=== PATIENT | female | born 1970 | race Caucasian/White ===

== ENCOUNTER 2016-11-15 18:43 | Emergency (ER) | payer BC ==
[~2016-11-15] VITALS: Ht 162.6 cm; Wt 110.7 kg
[2016-11-15 18:54] VITALS: BP 96/73
[2016-11-15] MEDS ORDERED: GABA300C3 PO ×2 (19:08)
[2016-11-15] MEDS ORDERED: RANI300T PO (19:08)
[2016-11-15] MEDS ORDERED: SERT50TA PO (19:08)
[2016-11-15] MEDS ORDERED: AMIT10TA PO (19:08)
[2016-11-15] MEDS ORDERED: ATOR40TA PO (19:08)
[2016-11-15] MEDS ORDERED: PHEN12.5 PR (19:08)
[2016-11-15] MEDS ORDERED: ONDA8TAB8 PO (19:08)
[2016-11-15] MEDS ORDERED: VITA100066 PO (19:08)
[2016-11-15] MEDS ORDERED: CETI10TA PO (19:09)
[2016-11-15] MEDS ORDERED: ONDANSETRON 4MG/2ML VIAL (J2405) IV ONE (21:00)
[2016-11-15] MEDS ORDERED: KETOROLAC 30 MG/ML VIAL (J1885) IV ONE (21:00)
[2016-11-15] MEDS ORDERED: NS 1,000 ML IV ONE (21:00)
== END 2016-11-15 23:21 | disposition home or self-care (01) ==
LOC: M ED 19:49
DX: E86.0 Dehydration (principal); R11.2 Nausea with vomiting, unspecified; R19.7 Diarrhea, unspecified; I10 Essential (primary) hypertension; K21.9 Gastro-esophageal reflux disease without esophagitis; E78.5 Hyperlipidemia, unspecified; E66.9 Obesity, unspecified; G89.29 Other chronic pain; F99 Mental disorder, not otherwise specified; F17.210 Nicotine dependence, cigarettes, uncomplicated; Z88.5 Allergy status to narcotic agent; Z88.8 Allergy status to other drugs, medicaments and biological substances; Z79.899 Other long term (current) drug therapy
CPT/HCPCS: 81001; 81025; 96361; 96374; 96375; 99282; J1885; J2405

== ENCOUNTER → 2016-11-15 | Outpatient (REF) | payer BC ==
[~2016-11-15] MED LIST: AMIT10TA PO; ATOR40TA PO; CETI10TA PO; GABA300C3 PO; ONDA8TAB8 PO; PHEN12.5 PR; RANI300T PO; SERT50TA PO; VITA100066 PO
[2016-11-15 12:52] LABS: BASO % 0.3 % (0.0-1.0); EOS # 0.1 K/mm3 (0.0-0.50); EOS % 1.5 % (0.0-3.0); LARGE UNSTAINED CELL # 0.1 K/mm3 (0.0-0.4); LYMPH # 2.7 K/mm3 (1.5-4.5); LYMPH % 36.8 % (24.0-44.0); MEAN CORPUSCULAR HEMOGLOBIN 31.4 pg (27.0-33.0); MEAN CORPUSCULAR HGB CONC 32.5 g/dl (32.0-36.5); MEAN CORPUSCULAR VOLUME 96.5 fl (80.0-96.0); MONO # 0.3 K/mm3 (0.0-0.8); MONO % 4.6 % (0.0-5.0); NEUTROPHILS # 3.8 K/mm3 (1.8-7.7); NEUTROPHILS % 54.7 % (36.0-66.0); PLATELET COUNT, AUTOMATED 167 k/mm3 (150-450); RED CELL DISTRIBUTION WIDTH 13.1 % (11.5-14.5)
[2016-11-15 13:11] LABS: ANION GAP 10 MEQ/L (8-16); BLOOD UREA NITROGEN 21 MG/DL (7-18); CALCIUM LEVEL 8.7 MG/DL (8.5-10.1); CARBON DIOXIDE LEVEL 27 MEQ/L (21-32); CHLORIDE LEVEL 107 MEQ/L (98-107); GLOMERULAR FILTRATION RATE > 60.0 (>58); GLUCOSE, FASTING 77 MG/DL (70-105); POTASSIUM SERUM 3.9 MEQ/L (3.5-5.1); SODIUM LEVEL 144 MEQ/L (136-145)
== END ==
LOC: M LABDRAW1 11:41
PROVIDERS: ATTEND Physician Assistant Medical
DX: R11.2 Nausea with vomiting, unspecified (principal)

== ENCOUNTER → 2017-02-16 | Outpatient (CLI) | payer BC ==
[~2017-02-16] MED LIST changes: +GABA-282 PO; -GABA300C3 PO
--- NOTE | 2017-02-16 13:40 | REP ---
MR LUMBAR SPINE WITHOUT CONTRAST: HISTORY: Back pain. Decreased signal intensity on T2-weighted is present in the L5-S1 intervertebral disc. The disc is decreased in height. These findings are consistent with disc degeneration. There is no disc bulge or herniation at the L1-2 through L3-4 levels. There is hypertrophy of the posterior articulating facets at the L3-4 level. The nerves exit the neural foramina without compression. A diffuse disc bulge is present at the L4-5 level. There is minimal compression of the thecal sac. There is hypertrophy of the posterior articulating facets. The L4 nerves exit the neural foramina without compression. A diffuse disc bulge is present at the L5-S1 level. This abuts the thecal sac. There is hypertrophy of the posterior articulating facets. There are 5 mm of grade 1 spondylolisthesis of L5 on S1. This is associated with L5 pars defects. There is compression of the L5 nerves in the neural foramina. The conus medullaris is normal in appearance terminating at the level of the T12-L1 intervertebral disc. Normal signal intensity is present in the lumbar vertebral bodies. IMPRESSION: 1. Diffuse disc bugle at the L4-5 level with minimal thecal sac compression. 2. Diffuse disc bulge at the L5-S1 level. This abuts the thecal sac. There is grade 1 spondylolisthesis of L5 on S1 with associated L5 pars defects. There is compression of the L5 nerves in he neural foramina. Signed by Joe Bar MD 02/16/2017 01:45 P
== END ==
LOC: M PLARAD 10:22
PROVIDERS: ATTEND Anesthesiology Pain Medicine
DX: M54.16 Radiculopathy, lumbar region (principal)

== ENCOUNTER 2017-05-17 17:58 | Emergency (ER) | payer BC ==
[~2017-05-17] VITALS: Ht 162.6 cm; Wt 132.0 kg
[~2017-05-17 17:58] MED LIST changes: -ATOR40TA PO; +ATOR40TA75 PO
[2017-05-17] MEDS ORDERED: SERT-155 (18:05)
[2017-05-17] MEDS ORDERED: OMEP40CA2 (18:05)
[2017-05-17] MEDS ORDERED: ONDANSETRON 4 MG ORAL DISINTEGRATING TAB (S0181) PO ONE (19:15)
[2017-05-17] MEDS ORDERED: KETOROLAC 60 MG/2 ML VIAL (J1885) IM ONE (19:15)
--- NOTE | 2017-05-17 19:56 | REP ---
Clinical: Abdominal pain with constipation and bloating. Technique: Two supine views of the abdomen and pelvis. Findings: Bowel gas pattern is nonspecific although mild fecal stasis cannot be excluded. No evidence for bowel obstruction or perforation. No organomegaly. No abnormal calcifications although phleboliths are identified in the pelvis. Skeletal structures demonstrate age-related changes. Impression: Nonspecific bowel gas pattern. Cannot exclude mild fecal stasis. Signed by Patrick Franklin MD 05/17/2017 07:47 P
[2017-05-17] MEDS ORDERED: NAPR500T PO (20:41)
[2017-05-17] MEDS ORDERED: MIRA3350 PO (20:41)
[2017-05-17] MEDS ORDERED: CYCL10TA PO (20:41)
[2017-05-17 20:50] VITALS: BP 131/72
== END 2017-05-17 22:10 | disposition home or self-care (01) ==
LOC: M ED 17:58
DX: S39.012A Strain of muscle, fascia and tendon of lower back, initial encounter (principal); K59.00 Constipation, unspecified; Z72.0 Tobacco use; X58.XXXA Exposure to other specified factors, initial encounter; Y92.89 Other specified places as the place of occurrence of the external cause; Y93.89 Activity, other specified; Y99.9 Unspecified external cause status
CPT/HCPCS: 74000; 96372; 99282; J1885; J3360

== ENCOUNTER → 2017-06-27 | Outpatient (REF) | payer BC ==
[~2017-06-27] MED LIST changes: +CYCL10TA PO; +MIRA3350 PO; +NAPR500T PO; +OMEP40CA2; +SERT-155
[2017-06-27 11:25] LABS: BASO % 0.5 % (0.0-1.0); EOS # 0.1 10^3/uL (0.0-0.50); EOS % 1.1 % (0.0-3.0); IMMATURE GRANULOCYTE % 0.2 % (0-0); LYMPH % 44.4 % (24.0-44.0); MEAN CORPUSCULAR HEMOGLOBIN 31.2 pg (27.0-33.0); MEAN CORPUSCULAR VOLUME 94.7 fl (80.0-96.0); MONO # 0.4 10^3/uL (0.0-0.8); MONO % 5.3 % (0.0-5.0); NEUTROPHILS # 3.2 10^3/uL (1.8-7.7); NEUTROPHILS % 48.5 % (36.0-66.0); PLATELET COUNT, AUTOMATED 174 10^3/uL (150-450); RED CELL DISTRIBUTION WIDTH 13.6 % (11.5-14.5); WHITE BLOOD COUNT 6.7 10^3/uL (4.0-10.0)
[2017-06-27 12:36] LABS: ERYTHROCYTE SEDIMENTATION RATE 15 mm/hr (0-20)
[2017-06-27 12:37] LABS: ALBUMIN 3.6 GM/DL (3.2-5.2); ALKALINE PHOSPHATASE 67 U/L (45-117); ALT/SGPT 25 U/L (12-78); ANION GAP 5 MEQ/L (8-16); AST/SGOT 12 U/L (15-37); BILIRUBIN,TOTAL 0.4 MG/DL (0.2-1.0); BLOOD UREA NITROGEN 11 MG/DL (7-18); CALCIUM LEVEL 8.8 MG/DL (8.5-10.1); CARBON DIOXIDE LEVEL 29 MEQ/L (21-32); CHLORIDE LEVEL 107 MEQ/L (98-107); CHOLESTEROL LEVEL 158 MG/DL (<200); GLOMERULAR FILTRATION RATE > 60.0 (>58); GLUCOSE, FASTING 79 MG/DL (70-105); POTASSIUM SERUM 4.2 MEQ/L (3.5-5.1); SODIUM LEVEL 141 MEQ/L (136-145); TOTAL PROTEIN 6.6 GM/DL (6.4-8.2); TRIGLYCERIDES LEVEL 153 MG/DL (<150)
== END ==
LOC: M LABDRAW1 09:31
PROVIDERS: ATTEND Physician Assistant Medical
DX: M25.50 Pain in unspecified joint (principal); E78.5 Hyperlipidemia, unspecified; R11.0 Nausea; E55.9 Vitamin D deficiency, unspecified

== ENCOUNTER 2018-04-04 11:57 | Emergency (ER) | payer BC ==
[2018-04-04 12:29] LABS: BASO % 0.4 % (0.0-1.0); EOS # 0.1 10^3/uL (0.0-0.50); EOS % 1.1 % (0.0-3.0); HEMATOCRIT 35.9 % (36.0-47.0); IMMATURE GRANULOCYTE % 0.1 % (0-3.0); LYMPH # 3.3 10^3/uL (1.5-4.5); LYMPH % 42.9 % (24.0-44.0); MEAN CORPUSCULAR HEMOGLOBIN 31.7 pg (27.0-33.0); MEAN CORPUSCULAR HGB CONC 33.4 g/dl (32.0-36.5); MEAN CORPUSCULAR VOLUME 94.7 fl (80.0-96.0); MONO # 0.5 10^3/uL (0.0-0.8); MONO % 6.2 % (0.0-5.0); NEUTROPHILS # 3.7 10^3/uL (1.8-7.7); NEUTROPHILS % 49.3 % (36.0-66.0); PLATELET COUNT, AUTOMATED 163 10^3/uL (150-450); RED BLOOD COUNT 3.79 10^6/uL (4.00-5.40); RED CELL DISTRIBUTION WIDTH 13.6 % (11.5-14.5); WHITE BLOOD COUNT 7.6 10^3/uL (4.0-10.0)
[2018-04-04 12:40] LABS: INR 1.02; PROTHROMBIN TIME 13.5 SECONDS (12.1-14.4)
[2018-04-04 13:13] LABS: ALBUMIN 3.7 GM/DL (3.2-5.2); ALBUMIN/GLOBULIN RATIO 1.12 (1.00-1.93); ALKALINE PHOSPHATASE 58 U/L (45-117); ALT/SGPT 24 U/L (12-78); ANION GAP 7 MEQ/L (8-16); AST/SGOT 10 U/L (7-37); BILIRUBIN,DIRECT 0.1 MG/DL (0.0-0.2); BILIRUBIN,TOTAL 0.6 MG/DL (0.2-1.0); BLOOD UREA NITROGEN 13 MG/DL (7-18); CALCIUM LEVEL 8.9 MG/DL (8.5-10.1); CARBON DIOXIDE LEVEL 27 MEQ/L (21-32); CHLORIDE LEVEL 110 MEQ/L (98-107); CPK CREATINE PHOSPHOKINASE 70 U/L (26-192); CREATININE FOR GFR 0.64 MG/DL (0.55-1.30); GLOMERULAR FILTRATION RATE > 60.0 (>58); GLUCOSE, FASTING 80 MG/DL (70-100); LIPASE 61 U/L (73-393); POTASSIUM SERUM 3.8 MEQ/L (3.5-5.1); SODIUM LEVEL 144 MEQ/L (136-145); TROPONIN I < 0.02 NG/ML (< 0.10)
[2018-04-04 13:19] LABS: CK-MB VALUE MASS 1.2 NG/ML (<3.6); MB/CK RELATIVE INDEX 1.71 (< OR =4); NT-PRO BNP 60 PG/ML (<125)
[2018-04-04] MEDS: NS 1,000 ML IV (13:48)
[2018-04-04] MEDS: KETOROLAC 30 MG/ML VIAL (J1885) IV (13:49)
[2018-04-04 14:04] LABS: AMORPHOUS SEDIMENT RFX SMALL (NEGATIVE); KETONE, URINE AUTO RFX TRACE mg/dL (NEGATIVE); LEUKOCYTE ESTERASE UR AUTO RFX NEGATIVE (NEGATIVE); MUCUS, URINE RFX SMALL (NEGATIVE); NITRITE, URINE AUTO RFX NEGATIVE (NEGATIVE); RBC, URINE AUTO RFX 3 /HPF (0-3); SPECIFIC GRAVITY UR AUTO RFX 1.011 (1.002-1.035); SQUAM EPITHELIAL CELL UR AURFX 4 /HPF (0-6); WBC, URINE AUTO RFX 2 /HPF (0-3)
== END 2018-04-04 16:34 | disposition home or self-care (01) ==
LOC: M ED 11:57
DX: B34.9 Viral infection, unspecified (principal); R07.89 Other chest pain; R00.1 Bradycardia, unspecified; R11.2 Nausea with vomiting, unspecified; K21.9 Gastro-esophageal reflux disease without esophagitis; E78.5 Hyperlipidemia, unspecified; M54.9 Dorsalgia, unspecified; K92.9 Disease of digestive system, unspecified; Z79.899 Other long term (current) drug therapy; Z88.8 Allergy status to other drugs, medicaments and biological substances; Z88.5 Allergy status to narcotic agent
CPT/HCPCS: J1885

== ENCOUNTER 2018-06-06 14:24 | Emergency (ER) | payer BC ==
[2018-06-06] MEDS: ONDANSETRON 4MG/2ML VIAL (J2405) IV (16:31)
[2018-06-06] MEDS: NS 1,000 ML IV (16:31)
[2018-06-06] MEDS: GASTROGRAFIN SOLUTION 30ML PO ×2 (16:39→17:12)
[2018-06-06 16:43] LABS: BASO # 0.1 10^3/uL (0.0-0.2); BASO % 0.6 % (0.0-1.0); EOS # 0.1 10^3/uL (0.0-0.50); EOS % 1.5 % (0.0-3.0); HEMATOCRIT 35.8 % (36.0-47.0); HEMOGLOBIN 11.9 g/dl (12.0-15.5); IMMATURE GRANULOCYTE % 0.4 % (0-3.0); LYMPH % 48.2 % (24.0-44.0); MEAN CORPUSCULAR HEMOGLOBIN 31.6 pg (27.0-33.0); MEAN CORPUSCULAR HGB CONC 33.2 g/dl (32.0-36.5); MONO # 0.5 10^3/uL (0.0-0.8); MONO % 5.7 % (0.0-5.0); NEUTROPHILS # 3.7 10^3/uL (1.8-7.7); NEUTROPHILS % 43.6 % (36.0-66.0); PLATELET COUNT, AUTOMATED 155 10^3/uL (150-450); RED BLOOD COUNT 3.77 10^6/uL (4.00-5.40); RED CELL DISTRIBUTION WIDTH 13.4 % (11.5-14.5); WHITE BLOOD COUNT 8.4 10^3/uL (4.0-10.0)
[2018-06-06 16:51] LABS: KETONE, URINE AUTO RFX NEGATIVE (NEGATIVE); LEUKOCYTE ESTERASE UR AUTO RFX NEGATIVE (NEGATIVE); MUCUS, URINE RFX SMALL (NEGATIVE); NITRITE, URINE AUTO RFX NEGATIVE (NEGATIVE); RBC, URINE AUTO RFX 2 /HPF (0-3); SQUAM EPITHELIAL CELL UR AURFX 2 /HPF (0-6); WBC, URINE AUTO RFX 1 /HPF (0-3)
[2018-06-06 17:14] LABS: ALBUMIN 3.4 GM/DL (3.2-5.2); ALBUMIN/GLOBULIN RATIO 0.94 (1.00-1.93); ALKALINE PHOSPHATASE 56 U/L (45-117); ALT/SGPT 19 U/L (12-78); ANION GAP 5 MEQ/L (8-16); AST/SGOT 13 U/L (7-37); BILIRUBIN,DIRECT < 0.1 MG/DL (0.0-0.2); BILIRUBIN,TOTAL 0.3 MG/DL (0.2-1.0); BLOOD UREA NITROGEN 12 MG/DL (7-18); CALCIUM LEVEL 8.1 MG/DL (8.5-10.1); CARBON DIOXIDE LEVEL 27 MEQ/L (21-32); CHLORIDE LEVEL 109 MEQ/L (98-107); GLOMERULAR FILTRATION RATE > 60.0 (>58); GLUCOSE, FASTING 73 MG/DL (70-100); LIPASE 92 U/L (73-393); POTASSIUM SERUM 4.2 MEQ/L (3.5-5.1); SODIUM LEVEL 141 MEQ/L (136-145)
[2018-06-06] MEDS ORDERED: ISOVUE-370 76% 100ML VIAL (Q9967) As Ordered (17:46)
[2018-06-06] MEDS: KETOROLAC 30 MG/ML VIAL (J1885) IV (18:33)
== END 2018-06-06 19:07 | disposition home or self-care (01) ==
LOC: M ED 14:24
DX: R10.9 Unspecified abdominal pain (principal); E78.5 Hyperlipidemia, unspecified; M54.30 Sciatica, unspecified side; Z79.899 Other long term (current) drug therapy; Z88.5 Allergy status to narcotic agent; Z88.8 Allergy status to other drugs, medicaments and biological substances; F17.210 Nicotine dependence, cigarettes, uncomplicated
CPT/HCPCS: Q9963

== ENCOUNTER 2019-03-09 23:56 | Emergency (ER) | payer BC ==
[~2019-03-09] VITALS: Ht 165.1 cm; Wt 109.5 kg
[~2019-03-09 23:56] MED LIST changes: -GABA-282 PO; +GABA-843 PO; +NAPR-837 PO; -NAPR500T PO; +ONDA4TAB6 PO; -PHEN12.5 PR; +PHEN1SUP10 PR; +SERT-141 PO; -SERT50TA PO
[2019-03-10] MEDS ORDERED: guaiFENesin/CODEINE SYRUP 5 ML UDC PO ONE (01:00)
[2019-03-10] MEDS ORDERED: GI COCKTAIL 50ML BTL(HYOSCYAMINE/MAALOX/LIDOCAINE VISCOUS)(1:3:1) PO ONE (01:00)
[2019-03-10] MEDS ORDERED: ONDANSETRON 4 MG ORAL DISINTEGRATING TAB (Q0162 PER 1MG) PO ONE (01:15)
[2019-03-10] MEDS ORDERED: GUAI1SOL7 PO (01:50)
[2019-03-10 01:54] VITALS: BP 136/70
--- NOTE | 2019-03-10 07:20 | REP ---
Clinical: Cough and chest pain . Comparison: 04/04/2018 . Technique: PA and lateral. Findings: The mediastinum and cardiac silhouette are normal. The lung tafoya are clear and without acute consolidation, effusion, or pneumothorax. The skeletal structures are intact and normal. Impression: 1. No acute cardiopulmonary process. Electronically Signed by Patrick Franklin MD 03/10/2019 07:12 A
== END 2019-03-10 01:58 | disposition home or self-care (01) ==
LOC: M ED 23:56
DX: J06.9 Acute upper respiratory infection, unspecified (principal); B34.9 Viral infection, unspecified; K21.9 Gastro-esophageal reflux disease without esophagitis; E78.5 Hyperlipidemia, unspecified; Z79.899 Other long term (current) drug therapy; Z88.5 Allergy status to narcotic agent; Z88.8 Allergy status to other drugs, medicaments and biological substances; F17.210 Nicotine dependence, cigarettes, uncomplicated
CPT/HCPCS: 71046; 99283; Q0162

== ENCOUNTER → 2019-03-24 | Outpatient (REF) | payer BC ==
[~2019-03-24] MED LIST changes: +GUAI1SOL7 PO
[2019-03-24 11:57] LABS: BASO % 0.5 % (0.0-1.0); EOS # 0.1 10^3/uL (0.0-0.50); HEMATOCRIT 37.7 % (36.0-47.0); HEMOGLOBIN 12.4 g/dl (12.0-15.5); LYMPH # 2.6 10^3/uL (1.5-4.5); LYMPH % 42.3 % (24.0-44.0); MEAN CORPUSCULAR HEMOGLOBIN 31.6 pg (27.0-33.0); MEAN CORPUSCULAR HGB CONC 32.9 g/dl (32.0-36.5); MEAN CORPUSCULAR VOLUME 95.9 fl (80.0-96.0); MONO # 0.3 10^3/uL (0.0-0.8); MONO % 5.4 % (0.0-5.0); NEUTROPHILS # 3.1 10^3/uL (1.8-7.7); NEUTROPHILS % 50.6 % (36.0-66.0); PLATELET COUNT, AUTOMATED 160 10^3/uL (150-450); RED BLOOD COUNT 3.93 10^6/uL (4.00-5.40); WHITE BLOOD COUNT 6.1 10^3/uL (4.0-10.0)
[2019-03-24 12:35] LABS: ALBUMIN 3.4 GM/DL (3.2-5.2); ALT/SGPT 17 U/L (12-78); BILIRUBIN,TOTAL 0.4 MG/DL (0.2-1.0); BLOOD UREA NITROGEN 13 MG/DL (7-18); CALCIUM LEVEL 8.7 MG/DL (8.5-10.1); CARBON DIOXIDE LEVEL 27 MEQ/L (21-32); CHLORIDE LEVEL 109 MEQ/L (98-107); CHOLESTEROL LEVEL 151 MG/DL (<200); CHOLESTEROL RISK RATIO 3.511 (<5); CREATININE FOR GFR 0.71 MG/DL (0.55-1.30); GLOMERULAR FILTRATION RATE > 60.0 (>58); GLUCOSE, FASTING 84 MG/DL (70-100); HDL CHOLESTEROL 43 MG/DL (>40); LDL CHOLESTEROL 89 MG/DL (<100); NON-HDL-C 108 MG/DL; POTASSIUM SERUM 4.4 MEQ/L (3.5-5.1); SODIUM LEVEL 142 MEQ/L (136-145); TOTAL PROTEIN 6.6 GM/DL (6.4-8.2); TRIGLYCERIDES LEVEL 96 MG/DL (<150); TROPONIN I < 0.02 NG/ML (< 0.10)
== END ==
LOC: M LABDRAW1 11:01
PROVIDERS: ATTEND Family Medicine
DX: R07.9 Chest pain, unspecified (principal)

== ENCOUNTER 2019-09-05 10:06 | Emergency (ER) | payer BC ==
[~2019-09-05] VITALS: Ht 162.6 cm; Wt 111.0 kg
[~2019-09-05 10:06] MED LIST changes: -OMEP40CA2; +OMEP40CA97; -SERT-155; +SERT50TA29
--- NOTE | 2019-09-05 10:40 | REP ---
Clinical: Acute chest pain . Comparison: 03/10/2019 . Findings: The mediastinum and cardiac silhouette are stable and within normal limits for portable technique. The lung tafoya are clear without acute consolidation, effusion, or pneumothorax. Skeletal structures are intact. Impression: No acute cardiopulmonary process appreciated. Electronically Signed by Patrick Franklin MD 09/05/2019 10:31 A
[2019-09-05 10:45] LABS: BASO % 0.4 % (0.0-1.0); EOS # 0.2 10^3/uL (0.0-0.5); EOS % 1.7 % (0.0-3.0); HEMATOCRIT 41.4 % (36.0-47.0); HEMOGLOBIN 13.3 g/dl (12.0-15.5); LYMPH # 3.8 10^3/uL (1.5-5.0); LYMPH % 42.1 % (24.0-44.0); MEAN CORPUSCULAR HEMOGLOBIN 31.5 pg (27.0-33.0); MEAN CORPUSCULAR HGB CONC 32.1 g/dl (32.0-36.5); MEAN CORPUSCULAR VOLUME 98.1 fl (80.0-96.0); MONO # 0.6 10^3/uL (0.0-0.8); MONO % 6.5 % (0.0-5.0); NEUTROPHILS # 4.4 10^3/uL (1.5-8.5); NEUTROPHILS % 48.9 % (36.0-66.0); PLATELET COUNT, AUTOMATED 174 10^3/uL (150-450); RED BLOOD COUNT 4.22 10^6/uL (4.00-5.40); WHITE BLOOD COUNT 9.1 10^3/uL (4.0-10.0)
[2019-09-05] MEDS ORDERED: GI COCKTAIL 50ML BTL(HYOSCYAMINE/MAALOX/LIDOCAINE VISCOUS)(1:3:1) PO ONE (10:45)
[2019-09-05] MEDS ORDERED: ONDANSETRON 4MG/2ML VIAL (J2405) IV ONE (10:45)
[2019-09-05 10:55] LABS: INR 1.03; PROTHROMBIN TIME 13.2 SECONDS (11.8-14.0)
[2019-09-05 10:56] LABS: PARTIAL THROMBOPLASTIN TIME 30.8 SECONDS (25.0-38.4)
[2019-09-05 11:17] LABS: ALBUMIN 3.8 GM/DL (3.2-5.2); ALT/SGPT 17 U/L (12-78); BILIRUBIN,DIRECT 0.1 MG/DL (0.0-0.2); BILIRUBIN,TOTAL 0.4 MG/DL (0.2-1.0); BLOOD UREA NITROGEN 15 MG/DL (7-18); CALCIUM LEVEL 8.9 MG/DL (8.5-10.1); CARBON DIOXIDE LEVEL 28 MEQ/L (21-32); CHLORIDE LEVEL 109 MEQ/L (98-107); CK-MB VALUE MASS < 1.0 NG/ML (<3.6); CPK CREATINE PHOSPHOKINASE 55 U/L (26-192); CREATININE FOR GFR 0.74 MG/DL (0.55-1.30); FREE T4 0.98 NG/DL (0.76-1.46); GLOMERULAR FILTRATION RATE > 60.0 (>51); GLUCOSE, FASTING 79 MG/DL (70-100); LIPASE 95 U/L (73-393); MB/CK RELATIVE INDEX 1.82 (< OR =4); SODIUM LEVEL 143 MEQ/L (136-145); TOTAL PROTEIN 7.1 GM/DL (6.4-8.2); TROPONIN I < 0.02 NG/ML (< 0.10)
[2019-09-05] MEDS ORDERED: DEXI30CA2 PO (11:25)
[2019-09-05] MEDS ORDERED: SUCRALFATE 1 GM TAB PO ONE (12:00)
[2019-09-05 12:27] LABS: D-DIMER QUANT 659.68 ng/ml (<500)
[2019-09-05] MEDS ORDERED: ISOVUE-370 76% 100ML VIAL (Q9967) As Ordered ONE (12:47)
--- NOTE | 2019-09-05 13:18 | REP ---
Clinical: Acute chest pain. Technique: Axial contrast enhanced images from the thoracic inlet to the upper abdomen using 100 ml Isovue 370 intravenous contrast material with coronal and sagittal re-formations. Findings: Satisfactory enhancement of the pulmonary vasculature is achieved and no filling defects are identified to suggest pulmonary embolus. Thoracic aorta is normal caliber without aneurysm or dissection. Heart and pericardium are normal. Bilateral lung tafoya are well aerated and clear without acute pulmonary parenchymal consolidation or atelectasis. No nodule or mass lesion. No pleural effusion/reaction. No pneumothorax. No adenopathy. Impression: No evidence for pulmonary embolus. No acute pleuroparenchymal or mediastinal process. Electronically Signed by Patrick Franklin MD 09/05/2019 01:09 P
--- NOTE | 2019-09-05 13:21 | REP ---
Clinical: Acute abdominal pain. Technique: Axial contrast enhanced images from the lung bases to the pubic symphysis using 100 ml Isovue 370 intravenous contrast material with coronal and sagittal re-formations. Comparison: 06/06/2018. Findings: Lung bases are clear. Visualized heart and pericardium normal. Liver, spleen, pancreas, gallbladder, bilateral adrenal glands and kidneys are normal. The enteric system is without obstruction or acute inflammatory process. Scattered sigmoid diverticula noted without acute diverticulitis. Pelvis demonstrates normal bladder and evidence for prior hysterectomy. No ascites. No free air. No adenopathy. Abdominal aorta without aneurysm or dissection. Musculoskeletal structures without focal aggressive lesion. Impression: No acute abdominopelvic pathology appreciated. Electronically Signed by Patrick Franklin MD 09/05/2019 01:12 P
[2019-09-05 17:30] LABS: CPK CREATINE PHOSPHOKINASE 46 U/L (26-192); MB/CK RELATIVE INDEX 2.17 (< OR =4); TROPONIN I < 0.02 NG/ML (< 0.10)
[2019-09-05] MEDS ORDERED: OMEP40CA97 PO (18:11)
[2019-09-05] MEDS ORDERED: SUCR1TA PO (18:11)
[2019-09-05 18:16] VITALS: BP 109/71
--- NOTE | 2019-09-07 14:59 | ECGEPIP ---
[facility] - ED Test Date: 2019-09-05 Pat Name: GEORGE MCKENZIE Department: Room: - Gender: Female Crew Boss: : 1970 Requested By: CHRIS Leblanc Order Number: [id number] Reading MD: Tee Reed Measurements Intervals [place] Rate: 60 P: 43 NC: 195 QRS: 8 QRSD: 91 T: 29 QT: 387 QTc: 389 Interpretive Statements SINUS RHYTHM LOW QRS VOLTAGE IN PRECORDIAL LEADS SIMILAR TO 04/04/18 Electronically Signed on 09-07-2019 14:59:06 EST by Tee Reed
--- NOTE | 2019-09-07 15:10 | ECGEPIP ---
[facility] - ED Test Date: 2019-09-05 Pat Name: GEORGE MCKENZIE Department: Room: - Gender: Female Barrelhead Inspector: ER : 1970 Requested By: CHRIS Leblanc Order Number: [id number] Reading MD: Tee Reed Measurements Intervals [place] Rate: 50 P: 56 [place]: 194 QRS: 27 QRSD: 84 T: 40 QT: 431 QTc: 395 Interpretive Statements SINUS BRADYCARDIA WITH SINUS ARRHYTHMIA SIMILAR TO PRIOR ON SAME DATE Electronically Signed on 09-07-2019 15:10:48 EST by Tee Reed
== END 2019-09-05 18:49 | disposition home or self-care (01) ==
LOC: M ED 10:06
DX: K21.9 Gastro-esophageal reflux disease without esophagitis (principal); E78.5 Hyperlipidemia, unspecified; Z79.899 Other long term (current) drug therapy; Z88.5 Allergy status to narcotic agent; Z88.8 Allergy status to other drugs, medicaments and biological substances; F17.210 Nicotine dependence, cigarettes, uncomplicated
CPT/HCPCS: 71045; 71275; 74177; 80048; 80076; 82550; 82553; 83690; 84439; 84443; 84484; 85025; 85379; 85610; 85730; 93005; 93041; 94760; 96374; 99285; J2405; Q9967

== ENCOUNTER → 2019-09-11 | Outpatient (CLI) | payer BC ==
[~2019-09-11] MED LIST changes: +DEXI30CA2 PO; +OMEP40CA97 PO; +SUCR1TA PO
[2019-09-11 07:13] LABS: BASO % 0.5 % (0.0-1.0); EOS # 0.1 10^3/uL (0.0-0.5); EOS % 1.5 % (0.0-3.0); HEMATOCRIT 36.1 % (36.0-47.0); HEMOGLOBIN 11.9 g/dl (12.0-15.5); LYMPH # 3.8 10^3/uL (1.5-5.0); LYMPH % 51.3 % (24.0-44.0); MEAN CORPUSCULAR HEMOGLOBIN 31.6 pg (27.0-33.0); MEAN CORPUSCULAR VOLUME 95.8 fl (80.0-96.0); MONO # 0.4 10^3/uL (0.0-0.8); MONO % 5.4 % (0.0-5.0); PLATELET COUNT, AUTOMATED 158 10^3/uL (150-450); RED BLOOD COUNT 3.77 10^6/uL (4.00-5.40); WHITE BLOOD COUNT 7.4 10^3/uL (4.0-10.0)
[2019-09-11 07:39] LABS: ALBUMIN 3.4 GM/DL (3.2-5.2); ALT/SGPT 15 U/L (12-78); BILIRUBIN,TOTAL 0.4 MG/DL (0.2-1.0); BLOOD UREA NITROGEN 15 MG/DL (7-18); CALCIUM LEVEL 8.8 MG/DL (8.5-10.1); CARBON DIOXIDE LEVEL 25 MEQ/L (21-32); CHLORIDE LEVEL 112 MEQ/L (98-107); CHOLESTEROL LEVEL 148 MG/DL (<200); CHOLESTEROL RISK RATIO 3.288 (<5); CREATININE FOR GFR 0.69 MG/DL (0.55-1.30); GLOMERULAR FILTRATION RATE > 60.0 (>51); GLUCOSE, FASTING 82 MG/DL (70-100); HDL CHOLESTEROL 45 MG/DL (>40); LDL CHOLESTEROL 89 MG/DL (<100); MAGNESIUM LEVEL 1.9 MG/DL (1.8-2.4); NON-HDL-C 103 MG/DL; RHEUMATOID FACTOR QUANT < 10.0 IU/ML (<15.0); SODIUM LEVEL 142 MEQ/L (136-145); TOTAL PROTEIN 6.2 GM/DL (6.4-8.2); TRIGLYCERIDES LEVEL 72 MG/DL (<150)
== END ==
LOC: M LAB 06:41
PROVIDERS: ATTEND Physician Assistant
DX: M12.9 Arthropathy, unspecified (principal); E66.01 Morbid (severe) obesity due to excess calories; E55.9 Vitamin D deficiency, unspecified

== ENCOUNTER → 2020-01-21 | Outpatient (CLI) | payer BC ==
[~2020-01-21] MED LIST changes: +CYCL-707 PO; -CYCL10TA PO
--- NOTE | 2020-01-22 02:33 | REP ---
Clinical: Trauma. Technique: AP, lateral, bilateral oblique views right hand . Findings: The osseous structures and joint spaces are intact and normal. There is no evidence for acute fracture or dislocation. Surrounding soft tissues are unremarkable. No subcutaneous emphysema or radiodense foreign body. Impression: No acute fracture or dislocation. Electronically Signed by Patrick Franklin MD 01/22/2020 02:24 A
== END ==
LOC: M WUC 15:04
PROVIDERS: ATTEND Physician Assistant
DX: S60.221A Contusion of right hand, initial encounter (principal); X58.XXXA Exposure to other specified factors, initial encounter; Y92.89 Other specified places as the place of occurrence of the external cause; Y93.9 Activity, unspecified; Y99.9 Unspecified external cause status

== ENCOUNTER → 2020-02-25 | Outpatient (CLI) | payer BC ==
[~2020-02-25] MED LIST changes: +DEXI60CA2 PO; +FAMO40TA3 PO; +GABA-282 PO; -GABA-843 PO; +GABA-845 PO; +REGL5TAB2 PO; +SUCR1TAB56 PO
[2020-02-25 16:21] LABS: BASO % 0.5 % (0.0-1.0); EOS # 0.1 10^3/uL (0.0-0.5); EOS % 1.2 % (0.0-3.0); HEMATOCRIT 37.7 % (36.0-47.0); HEMOGLOBIN 12.2 g/dl (12.0-15.5); LYMPH # 3.5 10^3/uL (1.5-5.0); LYMPH % 42.1 % (24.0-44.0); MEAN CORPUSCULAR HEMOGLOBIN 30.9 pg (27.0-33.0); MEAN CORPUSCULAR HGB CONC 32.4 g/dl (32.0-36.5); MEAN CORPUSCULAR VOLUME 95.4 fl (80.0-96.0); MONO # 0.6 10^3/uL (0.0-0.8); MONO % 6.7 % (0.0-5.0); NEUTROPHILS % 49.3 % (36.0-66.0); PLATELET COUNT, AUTOMATED 156 10^3/uL (150-450); RED BLOOD COUNT 3.95 10^6/uL (4.00-5.40); WHITE BLOOD COUNT 8.2 10^3/uL (4.0-10.0)
[2020-02-25 16:46] LABS: ALBUMIN 3.6 GM/DL (3.2-5.2); ALT/SGPT 18 U/L (12-78); BILIRUBIN,TOTAL 0.4 MG/DL (0.2-1.0); BLOOD UREA NITROGEN 14 MG/DL (7-18); CARBON DIOXIDE LEVEL 28 MEQ/L (21-32); CHLORIDE LEVEL 109 MEQ/L (98-107); CREATININE FOR GFR 0.73 MG/DL (0.55-1.30); GLOMERULAR FILTRATION RATE > 60.0 (>51); GLUCOSE, FASTING 103 MG/DL (70-100); POTASSIUM SERUM 3.8 MEQ/L (3.5-5.1); SODIUM LEVEL 140 MEQ/L (136-145); TOTAL PROTEIN 6.5 GM/DL (6.4-8.2)
== END ==
LOC: M WUC 15:05
PROVIDERS: ATTEND Nurse Practitioner Family
DX: K62.5 Hemorrhage of anus and rectum (principal)

== ENCOUNTER → 2020-02-26 | Outpatient (REF) | payer BC ==
[~2020-02-26] MED LIST changes: -DEXI60CA2 PO; -FAMO40TA3 PO; -GABA-282 PO; +GABA-843 PO; -GABA-845 PO; -REGL5TAB2 PO; -SUCR1TAB56 PO
== END ==
LOC: M LAB REF 16:04
PROVIDERS: ATTEND Nurse Practitioner Family
DX: K62.5 Hemorrhage of anus and rectum (principal)

== ENCOUNTER 2020-04-25 20:25 | Emergency (ER) | payer BC ==
[2020-04-25] MEDS ORDERED: KETOROLAC 30 MG/ML 1ML VIAL As Ordered ONE (20:27)
[2020-04-25] MEDS ORDERED: ONDANSETRON 4MG/2ML VIAL ONE (20:27)
[2020-04-25] MEDS ORDERED: KETOROLAC 30 MG/ML 1ML VIAL ONE (20:27)
[2020-04-25] MEDS ORDERED: ONDANSETRON 4MG/2ML VIAL As Ordered ONE (20:27)
[2020-04-28] MEDS ORDERED: KETOROLAC 30 MG/ML 1ML VIAL As Ordered ONE (06:41)
[2020-05-11] MEDS ORDERED: SERT50TA29 (10:24)
[2020-05-11] MEDS ORDERED: SUCR1TAB56 PO (10:24)
[2020-05-11] MEDS ORDERED: DEXI60CA2 PO (10:24)
[2020-06-07 11:18] LABS: INR 1.03; PROTHROMBIN TIME 13.7 SECONDS (12.5-14.3)
[2020-06-09 19:46] LABS: HEMATOCRIT 40.2 % (36.0-47.0); HEMOGLOBIN 13.4 g/dl (12.0-15.5); MEAN CORPUSCULAR HEMOGLOBIN 31.5 pg (27.0-33.0); MEAN CORPUSCULAR HGB CONC 33.3 g/dl (32.0-36.5); MEAN CORPUSCULAR VOLUME 94.6 fl (80.0-96.0); PLATELET COUNT, AUTOMATED 175 10^3/uL (150-450); RED BLOOD COUNT 4.25 10^6/uL (4.00-5.40); WHITE BLOOD COUNT 8.3 10^3/uL (4.0-10.0)
[2020-07-11 11:20] LABS: ALBUMIN 3.8 GM/DL (3.2-5.2); ALT/SGPT 16 U/L (12-78); BILIRUBIN,TOTAL 0.3 MG/DL (0.2-1.0); BLOOD UREA NITROGEN 18 MG/DL (7-18); CALCIUM LEVEL 8.9 MG/DL (8.5-10.1); CARBON DIOXIDE LEVEL 26 MEQ/L (21-32); CHLORIDE LEVEL 110 MEQ/L (98-107); CK-MB VALUE MASS < 1.0 NG/ML (<3.6); CPK CREATINE PHOSPHOKINASE 46 U/L (26-192); CREATININE FOR GFR 0.76 MG/DL (0.55-1.30); GLOMERULAR FILTRATION RATE > 60.0 (>51); GLUCOSE, FASTING 86 MG/DL (70-100); LIPASE 85 U/L (73-393); MB/CK RELATIVE INDEX 2.17 (< OR =4); SODIUM LEVEL 142 MEQ/L (136-145); TOTAL PROTEIN 7.1 GM/DL (6.4-8.2); TROPONIN I < 0.02 NG/ML (< 0.10)
== END 2020-04-25 22:15 | disposition home or self-care (01) ==
LOC: M ED 20:25
DX: R10.9 Unspecified abdominal pain (principal); K21.9 Gastro-esophageal reflux disease without esophagitis; M43.17 Spondylolisthesis, lumbosacral region; M51.27 Other intervertebral disc displacement, lumbosacral region; M48.07 Spinal stenosis, lumbosacral region; Z79.899 Other long term (current) drug therapy; Z88.5 Allergy status to narcotic agent; Z88.8 Allergy status to other drugs, medicaments and biological substances
CPT/HCPCS: 74176; 80053; 82550; 82553; 83690; 84484; 85027; 85610; 96374; 96375; 99284; J1885; J2405

== ENCOUNTER 2020-04-28 05:56 | Emergency (ER) | payer BC ==
[~2020-04-28] VITALS: Ht 165.1 cm; Wt 106.3 kg
[2020-04-28] MEDS ORDERED: GABA-845 PO (06:06)
[2020-04-28] MEDS ORDERED: KETOROLAC 30 MG/ML 1ML VIAL IV ONE ×2 (06:45)
[2020-04-28] MEDS ORDERED: methocarbamoL 750 MG TAB PO ONE (06:45)
[2020-04-28] MEDS ORDERED: NS 1,000 ML IV ONE (06:45)
[2020-04-28 07:18] LABS: BASO % 0.6 % (0.0-1.0); EOS # 0.1 10^3/uL (0.0-0.5); EOS % 1.1 % (0.0-3.0); HEMATOCRIT 36.7 % (36.0-47.0); HEMOGLOBIN 12.1 g/dl (12.0-15.5); LYMPH % 42.5 % (24.0-44.0); MEAN CORPUSCULAR HEMOGLOBIN 31.3 pg (27.0-33.0); MEAN CORPUSCULAR VOLUME 95.1 fl (80.0-96.0); MONO # 0.5 10^3/uL (0.0-0.8); MONO % 6.9 % (0.0-5.0); NEUTROPHILS # 3.5 10^3/uL (1.5-8.5); NEUTROPHILS % 48.5 % (36.0-66.0); PLATELET COUNT, AUTOMATED 154 10^3/uL (150-450); RED BLOOD COUNT 3.86 10^6/uL (4.00-5.40); WHITE BLOOD COUNT 7.1 10^3/uL (4.0-10.0)
--- NOTE | 2020-04-28 07:53 | REPVR ---
PROCEDURE INFORMATION: Exam: US Abdomen, Limited; Right Upper Quadrant Exam date and time: 04/28/2020 7:36 AM Age: 49 years old Clinical indication: Abdominal pain; Flank; Right upper quadrant (ruq); Additional info: Ruq/shoulder pain since 3 am this morning TECHNIQUE: Imaging protocol: US abdomen. Real time ultrasound with image documentation. Limited exam focused on the right upper quadrant. COMPARISON: GALLBLADDER US 07/29/2016 5:13 PM FINDINGS: Liver: Fatty infiltration of the liver without focal mass. Gallbladder: Newly visualized nonshadowing 6 mm nodular echogenic focus contiguous with the gallbladder wall, suggesting polyp. No gallbladder wall thickening, edema, or pericholecystic fluid. Common bile duct: Borderline dilatation of the incompletely visualized common bile duct measuring 7 mm in maximum diameter. Pancreas: Inhomogeneous echotexture in the pancreas, which is partially obscured by bowel gas. Right kidney: Normal right renal morphology. No hydronephrosis. Other findings: Additional findings as described above. IMPRESSION: 1. Nonshadowing 6 mm nodular echogenic focus contiguous with the gallbladder wall, suggesting polyp. 2. Borderline dilatation of the incompletely visualized common bile duct measuring 7 mm in maximum diameter. 3. Additional findings as described above. Electronically signed by: Stefano Franklin On 04/28/2020 07:53:59 AM
[2020-04-28 08:02] LABS: ALBUMIN 3.6 GM/DL (3.2-5.2); ALT/SGPT 16 U/L (12-78); BILIRUBIN,DIRECT < 0.1 MG/DL (0.0-0.2); BILIRUBIN,TOTAL 0.5 MG/DL (0.2-1.0); BLOOD UREA NITROGEN 16 MG/DL (7-18); CARBON DIOXIDE LEVEL 28 MEQ/L (21-32); CHLORIDE LEVEL 110 MEQ/L (98-107); CREATININE FOR GFR 0.89 MG/DL (0.55-1.30); GLOMERULAR FILTRATION RATE > 60.0 (>51); GLUCOSE, FASTING 81 MG/DL (70-100); LIPASE 70 U/L (73-393); POTASSIUM SERUM 4.2 MEQ/L (3.5-5.1); SODIUM LEVEL 141 MEQ/L (136-145); TOTAL PROTEIN 6.7 GM/DL (6.4-8.2)
[2020-04-28 08:14] LABS: APPEARANCE, URINE CLOUDY (CLEAR); BACTERIA, URINE AUTO 1+ (NEGATIVE); BILIRUBIN, URINE AUTO 1+ (NEGATIVE); BLOOD, URINE BLOOD NEGATIVE (NEGATIVE); COLOR, URINE AMBER (YELLOW); GLUCOSE, URINE (UA) AUTO NEGATIVE (NEGATIVE); KETONE, URINE AUTO NEGATIVE (NEGATIVE); LEUKOCYTE ESTERASE, URINE AUTO NEGATIVE (NEGATIVE); MUCUS, URINE MODERATE (NEGATIVE); NITRITE, URINE AUTO NEGATIVE (NEGATIVE); PROTEIN, URINE AUTO 1+ mg/dL (NEGATIVE); RBC, URINE AUTO 1 /HPF (0-3); SPECIFIC GRAVITY URINE AUTO 1.028 (1.002-1.035); SQUAMOUS EPITHELIAL CELL UR AU 10 /HPF (0-6); WBC, URINE AUTO 6 /HPF (0-3)
[2020-04-28 08:38] VITALS: BP 108/53
[2020-05-11] MEDS ORDERED: DEXI60CA2 PO (10:24)
[2020-05-11] MEDS ORDERED: SERT50TA29 (10:24)
[2020-05-11] MEDS ORDERED: SUCR1TAB56 PO (10:24)
== END 2020-04-28 08:40 | disposition home or self-care (01) ==
LOC: M ED 05:56
DX: M54.5 Low back pain (principal); M62.838 Other muscle spasm; K82.4 Cholesterolosis of gallbladder; F33.9 Major depressive disorder, recurrent, unspecified; K21.9 Gastro-esophageal reflux disease without esophagitis; Z79.899 Other long term (current) drug therapy; Z88.5 Allergy status to narcotic agent; Z88.8 Allergy status to other drugs, medicaments and biological substances; F17.210 Nicotine dependence, cigarettes, uncomplicated
CPT/HCPCS: 76705; 80048; 80076; 81001; 83690; 85025; 96361; 96374; 99284; J1885

== ENCOUNTER → 2020-05-13 | Outpatient (CLI) | payer BC ==
[~2020-05-13] MED LIST changes: +DEXI60CA2 PO; +GABA-845 PO; +SUCR1TAB56 PO
== END ==
LOC: M LABSMTC 12:41
PROVIDERS: ATTEND Anesthesiology
DX: Z01.812 Encounter for preprocedural laboratory examination (principal); Z20.828 Contact with and (suspected) exposure to other viral communicable diseases
CPT/HCPCS: C9803; U0003

== ENCOUNTER 2020-05-18 12:12 | Day surgery (SDC) | payer BC ==
[~2020-05-18] VITALS: Ht 162.6 cm; Wt 107.0 kg
[~2020-05-18 12:12] MED LIST changes: +NS 1,000 ML IV ONE
[2020-05-18] MEDS ORDERED: propofoL 500 MG/50 ML VIAL As Ordered ONE (13:07)
[2020-05-18] MEDS ORDERED: fentaNYL 100 MCG/2 ML INJECTION (J3010) As Ordered ONE (13:07)
[2020-05-18] MEDS ORDERED: LIDOCAINE 2% 100MG/5ML SDV (FOR ANES.) As Ordered ONE (13:51)
[2020-05-18 14:35] VITALS: BP 101/54
--- NOTE | 2020-05-19 11:39 | ROOR ---
Patient Name: Nichole Watson Procedure Date: 05/18/2020 10:44 AM Date of : 1970 Age: 49 Room: [facility] Gender: Female Note Status: Finalized Procedure: Colonoscopy Indications: Screening in patient at increased risk: Colorectal cancer in mother before age 60, High risk colon cancer surveillance: Personal history of colonic polyps Providers: Osmin THOMPSON MD Referring MD: Maxine Fermin MD Requesting Provider: Medicines: Monitored Anesthesia Care Complications: No immediate complications. Procedure: Pre-Anesthesia Assessment: - The heart rate, respiratory rate, oxygen saturations, blood pressure, adequacy of pulmonary ventilation, and response to care were monitored throughout the procedure. The Colonoscope was introduced through the anus and advanced to the terminal ileum, with identification of the appendiceal orifice and IC valve. The colonoscopy was performed without difficulty. The patient tolerated the procedure well. The quality of the bowel preparation was good. Findings: The perianal and digital rectal examinations were normal. Three sessile polyps were found in the ascending colon. The polyps were 5 to 6 mm in size. These polyps were removed with a cold snare. Resection and retrieval were complete. Internal hemorrhoids were found during retroflexion. The hemorrhoids were small/medium-sized. The exam was otherwise without abnormality on direct and retroflexion views. Impression: - Three 5 to 6 mm polyps in the ascending colon, removed with a cold snare. Resected and retrieved. - Small Internal hemorrhoids. - The examination was otherwise normal on direct and retroflexion views. Recommendation: - Repeat colonoscopy in 3 years for surveillance. Osmin Thompson MD Osmin THOMPSON MD 05/18/2020 2:15:34 PM Electronically signed by Osmin THOMPSON MD Number of Addenda: 0 Note Initiated On: 05/18/2020 10:44 AM Estimated Blood Loss: Estimated blood loss: none.
--- NOTE | 2020-05-19 11:39 | ROOR ---
Patient Name: Nichole Watson Procedure Date: 05/18/2020 1:08 PM Date of : 1970 Age: 49 Room: [facility] Gender: Female Note Status: Finalized Procedure: Upper GI endoscopy Indications: Heartburn Providers: Osmin THOMPSON MD Referring MD: Maxine Fermin MD Requesting Provider: Medicines: Monitored Anesthesia Care Complications: No immediate complications. Procedure: Pre-Anesthesia Assessment: - The heart rate, respiratory rate, oxygen saturations, blood pressure, adequacy of pulmonary ventilation, and response to care were monitored throughout the procedure. The Endoscope was introduced through the mouth, and advanced to the second part of duodenum. The upper GI endoscopy was accomplished without difficulty. The patient tolerated the procedure well. Findings: Scattered mild inflammation characterized by erythema was found in the gastric body. Biopsies were taken with a cold forceps for histology. Small Hiatal Hernia. The exam of the stomach was otherwise normal. The examined duodenum was normal. The examined esophagus was normal. Impression: - Normal esophagus. - Mild patchy gastritis/gastropathy. Biopsied. - Small Hiatal Hernia. - Otherwise normal stomach. - Normal examined duodenum. Recommendation: - Continue present medications. - Telephone endoscopist for pathology results in 2 weeks. - Follow an antireflux regimen. Osmin Thompson MD Osmin THOMPSON MD 05/18/2020 1:55:46 PM Electronically signed by Osmin THOMPSON MD Number of Addenda: 0 Note Initiated On: 05/18/2020 1:08 PM Estimated Blood Loss: Estimated blood loss: none.
== END 2020-05-18 14:49 | disposition home or self-care (01) ==
LOC: M OPP 12:12
PROVIDERS: ATTEND Internal Medicine Gastroenterology
DX: Z12.11 Encounter for screening for malignant neoplasm of colon (principal); Z86.010 Personal history of colon polyps; Z80.0 Family history of malignant neoplasm of digestive organs; D12.2 Benign neoplasm of ascending colon; K64.8 Other hemorrhoids; K29.70 Gastritis, unspecified, without bleeding; R12 Heartburn; K44.9 Diaphragmatic hernia without obstruction or gangrene; F17.210 Nicotine dependence, cigarettes, uncomplicated; Z79.899 Other long term (current) drug therapy; Z88.5 Allergy status to narcotic agent; Z88.8 Allergy status to other drugs, medicaments and biological substances
CPT/HCPCS: 43239; 45385; 88305; 88342; J3010

== ENCOUNTER → 2020-09-24 | Outpatient (REF) | payer BC ==
[~2020-09-24] MED LIST changes: +GABA-282 PO; -GABA-843 PO; -NS 1,000 ML IV ONE; +REGL5TAB2 PO
[2020-09-24 16:00] LABS: HEMOGLOBIN A1c 5.8 %
[2020-09-24 16:07] LABS: ALBUMIN 3.9 GM/DL (3.2-5.2); ALT/SGPT 20 U/L (12-78); BILIRUBIN,TOTAL 0.3 MG/DL (0.2-1.0); BLOOD UREA NITROGEN 11 MG/DL (7-18); CALCIUM LEVEL 8.7 MG/DL (8.5-10.1); CARBON DIOXIDE LEVEL 31 MEQ/L (21-32); CHLORIDE LEVEL 108 MEQ/L (98-107); CHOLESTEROL LEVEL 192 MG/DL (<200); CHOLESTEROL RISK RATIO 3.918 (<5); CREATININE FOR GFR 0.71 MG/DL (0.55-1.30); FREE T4 0.91 NG/DL (0.76-1.46); GLOMERULAR FILTRATION RATE > 60.0 (>51); GLUCOSE, FASTING 73 MG/DL (70-100); HDL CHOLESTEROL 49 MG/DL (>40); LDL CHOLESTEROL 115 MG/DL (<100); NON-HDL-C 143 MG/DL; POTASSIUM SERUM 4.7 MEQ/L (3.5-5.1); RHEUMATOID FACTOR QUANT < 10.0 IU/ML (<15.0); SODIUM LEVEL 142 MEQ/L (136-145); TOTAL PROTEIN 6.8 GM/DL (6.4-8.2); TRIGLYCERIDES LEVEL 141 MG/DL (<150)
[2020-09-24 16:09] LABS: TOTAL 25(OH) VITAMIN D 29.4 NG/ML (30.0-100.0)
== END ==
LOC: M WUC 14:43
PROVIDERS: ATTEND Nurse Practitioner Family
DX: Z00.00 Encounter for general adult medical examination without abnormal findings (principal); M15.0 Primary generalized (osteo)arthritis

== ENCOUNTER 2020-09-27 15:20 | Emergency (ER) | payer BC ==
[~2020-09-27] VITALS: Ht 162.6 cm; Wt 108.3 kg
[~2020-09-27 15:20] MED LIST changes: -REGL5TAB2 PO
--- OUTSIDE RECORDS SUMMARY | 2020-09-27 15:28 | CCD | Continuity of Care Document ---
Author Nichole King DEPORTATION OFFICER Organization Unknown Address [address] [place] [address] Phone [phone] Care Team Providers Care Edge Stitcher Name Role Phone [facility] AUTM [phone] Hoda Drake M.D. AUTM [phone] [facility] - Physical Therapist AUTM [phone] Jass Hoang JR., M.D. AUTM Dr. Prateek Martinez AUTM [phone] [facility] - Orthopaedic Surgery AUTM [phone] Partha Marie DO AUTM [phone] [facility]astro[facility]ology AUTM [phone] [facility] - Orthopaedic Surgery AUTM [phone] Problems Active Problems Provider Date Disorder of thyroid gland Fany Angeles RPA-C Onset: Gastroesophageal reflux disease Fany Angeles RPA-C Ons et: 04/12/2011 Hyperlipidemia Fany Angeles RPA-C Onset: 04/12/20 11 Anxiety state Fany Angeles RPA-C Onset: 04/12/20 11 Migraine without aura, not refractory Fany Angeles RPA -C Onset: 04/12/2011 Tobacco user Fany Angeles RPA-C Onset: 04/12/20 11 Morbid obesity Marcial Steele M.D. Onset: 2011 Social History Type Date Description Comments Sex Unknown Tobacco Use Start: Unknown Never Used Smokeless Tobacco ETOH Use Rarely consumes alcohol Tobacco Use Start: 09/10/91 Patient is a current smoker, smo kes every day 1/2 ppd Recreational Drug Use Never Used Drugs Smoking Status Reviewed: 07/28/20 Patient is a current smoker, smokes every day 1/2 ppd Exercise Type/Frequency exercises rarely Seat Belt/Car Seat Always uses seat belt Guns in Home No Smoke Alarms Yes Smoke Alarms Carbon Monoxide Detector: Yes Allergies, Adverse Reactions, Alerts Active Allergies Reaction Severity Comments Date Morphine anaphalatic 03/31/2010 Meclizine oral edema 03/31/2010 Medications Active Medications SIG Qnty Indications Ordering Provide r Date Medrol 4mg TBPK medrol dose pack per package instructions 21units M54.17 Shayla Jeronimo FNP 2019 Diclofenac Sodium 1% Gel apply 2gm to thumbs qid prn 100gm M15.0 Shayla Jeronimo FNP 07/28/2020 Eq Allergy Relief (Cetirizine) 10mg Tablets Take 1 tablet by mouth once daily 90tabs Maxine Winn M.D. 04/08/2020 Sucralfate 1gm Tablets 1 tab by mouth four times a day, 1 hour before meals and at bedtime, as needed 30tabs Maxine Fermin M.D. 09/05/2019 Sertraline HCL 50mg Tablets 1 tab by mouth every morning 1/2 tab in evening 90tabs F43.23 Maxine Fermin M.D. 09/08/2016 Atorvastatin Calcium 40mg Tablets Take 1 tablet by mouth once daily 90tabs Maxine Fermin M .D. 02/15/2015 Maxalt 10mg Tablets on by mouth at onset of headache 12tabs G43.009 Maxine Fermin M.D. [address] take 1 capsule by mouth once daily for heartburn 90caps Orlin Jeronimo FNP Gabapentin 100mg Capsules take 1 capsules by mouth twice daily Unknown Famotidine 40mg Tablets take one tablet by mouth every evening Unknown History Medications Medrol 4mg TBPK medrol dose pack per package instructions 21units M54.17 Shayla Jeronimo FNP 2019 - 07/28/2020 Immunizations CPT Code Status Date Vaccine Lot # [id number] Given 03/02/2016 Boostrix (Tdap) Tetnus, Diphtheria Toxoids & Acellular Pertussis [id number] Vital Signs Date Vital Result Comment 07/28/2020 3:30pm BP Systolic 123 mmHg BP Diastolic 73 mmHg Heart Rate 61 /min Body Temperature 96.8 F Respiratory Rate 16 /min Height 63.5 inches 5'3.50" Weight 242.50 lb O2 % BldC Oximetry 99 % Peak Expiratory Flow Rate 349 Estimated Peak Flow Rate Supply Body Weight 115 lb BMI (Body Mass Index) 42.3 kg/m2 04/30/2020 12:22pm BP Systolic 97 mmHg BP Diastolic 77 mmHg Heart Rate 64 /min Body Temperature 97.8 F Respiratory Rate 18 /min Height 63.5 inches 5'3.50" Weight 239.38 lb O2 % BldC Oximetry 98 % Peak Expiratory Flow Rate 349 Estimated Peak Flow Rate Supply Body Weight 115 lb BMI (Body Mass Index) 41.7 kg/m2 Results Test Acquired Date Facility Test Result H/L Range Note Ua Routine 04/28/2020 [place] [address] [phone] Appearance, Urine CLOUDY High Clear Color, Urine LASHA Normal Yellow PH,Urine 5.0 units Normal 5.0-9.0 Specific [place]wood Urine Auto 1.028 Normal 1.002-1.035 Protein, Urine Auto 1+ mg/dL High Negative Glucose, Urine (Ua) Auto NEGATIVE mg/dL Normal Negative Ketone, Urine Auto NEGATIVE mg/dL Normal Negative Urobilinogen, Urine Auto 2.0 mg/dL High 0.0-2.0 Bilirubin, Urine Auto 1+ High Negative Nitrite, Urine Auto NEGATIVE Normal Negative Leukocyte Esterase, Urine Auto NEGATIVE Normal Negative Blood, Urine Blood NEGATIVE Normal Negative WBC, Urine Auto 6 /HPF High 0-3 RBC, Urine Auto 1 /HPF Normal 0-3 Bacteria, Urine Auto 1+ High Negative Squamous Epithelial Cell Ur AU 10 /HPF Normal 0-6 Mucus, Urine MODERATE Normal Negative Hyaline Cast, Urine Auto 0 /LPF Normal 0-1 CBC With Differential 04/28/2020 [place] [address] [phone] White Blood Count 7.1 10 Normal 4.0-10.0 Red Blood Count 3.86 10 Low 4.00-5.40 Hemoglobin 12.1 g/dL Normal 12.0-15.5 Hematocrit 36.7 % Normal 36.0-47.0 Mean Corpuscular Volume 95.1 fl Normal 80.0-96.0 Mean Corpuscular Hemoglobin 31.3 pg Normal 27.0-33.0 Mean Corpuscular HGB Conc 33.0 g/dL Normal 32.0-36.5 Red Cell Distribution Width 13.2 % Normal 11.5-14.5 Platelet Count, Automated 154 10 Normal 150-450 Neutrophils % 48.5 % Normal 36.0-66.0 Lymph % 42.5 % Normal 24.0-44.0 Oceana % 6.9 % High 0.0-5.0 Eos % 1.1 % Normal 0.0-3.0 Baso % 0.6 % Normal 0.0-1.0 Immature Granulocyte % 0.4 % Normal 0-3.0 Nucleated Red Blood Cell % 0.0 % Normal 0-0 Neutrophils # 3.5 10 Normal 1.5-8.5 Lymph # 3.0 10 Normal 1.5-5.0 Oceana # 0.5 10 Normal 0.0-0.8 Eos # 0.1 10 Normal 0.0-0.5 Baso # 0.0 10 Normal 0.0-0.2 Liver Profile 04/28/2020 [place] [address] [phone] Ast/Sgot 12 U/L Normal 7-37 Alt/SGPT 16 U/L Normal 12-78 Alkaline Phosphatase 56 U/L Normal 45-117 Bilirubin,Total 0.5 mg/dL Normal 0.2-1.0 Bilirubin,Direct < 0.1 mg/dL Normal 0.0-0.2 Total Protein 6.7 GM/DL Normal 6.4-8.2 Albumin 3.6 GM/DL Normal 3.2-5.2 Albumin/Globulin Ratio 1.2 Normal 1.2-2.2 Basic Metabolic Profile 04/28/2020 [place] [address] [phone] Glucose, Fasting 81 mg/dL Normal 70-100 Blood Urea Nitrogen 16 mg/dL Normal 7-18 Creatinine For GFR 0.89 mg/dL Normal 0.55-1.30 Glomerular Filtration Rate > 60.0 Normal >51 1 Sodium Level 141 mEq/L Normal 136-145 Potassium Serum 4.2 mEq/L Normal 3.5-5.1 Chloride Level 110 mEq/L High 98-107 Carbon Dioxide Level 28 mEq/L Normal 21-32 Anion Gap 3 mEq/L Low 8-16 Calcium Level 9.0 mg/dL Normal 8.5-10.1 Laboratory test finding 04/28/2020 [place] [address] [phone] Lipase 70 U/L Low 73-393 Liver Profile 04/28/2020 Patient Service [place] [id number] [phone] Ast/Sgot 12 U/L Normal 7-37 Alt/SGPT 16 U/L Normal 12-78 Alkaline Phosphatase 56 U/L Normal 45-117 Bilirubin,Total 0.5 mg/dL Significant change down 0.2-1.0 Bilirubin,Direct < 0.1 mg/dL Normal 0.0-0.2 Total Protein 6.7 GM/DL Normal 6.4-8.2 Albumin 3.6 GM/DL Normal 3.2-5.2 Albumin/Globulin Ratio 1.2 Normal 1.2-2.2 Basic Metabolic Profile 04/28/2020 [place] [address] [phone] Glucose, Fasting 81 mg/dL Normal 70-100 Blood Urea Nitrogen 16 mg/dL Normal 7-18 Creatinine For GFR 0.89 mg/dL Normal 0.55-1.30 Glomerular Filtration Rate > 60.0 Normal >51 2 Sodium Level 141 mEq/L Normal 136-145 Potassium Serum 4.2 mEq/L Normal 3.5-5.1 Chloride Level 110 mEq/L High 98-107 Carbon Dioxide Level 28 mEq/L Normal 21-32 Anion Gap 3 mEq/L Low 8-16 Calcium Level 9.0 mg/dL Normal 8.5-10.1 Laboratory test finding 04/28/2020 Patient Service [place] [id number] [phone] Lipase 70 U/L Low 73-393 Occult Blood 02/26/[address] [facility] [place] [place] [address] [phone] Occult Blood OCCULT BLOOD 1 <SEE NOTE> Normal 3 CBC With Differential 02/25/2020 [facility] [phone] White Blood Count 8.2 10 Normal 4.0-10.0 Red Blood Count 3.95 10 Low 4.00-5.40 Hemoglobin 12.2 g/dL Normal 12.0-15.5 Hematocrit 37.7 % Normal 36.0-47.0 Mean Corpuscular Volume 95.4 fl Normal 80.0-96.0 Mean Corpuscular Hemoglobin 30.9 pg Normal 27.0-33.0 Mean Corpuscular HGB Conc 32.4 g/dL Normal 32.0-36.5 Red Cell Distribution Width 13.2 % Normal 11.5-14.5 Platelet Count, Automated 156 10 Normal 150-450 Neutrophils % 49.3 % Normal 36.0-66.0 Lymph % 42.1 % Normal 24.0-44.0 Oceana % 6.7 % High 0.0-5.0 Eos % 1.2 % Normal 0.0-3.0 Baso % 0.5 % Normal 0.0-1.0 Immature Granulocyte % 0.2 % Normal 0-3.0 Nucleated Red Blood Cell % 0.0 % Normal 0-0 Neutrophils # 4.0 10 Normal 1.5-8.5 Lymph # 3.5 10 Normal 1.5-5.0 Oceana # 0.6 10 Normal 0.0-0.8 Eos # 0.1 10 Normal 0.0-0.5 Baso # 0.0 10 Normal 0.0-0.2 Comprehensive Metabolic Profil 02/25/2020 [facility] [phone] Glucose, Fasting 103 mg/dL High 70-100 Blood Urea Nitrogen 14 mg/dL Normal 7-18 Creatinine For GFR 0.73 mg/dL Normal 0.55-1.30 Glomerular Filtration Rate > 60.0 Normal >51 4 Sodium Level 140 mEq/L Normal 136-145 Potassium Serum 3.8 mEq/L Normal 3.5-5.1 Chloride Level 109 mEq/L High 98-107 Carbon Dioxide Level 28 mEq/L Normal 21-32 Anion Gap 3 mEq/L Low 8-16 Calcium Level 9.0 mg/dL Normal 8.5-10.1 Ast/Sgot 10 U/L Normal 7-37 Alt/SGPT 18 U/L Normal 12-78 Alkaline Phosphatase 61 U/L Normal 45-117 Bilirubin,Total 0.4 mg/dL Normal 0.2-1.0 Total Protein 6.5 GM/DL Normal 6.4-8.2 Albumin 3.6 GM/DL Normal 3.2-5.2 Albumin/Globulin Ratio 1.2 Normal 1.2-2.2 1 Units are mL/min/1.73 m2 Chronic Kidney Disease Staging per NKF: Stage I & II GFR >=60 Normal to Mildly Decreased Stage III GFR 30-59 Moderately Decreased Stage IV GFR 15-29 Severely Decreased Stage V GFR <15 Very Little GFR Left ESRD GFR <15 on METAL FURNITURE REPAIRER 2 Units are mL/min/1.73 m2 Chronic Kidney Disease Staging per NKF: Stage I & II GFR >=60 Normal to Mildly Decreased Stage III GFR 30-59 Moderately Decreased Stage IV GFR 15-29 Severely Decreased Stage V GFR <15 Very Little GFR Left ESRD GFR <15 on METAL FURNITURE REPAIRER 3 OCCULT BLOOD 1 NEGATIVE 4 Units are mL/min/1.73 m2 Chronic Kidney Disease Staging per NKF: Stage I & II GFR >=60 Normal to Mildly Decreased Stage III GFR 30-59 Moderately Decreased Stage IV GFR 15-29 Severely Decreased Stage V GFR <15 Very Little GFR Left ESRD GFR <15 on METAL FURNITURE REPAIRER Procedures Date Code Description Status 02/26/2020 [id number] Mammogram Completed 09/16/2015 [id number] Mammogram Completed 01/23/2014 [id number] Mammogram Completed Medical Devices Description No Information Available Encounters Type Date Location Provider Dx Diagnosis Office Visit 07/28/2020 4:00p Main Office Shayla Jeronimo FNP M54.1 7 Radiculopathy, lumbosacral region M15.0 Primary generalized (osteo)a rthritis Office Visit 04/30/2020 12:15p Main Office Shayla Jeronimo FNP M54.1 7 Radiculopathy, lumbosacral region K59.00 Constipation, unspecified Office Visit 02/24/2020 2:00p Main Office Shayla Jeronimo FNP K62.5 Hemorrhage of anus and rectum S63.654D Sprain of MCP joint of right ring finger, subs Assessments Date Code Description Provider 07/28/2020 M54.17 Radiculopathy, lumbosacral regio n Shayla Jeronimo, SARAH 07/28/2020 M15.0 Primary generalized (osteo)arthr itis Shayla Jeronimo, DEPORTATION OFFICER 04/30/2020 M54.17 Radiculopathy, lumbosacral regio n Shayla Jeronimo, DEPORTATION OFFICER 04/30/2020 K59.00 Constipation, unspecified [place] Shayla perales, DEPORTATION OFFICER 02/24/2020 K62.5 Hemorrhage of anus and rectum Pl Shayla pabon FNP 02/24/2020 S63.654D Sprain of metacarpop halangeal joint of right ring finger, subsequent encounter Shayla Jeronimo FNP Plan of Treatment Future Appointment(s):* 08/11/2020 8:30 am - Shayla Jeronimo FNP at Main Office 07/28/2020 - Shayla Jeronimo FNP* M54.17 Radiculopathy, lumbosacral region* New Medication:* Medrol 4 mg - medrol dose pack per package instructions * New Orders:* PT Order, Scheduled: 07/28/20 * M15.0 Primary generalized (osteo)arthritis* New Medication:* Diclofenac Sodium 1 % - apply 2gm to thumbs qid prn Functional Status Functional Condition Comment Date Status Glasses Active Independent with all IADL's Acti ve Independent with all ADL's Activ e Partial upper dentures Active Mental Status Mental Condition Comment Date Status None Active Referrals Refer to Reason for Referral Status Appt Date [facility] right finger pain Closed 03/24/2020 [address] [place] [address] [phone] [facility] Pt due for 5 yr repeat colon oscopy in March is currently experiencing rectal bleeding, please also perform and endoscopy as well for Gerd. Scheduled 03/02/2020 [address] [place] [address] [phone] Natalya ANGUIANO M.D., Jass Sims. pt is due for 5 year colonos copy in march, pt is c/o of recal bleeding, please do colonoscopy and endoscopy. Patient Declined [address] [facility] [address] [place] [address] [phone]
--- OUTSIDE RECORDS SUMMARY | 2020-09-27 15:28 | CCD | Continuity of Care Document ---
Author Author Nichole ALEMAN [place] Organization Unknown Address [address] [place] [address] Phone [phone] Care Team Providers Care Paramedic Supervisor Name Role Phone Kameron Oconnor MD AUTM [phone] Natasha Angeles RPA AUTM [phone] Shahzad [employer] AUTM [phone] Problems Description No Information Available Social History Type Date Description Comments Sex Unknown Tobacco Use Start: Unknown Current Cigarette Smoker 1 Pack Daily ETOH Use Rarely consumes alcohol Tobacco Use Start: Unknown Patient is a current smoker, smo kes every day Smoking Status Reviewed: 09/24/20 Patient is a current smoker, smokes every day Allergies, Adverse Reactions, Alerts Active Allergies Reaction Severity Comments Date Meclizine HCL 06/12/2008 Morphine Sulfate 06/12/2008 Medications Active Medications SIG Qnty Indications Ordering Provide r Date Maxalt prn Unknown Atorvastatin Calcium Unknown Cetirizine HCL 10mg Tablets 1 by mouth every day Unknown Sertraline HCL 50mg Tablets Unknown Ibuprofen 200 200mg Tablets Unknown Dexilant 30mg Capsules DR Unknown Famotidine Unknown [place] Unknown Immunizations CPT Code Status Date Vaccine Lot # [id number] Given 01/21/2020 Tdap/Tetanus, Di phth Toxoids/Acellular Pertussis Vac 7Yr Or > [id number] Vital Signs Date Vital Result Comment 09/24/2020 11:31am BP Systolic 85 mmHg BP Diastolic 58 mmHg Heart Rate 59 /min Respiratory Rate 16 /min O2 % BldC Oximetry 97 % Body Temperature 98.0 F Weight 242.00 lb Pain Level 4 01/21/2020 2:46pm BP Systolic 98 mmHg BP Diastolic 74 mmHg Heart Rate 74 /min Respiratory Rate 12 /min O2 % BldC Oximetry 95 % Body Temperature 98.2 F Weight 230.00 lb Height 64 inches 5'4" BMI (Body Mass Index) 39.5 kg/m2 Pain Level 4 Results Description No Information Available Procedures Description No Information Available Medical Devices Description No Information Available Encounters Type Date Location Provider Dx Diagnosis Office Visit 09/24/2020 11:50a Main Office SHERRIE Victoria R11 .0 Nausea Z20.828 Contact w and exposure to ot h viral communicable diseases Assessments Date Code Description Provider 09/24/2020 R11.0 Nausea SHERRIE Hope 09/24/2020 Z20.828 Contact with and (singh spected) exposure to other viral communicable diseases SHERRIE Victoria Plan of Treatment No Information Available Functional Status Description No Information Available Mental Status Description No Information Available Referrals Description No Information Available
--- OUTSIDE RECORDS SUMMARY | 2020-09-27 15:28 | CCD ---
Continuity of Care Document (CCD) Created on: 09/24/2020 MillyNichole agarwal External Reference #: [id number] : [id number] Sex: Female Author Author Nichole ALEMAN [place] Organization Unknown Address [address] [place] [address] Phone [phone] Care Team Providers Care Fur Dressing Supervisor Name Role Phone Kameron Oconnor MD AUTM [phone] Natasha Angeles RPA AUTM [phone] Shahzad [employer] AUTM [phone] Problems Description No Information Available Social History [...] CPT Code Status Date Vaccine Lot # [id number] Given 01/21/2020 Tdap/Tetanus, Di phth Toxoids/Acellular Pertussis Vac 7Yr Or > [id number] Vital Signs Date Vital Result Comment 09/24/2020 [...]
--- OUTSIDE RECORDS SUMMARY | 2020-09-27 15:28 | CCD | Continuity of Care Document ---
Author Nichole King NEONATAL INTENSIVE CARE NURSE Organization Unknown Address [address] [place] [address] Phone [phone] Care Team Providers Care Video Recorder Mechanic Name Role Phone [facility] [phone] Hoda Drake M.D. AUTM [phone] [facility] - Physical Therapist AUTM [phone] Jass Hoang JR., M.D. AUTM Dr. Prateek Martinez AUTM [phone] [place] [employer] Pro[employer] - Orthopaedic Surgery AUTM [phone] Partha Marie DO AUTM [phone] [facility] Gastroenterology AUTM [phone] [facility] - Orthopaedic Surgery AUTM [phone] Problems Active Problems Provider Date Disorder of [...] Use Never Used Drugs Smoking Status Reviewed: 08/11/20 Patient is a current smoker, smokes every [...] 07/28/2020 Eq Allergy Relief (Cetirizine) 10mg Tablets take 1 tablet by mouth once daily 90tabs Shayla Sanchez FNP 04/08/2020 Sucralfate 1gm Tablets 1 tab by mouth four times a day, 1 hour before meals and at bedtime, as needed 30tabs Maxine Fermin M.D. 09/05/2019 Sertraline HCL 50mg Tablets 1 tab by mouth every morning 1/2 tab in evening 90tabs F43.23 Shayla Jeronimo FNP 09/08/2016 Atorvastatin Calcium 40mg Tablets Take 1 tablet by mouth once daily 90tabs Maxine Fermin M .D. 02/15/2015 Maxalt 10mg Tablets on by mouth at onset of headache 12tabs G43.009 Shayla Jeronimo FNP Dexilant 60mg Capsules DR take 1 capsule [...] CPT Code Status Date Vaccine Lot # [id number] Given 03/02/2016 Boostrix (Tdap) Tetnus, Diphtheria Toxoids & Acellular Pertussis [id number] Vital Signs Date Vital Result Comment 08/11/2020 8:28am BP Systolic 118 mmHg BP Diastolic 75 mmHg Heart Rate 70 /min Body Temperature 97.7 F Respiratory Rate 20 /min Height 63.5 inches 5'3.50" Weight 243.12 lb O2 % BldC Oximetry 98 % Peak Expiratory Flow Rate 347 Estimated Peak Flow Rate [place] Body Weight 115 lb BMI (Body Mass Index) 42.4 kg/m2 07/28/2020 3:30pm BP Systolic 123 mmHg BP Diastolic 73 mmHg Heart Rate 61 /min Body Temperature 96.8 F Respiratory Rate 16 /min Height 63.5 inches 5'3.50" Weight 242.50 lb O2 % BldC Oximetry 99 % Peak Expiratory Flow Rate 349 Estimated Peak Flow Rate [place] Body Weight 115 lb BMI (Body Mass Index) 42.3 kg/m2 Results Test Acquired Date Facility Test Result H/L Range Note Ua Routine 04/28/2020 [facility] [place] [address] [phone] Appearance, Urine CLOUDY High Clear Color, Urine LASHA Normal Yellow PH,Urine 5.0 units Normal 5.0-9.0 Specific [place] Urine Auto 1.028 Normal 1.002-1.035 Protein, Urine [...] 0-1 CBC With Differential 04/28/2020 Patient Service Ce nter [facility] [place] [address] [phone] White Blood Count 7.1 10 Normal 4.0-10.0 [...] 36.0-66.0 Lymph % 42.5 % Normal 24.0-44.0 [place] % 6.9 % High 0.0-5.0 Eos % 1.1 % Normal 0.0-3.0 Baso % 0.6 % Normal 0.0-1.0 Immature Granulocyte % 0.4 % Normal 0-3.0 Nucleated Red Blood Cell % 0.0 % Normal 0-0 Neutrophils # 3.5 10 Normal 1.5-8.5 Lymph # 3.0 10 Normal 1.5-5.0 [place] # 0.5 10 Normal 0.0-0.8 Eos # 0.1 10 Normal 0.0-0.5 Baso # 0.0 10 Normal 0.0-0.2 Liver Profile 04/28/2020 [place] [address] [phone] Ast/Sgot 12 U/L Normal 7-37 Alt/SGPT 16 U/L Normal 12-78 Alkaline Phosphatase 56 U/L Normal 45-117 Bilirubin,Total 0.5 mg/dL Normal 0.2-1.0 Bilirubin,Direct < 0.1 mg/dL Normal 0.0-0.2 Total Protein 6.7 GM/DL Normal 6.4-8.2 Albumin 3.6 GM/DL Normal 3.2-5.2 Albumin/Globulin Ratio 1.2 Normal 1.2-2.2 Basic Metabolic Profile 04/28/2020 [place] [address] [phone] Glucose, Fasting 81 mg/dL Normal 70-100 Blood [...] 8.5-10.1 Laboratory test finding 04/28/2020 Patient Service [place] [id number] [phone] Lipase 70 U/L Low 73-393 Liver Profile 04/28/2020 [place] [address] [phone] Ast/Sgot 12 U/L Normal 7-37 Alt/SGPT 16 U/L Normal 12-78 Alkaline Phosphatase 56 U/L Normal 45-117 Bilirubin,Total 0.5 mg/dL Significant change down 0.2-1.0 Bilirubin,Direct < 0.1 mg/dL Normal 0.0-0.2 Total Protein 6.7 GM/DL Normal 6.4-8.2 Albumin 3.6 GM/DL Normal 3.2-5.2 Albumin/Globulin Ratio 1.2 Normal 1.2-2.2 Basic Metabolic Profile 04/28/2020 [place] [address] [phone] Glucose, Fasting 81 mg/dL Normal 70-100 Blood [...] 8.5-10.1 Laboratory test finding 04/28/2020 [place] [address] [phone] Lipase 70 U/L Low 73-393 Occult Blood 02/26/[address] [facility] [place] [address] [phone] Occult Blood OCCULT BLOOD 1 <SEE NOTE> Normal 3 CBC With Differential 02/25/2020 [facility] [phone] White Blood Count 8.2 10 Normal 4.0-10.0 [...] 36.0-66.0 Lymph % 42.1 % Normal 24.0-44.0 [place] % 6.7 % High 0.0-5.0 Eos % 1.2 % Normal 0.0-3.0 Baso % 0.5 % Normal 0.0-1.0 Immature Granulocyte % 0.2 % Normal 0-3.0 Nucleated Red Blood Cell % 0.0 % Normal 0-0 Neutrophils # 4.0 10 Normal 1.5-8.5 Lymph # 3.5 10 Normal 1.5-5.0 [place] # 0.6 10 Normal 0.0-0.8 Eos # 0.1 10 Normal 0.0-0.5 Baso # 0.0 10 Normal 0.0-0.2 Comprehensive Metabolic Profil 02/25/2020 [facility] [phone] Glucose, Fasting 103 mg/dL High 70-100 Blood [...] Little GFR Left ESRD GFR <15 on ENVELOPE SEALING MACHINE OPERATOR 2 Units are mL/min/1.73 m2 Chronic Kidney Disease Staging per NKF: Stage I & II GFR >=60 Normal to Mildly Decreased Stage III GFR 30-59 Moderately Decreased Stage IV GFR 15-29 Severely Decreased Stage V GFR <15 Very Little GFR Left ESRD GFR <15 on ENVELOPE SEALING MACHINE OPERATOR 3 OCCULT BLOOD 1 NEGATIVE 4 Units are mL/min/1.73 m2 Chronic Kidney Disease Staging per NKF: Stage I & II GFR >=60 Normal to Mildly Decreased Stage III GFR 30-59 Moderately Decreased Stage IV GFR 15-29 Severely Decreased Stage V GFR <15 Very Little GFR Left ESRD GFR <15 on ENVELOPE SEALING MACHINE OPERATOR Procedures Date Code Description Status 02/26/2020 [id number] Mammogram Completed 09/16/2015 [id number] Mammogram Completed 01/23/2014 [id number] Mammogram Completed Medical Devices Description No Information Available Encounters Type Date Location Provider Dx Diagnosis Office Visit 08/11/2020 8:30a Main Office Shayla Jeronimo FNP Z00.0 0 Encntr for general adult medical exam w/o abnormal findings M15.0 Primary generalized (osteo)a rthritis K21.9 Gastro-esophageal reflux dis ease without esophagitis G43.009 Migraine w/o aura, not intra ctable, w/o status migrainosus E78.2 Mixed hyperlipidemia E55.9 Vitamin D deficiency, unspec ified Z11.1 Encounter for screening for respiratory tuberculosis Office Visit 07/28/2020 4:00p Main Office Shayla Jeronimo FNP M54.1 7 Radiculopathy, lumbosacral region M15.0 Primary generalized (osteo)a rthritis Office Visit 04/30/2020 12:15p Main Office Shayla Jeronimo, NEONATAL INTENSIVE CARE NURSE M54.1 7 Radiculopathy, lumbosacral region K59.00 Constipation, unspecified Office Visit 02/24/2020 2:00p Main Office Shayla Jeronimo, NEONATAL INTENSIVE CARE NURSE K62.5 Hemorrhage of anus and rectum S63.654D Sprain of MCP joint of right ring finger, subs Assessments Date Code Description Provider 08/11/2020 Z00.00 Encounter for genera l adult medical examination without abnormal findings Shayla Jeronimo, NEONATAL INTENSIVE CARE NURSE 08/11/2020 M15.0 Primary generalized (osteo)arthr itis Shayla Jeronimo, [facility] 08/11/2020 K21.9 Gastro-esophageal reflux disease without esophagitis Shayla Jeronimo, [facility] 08/11/2020 G43.009 Migraine without aur a, not intractable, without status migrainosus Shayla Jeronimo, [facility] 08/11/2020 E78.2 Mixed hyperlipidemia Yandel Jeronimoly, [facility] 08/11/2020 E55.9 Vitamin D deficiency, unspecifie d Shayla Jeronimo, [facility] 08/11/2020 Z11.1 Encounter for screening for resp iratory tuberculosis Shayla Jeronimo, [facility] 07/28/2020 M54.17 Radiculopathy, lumbosacral regio n Shayla Jeronimo, [facility] 07/28/2020 M15.0 Primary generalized (osteo)arthr itis Shayla Jeronimo, NEONATAL INTENSIVE CARE NURSE 04/30/2020 M54.17 Radiculopathy, lumbosacral regio n Shayla Jeronimo, [facility] 04/30/2020 K59.00 Constipation, unspecified [place] Shayla perales, NEONATAL INTENSIVE CARE NURSE 02/24/2020 K62.5 Hemorrhage of anus and rectum Pl Shayla pabon, NEONATAL INTENSIVE CARE NURSE 02/24/2020 S63.654D Sprain of metacarpop halangeal joint of right ring finger, subsequent encounter Shayla Jeronimo, NEONATAL INTENSIVE CARE NURSE Plan of Treatment Future Appointment(s):* 08/12/2021 8:15 am - Shayla Jeronimo FNP at Main Office 08/11/2020 - Shayla Jeronimo FNP* Z00.00 Encounter for general adult medical examination without abnormal findings* New Labs:* Comprehensive Metabolic Profil, Scheduled: 08/11/20 * Hemoglobin A1c, Scheduled: 08/11/20 * Lipid Panel, Scheduled: 08/11/20 * TSH And T4 Free (Tung), Scheduled: 08/11/20 * Vitamin D 25-Hydroxy, Scheduled: 08/11/20 * Comments:* Health maintenance up to date. Overall doing well. ESTRELLA/PHQ 9/CAGE questionnaire reviewed. Discussed healthy lifestyle choices. BMI out of range. Discussed methods of improving nutrition and increasing exercise. * Follow up:* annually * Recommendations:* BMI is elevated. Work on improving diet, portion control and aim for 30 minutes of moderate intensity exercise at least 5 days a week. * M15.0 Primary generalized (osteo)arthritis* New Labs:* Rheumatoid Factor Quant, Scheduled: 08/11/20 * Comments:* patient reports her twin sister has RA, she would like to be tested as well. * K21.9 Gastro-esophageal reflux disease without esophagitis* Comments:* controlled on current medications * G43.009 Migraine without aura, not intractable, without status migrainosus* Comments:* controlled * E78.2 Mixed hyperlipidemia* Comments:* check lipids * E55.9 Vitamin D deficiency, unspecified * Z11.1 Encounter for screening for respiratory tuberculosis* New Xrays:* Chest, 2 Views, Scheduled: 08/11/20 * Comments:* will get CXR, history of +PPD Functional Status Functional Condition Comment Date Status Glasses Active Independent with all IADL's Acti ve Independent with all ADL's Activ e Complete upper dentures Active Mental Status Mental Condition Comment Date Status None Active Referrals Refer to Reason for Referral Status Appt Date [facility] right finger pain Closed 03/24/2020 [address] [place] [address] [phone] [facility] Pt due for 5 yr repeat colon oscopy in March is currently experiencing rectal bleeding, please also perform and endoscopy as well for Gerd. Scheduled 03/02/2020 [address] [place], [place] [id number] [phone] Natalya ANGUIANO M.D., Jass Sims. pt is due for 5 year colonos copy in march, pt is c/o of recal bleeding, please do colonoscopy and endoscopy. Patient Declined [address] [address] [phone]
--- OUTSIDE RECORDS SUMMARY | 2020-09-27 15:29 | CCD | Continuity of Care Document ---
Author Nichole King HEAD OF PRODUCT Organization Unknown Address [address] [place] [address] Phone [phone] Care Team Providers Care Help Desk Intern Name Role Phone [facility] [phone] Hoda Drake M.D. AUTM [phone] [facility] - Physical Therapist AUTM [phone] Jass Hoang JR., M.D. AUTM Dr. Prateek Martinez AUTM [phone] [place] Driver License Technician - Orthopaedic Surgery AUTM [phone] Partha Marie DO AUTM [phone] [facility] - Gastroenterology AUTM [phone] [facility] - Orthopaedic Surgery AUTM [phone] Problems Active Problems Provider Date Disorder of [...] CPT Code Status Date Vaccine Lot # [id number] Given 03/02/2016 Boostrix (Tdap) Tetnus, Diphtheria Toxoids & Acellular Pertussis [id number] Vital Signs Date Vital Result Comment 07/28/2020 3:30pm BP Systolic 123 mmHg BP Diastolic 73 mmHg Heart Rate 61 /min Body Temperature 96.8 F Respiratory Rate 16 /min Height 63.5 inches 5'3.50" Weight 242.50 lb O2 % BldC Oximetry 99 % Peak Expiratory Flow Rate 349 Estimated Peak Flow Rate [place] Body Weight 115 lb BMI (Body Mass Index) 42.3 kg/m2 04/30/2020 12:22pm BP Systolic 97 mmHg BP Diastolic 77 mmHg Heart Rate 64 /min Body Temperature 97.8 F Respiratory Rate 18 /min Height 63.5 inches 5'3.50" Weight 239.38 lb O2 % BldC Oximetry 98 % Peak Expiratory Flow Rate 349 Estimated Peak Flow Rate [place] Body Weight 115 lb BMI (Body Mass Index) 41.7 kg/m2 Results Test Acquired Date Facility Test Result H/L Range Note Ua Routine 04/28/2020 [place] [address] [phone] Appearance, Urine CLOUDY High Clear Color, Urine LASHA Normal Yellow PH,Urine 5.0 units Normal 5.0-9.0 Specific [place] Urine Auto 1.028 Normal 1.002-1.035 Protein, Urine [...] CBC With Differential 04/28/2020 [place] [address] [phone] White Blood Count 7.1 10 Normal 4.0-10.0 [...] 36.0-66.0 Lymph % 42.5 % Normal 24.0-44.0 [place] % 6.9 % High 0.0-5.0 Eos % 1.1 % Normal 0.0-3.0 Baso % 0.6 % Normal 0.0-1.0 Immature Granulocyte % 0.4 % Normal 0-3.0 Nucleated Red Blood Cell % 0.0 % Normal 0-0 Neutrophils # 3.5 10 Normal 1.5-8.5 Lymph # 3.0 10 Normal 1.5-5.0 [place] # 0.5 10 Normal 0.0-0.8 Eos # 0.1 10 Normal 0.0-0.5 Baso # 0.0 10 Normal 0.0-0.2 Liver Profile 04/28/2020 [place] [address] [phone] Ast/Sgot 12 U/L Normal 7-37 Alt/SGPT 16 U/L Normal 12-78 Alkaline Phosphatase 56 U/L Normal 45-117 Bilirubin,Total 0.5 mg/dL Normal 0.2-1.0 Bilirubin,Direct < 0.1 mg/dL Normal 0.0-0.2 Total Protein 6.7 GM/DL Normal 6.4-8.2 Albumin 3.6 GM/DL Normal 3.2-5.2 Albumin/Globulin Ratio 1.2 Normal 1.2-2.2 Basic Metabolic Profile 04/28/2020 [place] [address] [phone] Glucose, Fasting 81 mg/dL Normal 70-100 Blood [...] 8.5-10.1 Laboratory test finding 04/28/2020 [place] [address] [phone] Lipase 70 U/L Low 73-393 Liver Profile 04/28/2020 Patient Service [place] [id number] [phone] Ast/Sgot 12 U/L Normal 7-37 Alt/SGPT 16 U/L Normal 12-78 Alkaline Phosphatase 56 U/L Normal 45-117 Bilirubin,Total 0.5 mg/dL Significant change down 0.2-1.0 Bilirubin,Direct < 0.1 mg/dL Normal 0.0-0.2 Total Protein 6.7 GM/DL Normal 6.4-8.2 Albumin 3.6 GM/DL Normal 3.2-5.2 Albumin/Globulin Ratio 1.2 Normal 1.2-2.2 Basic Metabolic Profile 04/28/2020 [place] [address] [phone] Glucose, Fasting 81 mg/dL Normal 70-100 Blood [...] 8.5-10.1 Laboratory test finding 04/28/2020 Patient Service [place] [id number] [phone] Lipase 70 U/L Low 73-393 Occult Blood 02/26/[address] [facility] [address] [facility] [place] [address] [phone] Occult Blood OCCULT BLOOD 1 <SEE NOTE> Normal 3 CBC With Differential 02/25/2020 [facility] [phone] White Blood Count 8.2 10 Normal 4.0-10.0 [...] 36.0-66.0 Lymph % 42.1 % Normal 24.0-44.0 [place] % 6.7 % High 0.0-5.0 Eos % 1.2 % Normal 0.0-3.0 Baso % 0.5 % Normal 0.0-1.0 Immature Granulocyte % 0.2 % Normal 0-3.0 Nucleated Red Blood Cell % 0.0 % Normal 0-0 Neutrophils # 4.0 10 Normal 1.5-8.5 Lymph # 3.5 10 Normal 1.5-5.0 [place] # 0.6 10 Normal 0.0-0.8 Eos # 0.1 10 Normal 0.0-0.5 Baso # 0.0 10 Normal 0.0-0.2 Comprehensive Metabolic Profil 02/25/2020 [facility] [phone] Glucose, Fasting 103 mg/dL High 70-100 Blood [...] Little GFR Left ESRD GFR <15 on CERTIFIED REGISTERED LOCKSMITH 2 Units are mL/min/1.73 m2 Chronic Kidney Disease Staging per NKF: Stage I & II GFR >=60 Normal to Mildly Decreased Stage III GFR 30-59 Moderately Decreased Stage IV GFR 15-29 Severely Decreased Stage V GFR <15 Very Little GFR Left ESRD GFR <15 on CERTIFIED REGISTERED LOCKSMITH 3 OCCULT BLOOD 1 NEGATIVE 4 Units are mL/min/1.73 m2 Chronic Kidney Disease Staging per NKF: Stage I & II GFR >=60 Normal to Mildly Decreased Stage III GFR 30-59 Moderately Decreased Stage IV GFR 15-29 Severely Decreased Stage V GFR <15 Very Little GFR Left ESRD GFR <15 on CERTIFIED REGISTERED LOCKSMITH Procedures Date Code Description Status 02/26/2020 [id number] Mammogram Completed 09/16/2015 [id number] Mammogram Completed 01/23/2014 [id number] Mammogram Completed Medical Devices Description No Information Available Encounters Type Date Location Provider Dx Diagnosis Office Visit 04/30/2020 12:15p Main Office Shayla Jeronimo FNP M54.1 7 Radiculopathy, lumbosacral region K59.00 Constipation, unspecified Office Visit 02/24/2020 2:00p Main Office Shayla Jeronimo FNP K62.5 Hemorrhage of anus and rectum S63.654D Sprain of MCP joint of right ring finger, subs Assessments Date Code Description Provider 07/28/2020 M54.17 Radiculopathy, lumbosacral regio n Shayla Jeronimo FNP 07/28/2020 M15.0 Primary generalized (osteo)arthr itis Shayla Jeronimo, SARAH 04/30/2020 M54.17 Radiculopathy, lumbosacral regio n Shayla Jeronimo, SARAH 04/30/2020 K59.00 Constipation, unspecified [place] Shayla perales, SARAH 02/24/2020 K62.5 Hemorrhage of anus and rectum Pl ericakaryShayla perales FNP 02/24/2020 S63.654D Sprain of metacarpop halangeal [...] to Reason for Referral Status Appt Date [facility] right finger pain Closed 03/24/2020 [address] [place] [address] [phone] [facility] Pt due for 5 yr repeat colon oscopy in March is currently experiencing rectal bleeding, please also perform and endoscopy as well for Gerd. Scheduled 03/02/2020 [address] [place] [address] [phone] Natalya ANGUIANO M.D., Jass Sims. pt is due for 5 year colonos copy in march, pt is c/o of recal bleeding, please do colonoscopy and endoscopy. Patient Declined [address] [address] [phone]
--- OUTSIDE RECORDS SUMMARY | 2020-09-27 15:29 | CCD | Continuity of Care Document ---
Author Nichole Solano M.D. Organization Unknown Address [address] [place] [address] Phone [phone] Care Team Providers Care Detention Deputy Name Role Phone [facility] [phone] Hoda Drake M.D. [facility] [phone] [facility] - Physical Therapist [facility] [phone] Jass Hoang JR., M.D. AUTM Dr. Prateek Martinez [facility] [phone] [facility]edic Surgery [facility] [phone] Partha Marie DO AUT[facility] [phone] [facility] Gastroenterology AUTM [phone] [facility] - Orthopaedic Surgery AUTM [phone] Problems Active Problems Provider Date Disorder of [...] Use Never Used Drugs Smoking Status Reviewed: 04/30/20 Patient is a current smoker, smokes every [...] instructions 21units M54.17 Shayla Jeronimo FNP 2019 Eq Allergy Relief (Cetirizine) 10mg Tablets Take [...] daily for heartburn 90caps Orlin Jeronimo FNP Methocarbamol 750mg Tablets take 1 tablet by mouth twice daily Unknown Tramadol HCL 50mg Tablets take 1 tablet by mouth every 6 hours as needed for pain Unknown Zofran 8mg Tablets one tab by mouth every 6 hour as needed for n/v Unknown 000 Gabapentin 100mg Capsules take 1 capsules by mouth twice daily Unknown Immunizations CPT Code Status Date Vaccine Lot # [id number] Given 03/02/2016 Boostrix (Tdap) Tetnus, Diphtheria Toxoids & Acellular Pertussis [id number] Vital Signs Date Vital Result Comment 04/30/2020 12:22pm BP Systolic 97 mmHg BP Diastolic 77 mmHg Heart Rate 64 /min Body Temperature 97.8 F Respiratory Rate 18 /min Height 63.5 inches 5'3.50" Weight 239.38 lb O2 % BldC Oximetry 98 % Peak Expiratory Flow Rate 349 Estimated Peak Flow Rate [place] Body Weight 115 lb BMI (Body Mass Index) 41.7 kg/m2 02/24/2020 2:11pm BP Systolic 95 mmHg BP Diastolic 61 mmHg Heart Rate 81 /min Body Temperature 98.8 F Respiratory Rate 17 /min Height 64.50 inches 5'4.50" Weight 240.50 lb O2 % BldC Oximetry 98 % Peak Expiratory Flow Rate 357 Estimated Peak Flow Rate [place] Body Weight 120 lb BMI (Body Mass Index) 40.6 kg/m2 Results Test Acquired Date Facility Test Result H/L Range Note Ua Routine 04/28/2020 [facility] [place] [address] [phone] Appearance, Urine CLOUDY High Clear Color, Urine LASHA Normal Yellow PH,Urine 5.0 units Normal 5.0-9.0 Specific [place] Urine Auto 1.028 Normal 1.002-1.035 Protein, Urine [...] With Differential 04/28/2020 Patient [facility] [place] [address] [phone] White Blood Count 7.1 10 Normal 4.0-10.0 [...] 36.0-66.0 Lymph % 42.5 % Normal 24.0-44.0 [place] % 6.9 % High 0.0-5.0 Eos % 1.1 % Normal 0.0-3.0 Baso % 0.6 % Normal 0.0-1.0 Immature Granulocyte % 0.4 % Normal 0-3.0 Nucleated Red Blood Cell % 0.0 % Normal 0-0 Neutrophils # 3.5 10 Normal 1.5-8.5 Lymph # 3.0 10 Normal 1.5-5.0 [place] # 0.5 10 Normal 0.0-0.8 Eos # 0.1 10 Normal 0.0-0.5 Baso # 0.0 10 Normal 0.0-0.2 Liver Profile 04/28/2020 [place] [address] [phone] Ast/Sgot 12 U/L Normal 7-37 Alt/SGPT 16 U/L Normal 12-78 Alkaline Phosphatase 56 U/L Normal 45-117 Bilirubin,Total 0.5 mg/dL Normal 0.2-1.0 Bilirubin,Direct < 0.1 mg/dL Normal 0.0-0.2 Total Protein 6.7 GM/DL Normal 6.4-8.2 Albumin 3.6 GM/DL Normal 3.2-5.2 Albumin/Globulin Ratio 1.2 Normal 1.2-2.2 Basic Metabolic Profile 04/28/2020 [place] [address] [phone] Glucose, Fasting 81 mg/dL Normal 70-100 Blood [...] 8.5-10.1 Laboratory test finding 04/28/2020 [place] [address] [phone] Lipase 70 U/L Low 73-393 Liver Profile 04/28/2020 [place] [address] [phone] Ast/Sgot 12 U/L Normal 7-37 Alt/SGPT 16 U/L Normal 12-78 Alkaline Phosphatase 56 U/L Normal 45-117 Bilirubin,Total 0.5 mg/dL Significant change down 0.2-1.0 Bilirubin,Direct < 0.1 mg/dL Normal 0.0-0.2 Total Protein 6.7 GM/DL Normal 6.4-8.2 Albumin 3.6 GM/DL Normal 3.2-5.2 Albumin/Globulin Ratio 1.2 Normal 1.2-2.2 Basic Metabolic Profile 04/28/2020 [place] [address] [phone] Glucose, Fasting 81 mg/dL Normal 70-100 Blood [...] 8.5-10.1 Laboratory test finding 04/28/2020 [place] [address] [phone] Lipase 70 U/L Low 73-393 Occult Blood 02/26/2020 Patient Service [place] [id number] [phone] Occult Blood OCCULT BLOOD 1 <SEE NOTE> Normal 3 CBC With Differential 02/25/2020 [facility] [phone] White Blood Count 8.2 10 Normal 4.0-10.0 [...] 36.0-66.0 Lymph % 42.1 % Normal 24.0-44.0 [place] % 6.7 % High 0.0-5.0 Eos % 1.2 % Normal 0.0-3.0 Baso % 0.5 % Normal 0.0-1.0 Immature Granulocyte % 0.2 % Normal 0-3.0 Nucleated Red Blood Cell % 0.0 % Normal 0-0 Neutrophils # 4.0 10 Normal 1.5-8.5 Lymph # 3.5 10 Normal 1.5-5.0 [place] # 0.6 10 Normal 0.0-0.8 Eos # 0.1 10 Normal 0.0-0.5 Baso # 0.0 10 Normal 0.0-0.2 Comprehensive Metabolic Profil 02/25/2020 [facility] [phone] Glucose, Fasting 103 mg/dL High 70-100 Blood [...] Little GFR Left ESRD GFR <15 on [employer] 2 Units are mL/min/1.73 m2 Chronic Kidney Disease Staging per NKF: Stage I & II GFR >=60 Normal to Mildly Decreased Stage III GFR 30-59 Moderately Decreased Stage IV GFR 15-29 Severely Decreased Stage V GFR <15 Very Little GFR Left ESRD GFR <15 on [employer] 3 OCCULT BLOOD 1 NEGATIVE 4 Units are mL/min/1.73 m2 Chronic Kidney Disease Staging per NKF: Stage I & II GFR >=60 Normal to Mildly Decreased Stage III GFR 30-59 Moderately Decreased Stage IV GFR 15-29 Severely Decreased Stage V GFR <15 Very Little GFR Left ESRD GFR <15 on [employer] Procedures Date Code Description Status 11/08/2018 [id number] Mammogram Completed 09/16/2015 [id number] Mammogram Completed 01/23/2014 [id number] Mammogram Completed Medical Devices Description No Information Available Encounters Type Date Location Provider Dx Diagnosis Office Visit 04/30/2020 12:15p Main Office Shayla Jeronimo FNP M54.1 7 Radiculopathy, lumbosacral region K59.00 Constipation, unspecified Office Visit 02/24/2020 2:00p Main Office Shayla Jeronimo FNP K62.5 Hemorrhage of anus and rectum S63.654D Sprain of MCP joint of right ring finger, subs Assessments Date Code Description Provider 04/30/2020 M54.17 Radiculopathy, lumbosacral regio n Shayla Jeronimo FNP 04/30/2020 K59.00 Constipation, unspecified [place] Shayla perales FNP 02/24/2020 K62.5 Hemorrhage of anus and rectum Pl Shayla pabon FNP 02/24/2020 S63.654D Sprain of metacarpop halangeal joint of right ring finger, subsequent encounter Shayla Jeronimo FNP Plan of Treatment Future Appointment(s):* 08/11/2020 8:30 am - Shayla Jeronimo FNP at Main Office 04/30/2020 - Shayla Jeronimo FNP* M54.17 Radiculopathy, lumbosacral region* New Medication:* Medrol 4 mg - medrol dose pack per package instructions * K59.00 Constipation, unspecified* Comments:* Likely related to having had no solid intake for several days, advised patient to give it a few more days and if no improvement call Dr. Hoang * Recommendations:* Drink plenty of fluids. Functional Status Functional Condition Comment Date Status Glasses Active Independent with all IADL's Acti ve Independent with all ADL's Activ e Partial upper dentures Active Mental Status Mental Condition Comment Date Status None Active Referrals Refer to Reason for Referral Status Appt Date [facility] right finger pain Closed 03/24/2020 [address] [place] [address] [phone] [facility] Pt due for 5 yr repeat colon oscopy in March is currently experiencing rectal bleeding, please also perform and endoscopy as well for Gerd. Scheduled 03/02/2020 [address] [place] [address] [phone] Natalya ANGUIANO M.D., Jass Sims. pt is due for 5 year colonos copy in march, pt is c/o of recal bleeding, please do colonoscopy and endoscopy. Patient Declined [address] [address] [phone]
--- OUTSIDE RECORDS SUMMARY | 2020-09-27 15:30 | CCD ---
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 Name Role Phone ALISON KNOTT MD Unavailable Unavailable ALISON KNOTT MD Unavailable Unavailable ALISON KNOTT MD Unavailable Unavailable ALISON KNOTT MD Unavailable Unavailable ALISON KNOTT MD Unavailable Unavailable ALISON KNOTT MD Unavailable Unavailable ALISON KNOTT MD Unavailable Unavailable ALISON KNOTT MD Unavailable Unavailable ALISON KNOTT MD Unavailable Unavailable ALISON KNOTT MD Unavailable Unavailable ALISON KNOTT MD Unavailable Unavailable ALISON KNOTT MD Unavailable Unavailable ALISON KNOTT MD Unavailable Unavailable ALISON KNOTT MD Unavailable Unavailable ALISON KNOTT MD Unavailable Unavailable ALISON KNOTT MD Unavailable Unavailable ALISON KNOTT MD Unavailable Unavailable ALISON KNOTT MD Unavailable Unavailable ALISON KNOTT MD Unavailable Unavailable ALISON KNOTT MD Unavailable Unavailable ALISON KNOTT MD Unavailable Unavailable ALISON KNOTT MD Unavailable Unavailable ALISON KNOTT MD Unavailable Unavailable ALISON KNOTT MD Unavailable Unavailable ALISON KNOTT MD Unavailable Unavailable ALISON KNOTT MD Unavailable Unavailable ALISON KNOTT MD Unavailable Unavailable ALISON KNOTT MD Unavailable Unavailable ALISON KNOTT MD Unavailable Unavailable ALISON KNOTT MD Unavailable Unavailable ALISON KNOTT MD Unavailable Unavailable ALISON KNOTT MD Unavailable Unavailable ALISON KNOTT MD Unavailable Unavailable ALISON KNOTT MD Unavailable Unavailable ALISON KNOTT MD Unavailable Unavailable ALISON KNOTT MD Unavailable Unavailable ALISON KNOTT MD Unavailable Unavailable ALISON KNOTT MD Unavailable Unavailable ALISON KNOTT MD Unavailable Unavailable ALISON KNOTT MD Unavailable Unavailable ALISON KNOTT MD Unavailable Unavailable ALISON KNOTT MD Unavailable Unavailable ALISON KNOTT MD Unavailable Unavailable ALISON KNOTT MD Unavailable Unavailable ALISON KNOTT MD Unavailable Unavailable ALISON KNOTT MD Unavailable Unavailable ALISON KNOTT MD Unavailable Unavailable ALISON KNOTT MD Unavailable Unavailable ALISON KNOTT MD Unavailable Unavailable ALISON KNOTT MD Unavailable Unavailable ALISON KNOTT MD Unavailable Unavailable ALISON KNOTT MD Unavailable Unavailable ALISON KNOTT MD Unavailable Unavailable BERTO KRUGER MD Unavailable Unavailable BERTO KRUGER MD Unavailable Unavailable KRUGERBERTO MARTINEZ MD Unavailable Unavailable BERTO KRUGER MD Unavailable Unavailable KRUGERBERTO MARTINEZ MD Unavailable Unavailable KRUGERBERTO MARTINEZ MD Unavailable Unavailable KRUGERBERTO MARTINEZ MD Unavailable Unavailable KRUGERBERTO MARTINEZ MD Unavailable Unavailable KRUGERBERTO MARTINEZ MD Unavailable Unavailable KRUGERBERTO MARTINEZ MD Unavailable Unavailable KRUGERBERTO MARTINEZ MD Unavailable Unavailable KRUGERBERTO MARTINEZ MD Unavailable Unavailable KRUGERBERTO MARTINEZ MD Unavailable Unavailable KRUGERBERTO MARTINEZ MD Unavailable Unavailable KRUGERBERTO MARTINEZ MD Unavailable Unavailable KRUGERBERTO MARTINEZ MD Unavailable Unavailable KRUGERBERTO MARTINEZ MD Unavailable Unavailable KRUGERBERTO MARTINEZ MD Unavailable Unavailable KRUGERBERTO MARTINEZ MD Unavailable Unavailable KRUGERBERTO MARTINEZ MD Unavailable Unavailable KRUGERBERTO MARTINEZ MD Unavailable Unavailable KRUGERBERTO MARTINEZ MD Unavailable Unavailable KRUGERBERTO MARTINEZ MD Unavailable Unavailable KRUGERBERTO MD Unavailable Unavailable KRUGERBERTO MARTINEZ MD Unavailable Unavailable KRUGERBERTO MARTINEZ MD Unavailable Unavailable KRUGERBERTO MD Unavailable Unavailable KRUGERBERTO MARTINEZ MD Unavailable Unavailable KRUGERBERTO MARTINEZ MD Unavailable Unavailable KRUGERBERTO MARTINEZ MD Unavailable Unavailable Reji, P León Unavailable Unavailable Cayward, Jeniffer PA Unavailable Unavailable Cayward, Jeniffer PA Unavailable Unavailable Cayward, Jeniffer PA Unavailable Unavailable Cayward, Jeniffer PA Unavailable Unavailable Cayward, Jeniffer PA Unavailable Unavailable Cayward, Jeniffer PA Unavailable Unavailable Cayward, Jeniffer PA Unavailable Unavailable Cayward, Jeniffer PA Unavailable Unavailable Cayward, Jeniffer PA Unavailable Unavailable Cayward, Jeniffer PA Unavailable Unavailable Cayward, Jeniffer PA Unavailable Unavailable Cayward, Jeniffer PA Unavailable Unavailable Cayward, Jeniffer PA Unavailable Unavailable Cayward, Jeniffer PA Unavailable Unavailable Cayward, Jeniffer PA Unavailable Unavailable Cayward, Jeniffer PA Unavailable Unavailable Cayward, Jeniffer PA Unavailable Unavailable Cayward, Jeniffer PA Unavailable Unavailable Cayward, Jeniffer PA Unavailable Unavailable Cayward, Jeniffer PA Unavailable Unavailable Cayward, Jeniffer PA Unavailable Unavailable Cayward, Jeniffer PA Unavailable Unavailable Cayward, Jeniffer PA Unavailable Unavailable Cayward, Jeniffer PA Unavailable Unavailable Cayward, Jeniffer PA Unavailable Unavailable Cayward, Jeniffer PA Unavailable Unavailable Cayward, Jeniffer PA Unavailable Unavailable Cayward, Jeniffer PA Unavailable Unavailable Cayward, Jeniffer PA Unavailable Unavailable Cayward, Jeniffer PA Unavailable Unavailable Cayward, Jeniffer PA Unavailable Unavailable Cayward, Jeniffer PA Unavailable Unavailable Cayward, Jeniffer PA Unavailable Unavailable Cayward, Jeniffer PA Unavailable Unavailable Cayward, Jeniffer PA Unavailable Unavailable Cayward, Jeniffer PA Unavailable Unavailable Cayward, Jeniffer PA Unavailable Unavailable Cayward, Jeniffer PA Unavailable Unavailable Cayward, Jeniffer PA Unavailable Unavailable Cayward, Jeniffer PA Unavailable Unavailable Scordo, M Madhavi PA Unavailable Unavailable Scordo, M Madhavi PA Unavailable Unavailable Scordo, M Madhavi PA Unavailable Unavailable Scordo, M Madhavi PA Unavailable Unavailable Scordo, M Madhavi PA Unavailable Unavailable Scordo, M Madhavi PA Unavailable Unavailable Scordo, M Madhavi PA Unavailable Unavailable Scordo, M Madhavi PA Unavailable Unavailable Scordo, M Madhavi PA Unavailable Unavailable Scordo, M Madhavi PA Unavailable Unavailable Scordo, M Madhavi PA Unavailable Unavailable Scordo, M Madhavi PA Unavailable Unavailable Scordo, M Madhavi PA Unavailable Unavailable Scordo, M Madhavi PA Unavailable Unavailable Scordo, M Madhavi PA Unavailable Unavailable Scordo, M Madhavi PA Unavailable Unavailable Scordo, M Madhavi PA Unavailable Unavailable Scordo, M Madhavi PA Unavailable Unavailable Scordo, M Madhavi PA Unavailable Unavailable Scordo, M Madhavi PA Unavailable Unavailable Scordo, M Madhavi PA Unavailable Unavailable Scordo, M Madhavi PA Unavailable Unavailable Scordo, M Madhavi PA Unavailable Unavailable Scordo, M Madhavi PA Unavailable Unavailable Scordo, M Madhavi PA Unavailable Unavailable Scordo, M Madhavi PA Unavailable Unavailable Scordo, M Madhavi PA Unavailable Unavailable Scordo, M Madhavi PA Unavailable Unavailable Scordo, M Madhavi PA Unavailable Unavailable Scordo, M Madhavi PA Unavailable Unavailable Scordo, M Madhavi PA Unavailable Unavailable Scordo, M Madhavi PA Unavailable Unavailable Scordo, M Madhavi PA Unavailable Unavailable Scordo, M Madhavi PA Unavailable Unavailable Scordo, M Madhavi PA Unavailable Unavailable Scordo, M Madhavi PA Unavailable Unavailable Scordo, M Madhavi PA Unavailable Unavailable Scordo, M Madhavi PA Unavailable Unavailable Scordo, M Madhavi PA Unavailable Unavailable Scordo, M Madhavi PA Unavailable Unavailable Mollison, Franklin Melo MD Unavailable Unavailable Mollison, Franklin Melo MD Unavailable Unavailable Mollison, Franklin Melo MD Unavailable Unavailable Mollison, Franklin Melo MD Unavailable Unavailable Mollison, Franklin Melo MD Unavailable Unavailable Mollison, Franklin Melo MD Unavailable Unavailable MollisonFranklin MD Unavailable Unavailable MollisonFranklin MD Unavailable Unavailable Mollison, Franklin Melo MD Unavailable Unavailable MollisonFranklin MD Unavailable Unavailable Mollison, Franklin Melo MD Unavailable Unavailable Mollison, Franklin Melo MD Unavailable Unavailable MollisonFranklin MD Unavailable Unavailable Mollison, Franklin Melo MD Unavailable Unavailable MollisonFranklin MD Unavailable Unavailable Mollison, Franklin Melo MD Unavailable Unavailable Mollison, Franklin Melo MD Unavailable Unavailable Mollison, Franklin Melo MD Unavailable Unavailable Mollison, Franklin Melo MD Unavailable Unavailable MollisonFranklin MD Unavailable Unavailable MollisonFranklin MD Unavailable Unavailable Pleskach, Shayla VERTICAL PUNCH OPERATOR Unavailable Unavailable Pleskach, Shayla VERTICAL PUNCH OPERATOR Unavailable Unavailable Pleskach, Shayla VERTICAL PUNCH OPERATOR Unavailable Unavailable Pleskach, Shayla VERTICAL PUNCH OPERATOR Unavailable Unavailable Pleskach, Shayla VERTICAL PUNCH OPERATOR Unavailable Unavailable Pleskach, Shayla VERTICAL PUNCH OPERATOR Unavailable Unavailable Pleskach, Shayla VERTICAL PUNCH OPERATOR Unavailable Unavailable Pleskach, Shayla VERTICAL PUNCH OPERATOR Unavailable Unavailable Pleskach, Shayla VERTICAL PUNCH OPERATOR Unavailable Unavailable Pleskach, Shayla VERTICAL PUNCH OPERATOR Unavailable Unavailable Pleskach, Shayla VERTICAL PUNCH OPERATOR Unavailable Unavailable Pleskach, Shayla VERTICAL PUNCH OPERATOR Unavailable Unavailable Pleskach, Shayla VERTICAL PUNCH OPERATOR Unavailable Unavailable Pleskach, Shayla VERTICAL PUNCH OPERATOR Unavailable Unavailable Pleskach, Shayla VERTICAL PUNCH OPERATOR Unavailable Unavailable Pleskach, Shayla VERTICAL PUNCH OPERATOR Unavailable Unavailable Pleskach, Shayla VERTICAL PUNCH OPERATOR Unavailable Unavailable Pleskach, Shayla VERTICAL PUNCH OPERATOR Unavailable Unavailable Pleskach, Shayla VERTICAL PUNCH OPERATOR Unavailable Unavailable Pleskach, Shayla VERTICAL PUNCH OPERATOR Unavailable Unavailable Pleskach, Shayla VERTICAL PUNCH OPERATOR Unavailable Unavailable Pleskach, Shayla VERTICAL PUNCH OPERATOR Unavailable Unavailable Pleskach, Shayla VERTICAL PUNCH OPERATOR Unavailable Unavailable Pleskach, Hsayla VERTICAL PUNCH OPERATOR Unavailable Unavailable Pleskach, Shayla VERTICAL PUNCH OPERATOR Unavailable Unavailable Pleskach, Shayla VERTICAL PUNCH OPERATOR Unavailable Unavailable Pleskach, Shayla VERTICAL PUNCH OPERATOR Unavailable Unavailable Pleskach, Shayla VERTICAL PUNCH OPERATOR Unavailable Unavailable Charlebois, A Elma RPA C Unavailable Unavailable Charlebois, A Elma RPA C Unavailable Unavailable Charlebois, A Elma RPA C Unavailable Unavailable Charlebois, A Elma RPA C Unavailable Unavailable Charlebois, A Elma RPA C Unavailable Unavailable Charlebois, A Elma RPA C Unavailable Unavailable Charlebois, A Elma RPA C Unavailable Unavailable Charlebois, A Elma RPA C Unavailable Unavailable Charlebois, A Elma RPA C Unavailable Unavailable Charlebois, A Elma RPA C Unavailable Unavailable Charlebois, A Elma RPA C Unavailable Unavailable Charlebois, A Elma RPA C Unavailable Unavailable Charlebois, A Elma RPA C Unavailable Unavailable Charlebois, A Elma RPA C Unavailable Unavailable Charlebois, A Elma RPA C Unavailable Unavailable Charlebois, A Elma RPA C Unavailable Unavailable Charlebois, A Elma RPA C Unavailable Unavailable Charlebois, A Elma RPA C Unavailable Unavailable Charlebois, A Elma RPA C Unavailable Unavailable Charlebois, A Elma RPA C Unavailable Unavailable Charlebois, A Elma RPA C Unavailable Unavailable Charlebois, A Elma RPA C Unavailable Unavailable Charlebois, A Elma RPA C Unavailable Unavailable Charlebois, A Elma RPA C Unavailable Unavailable Charlebois, A Elma RPA C Unavailable Unavailable Charlebois, A Elma RPA C Unavailable Unavailable Charlebois, A Elma RPA C Unavailable Unavailable Charlebois, A Elma RPA C Unavailable Unavailable Charlebois, A Elma RPA C Unavailable Unavailable Charlebois, A Elma RPA C Unavailable Unavailable Charlebois, A Elma RPA C Unavailable Unavailable Pleskach, Shayla VERTICAL PUNCH OPERATOR Unavailable Unavailable Pleskach, Shayla VERTICAL PUNCH OPERATOR Unavailable Unavailable Pleskach, Shayla VERTICAL PUNCH OPERATOR Unavailable Unavailable Pleskach, Shayla VERTICAL PUNCH OPERATOR Unavailable Unavailable Pleskach, Shalya VERTICAL PUNCH OPERATOR Unavailable Unavailable Pleskach, Shayla VERTICAL PUNCH OPERATOR Unavailable Unavailable Pleskach, Shayla VERTICAL PUNCH OPERATOR Unavailable Unavailable Pleskach, Shayla VERTICAL PUNCH OPERATOR Unavailable Unavailable Pleskach, Shayla VERTICAL PUNCH OPERATOR Unavailable Unavailable Pleskach, Shayla VERTICAL PUNCH OPERATOR Unavailable Unavailable Pleskach, Shayla VERTICAL PUNCH OPERATOR Unavailable Unavailable Pleskach, Shayla VERTICAL PUNCH OPERATOR Unavailable Unavailable Pleskach, Shayla VERTICAL PUNCH OPERATOR Unavailable Unavailable Pleskach, Shayla VERTICAL PUNCH OPERATOR Unavailable Unavailable Pleskach, Shayla VERTICAL PUNCH OPERATOR Unavailable Unavailable Pleskach, Shayla VERTICAL PUNCH OPERATOR Unavailable Unavailable Pleskach, Shayla VERTICAL PUNCH OPERATOR Unavailable Unavailable Pleskach, Shayla VERTICAL PUNCH OPERATOR Unavailable Unavailable Pleskach, Shayla VERTICAL PUNCH OPERATOR Unavailable Unavailable Pleskach, Shayla VERTICAL PUNCH OPERATOR Unavailable Unavailable Pleskach, Shayla VERTICAL PUNCH OPERATOR Unavailable Unavailable Pleskach, Shayla VERTICAL PUNCH OPERATOR Unavailable Unavailable Pleskach, Shayla VERTICAL PUNCH OPERATOR Unavailable Unavailable Pleskach, Shayla VERTICAL PUNCH OPERATOR Unavailable Unavailable Pleskach, Shayla VERTICAL PUNCH OPERATOR Unavailable Unavailable Pleskach, Shayla VERTICAL PUNCH OPERATOR Unavailable Unavailable Pleskach, Shayla VERTICAL PUNCH OPERATOR Unavailable Unavailable Pleskach, Shayla VERTICAL PUNCH OPERATOR Unavailable Unavailable LETTIERE, A VICENTA PA Unavailable Unavailable LETTIERE, A VICENTA PA Unavailable Unavailable LETTIERE, A VICENTA PA Unavailable Unavailable LETTIERE, A VICENTA PA Unavailable Unavailable LETTIERE, A VICENTA PA Unavailable Unavailable LETTIERE, A VICENTA PA Unavailable Unavailable LETTIERE, A VICENTA PA Unavailable Unavailable LETTIERE, A VICENTA PA Unavailable Unavailable LETTIERE, A VICENTA PA Unavailable Unavailable LETTIERE, A VICENTA PA Unavailable Unavailable LETTIERE, A VICENTA PA Unavailable Unavailable LETTIERE, A VICENTA PA Unavailable Unavailable LETTIERE, A VICENTA PA Unavailable Unavailable LETTIERE, A VICENTA PA Unavailable Unavailable LETTIERE, A VICENTA PA Unavailable Unavailable LETTIERE, A VICENTA PA Unavailable Unavailable LETTIERE, A VICENTA PA Unavailable Unavailable LETTIERE, A VICENTA PA Unavailable Unavailable LETTIERE, A VICENTA PA Unavailable Unavailable LETTIERE, A VICENTA PA Unavailable Unavailable LETTIERE, A VICENTA PA Unavailable Unavailable LETTIERE, A VICENTA PA Unavailable Unavailable LETTIERE, A VICENTA PA Unavailable Unavailable LETTIERE, A VICENTA PA Unavailable Unavailable LETTIERE, A VICENTA PA Unavailable Unavailable LETTIERE, A VICENTA PA Unavailable Unavailable LETTIERE, A VICENTA PA Unavailable Unavailable LETTIERE, A VICENTA PA Unavailable Unavailable Percy ALEMAN Unavailable Unavailable Re-disclosure Warning The records that you are about to access may contain information from federally-assisted alcohol or drug abuse programs. If such information is present, then the following federally mandated warning applies: This information has been disclosed to you from records protected by federal confidentiality rules (42 CFR part 2). The federal rules prohibit you from making any further disclosure of this information unless further disclosure is expressly permitted by the written consent of the person to whom it pertains or as otherwise permitted by 42 CFR part 2. A general authorization for the release of medical or other information is NOT sufficient for this purpose. The Federal rules restrict any use of the information to criminally investigate or prosecute any alcohol or drug abuse patient.The records that you are about to access may contain highly sensitive health information, the redisclosure of which is protected by Article 27-F of the [facility] Public Health law. If you continue you may have access to information: Regarding HIV / AIDS; Provided by facilities licensed or operated by the [facility] Office of Mental Health; or Provided by the [facility] Office for People With Developmental Disabilities. If such information is present, then the following [facility] mandated warning applies: This information has been disclosed to you from confidential records which are protected by state law. State law prohibits you from making any further disclosure of this information without the specific written consent of the person to whom it pertains, or as otherwise permitted by law. Any unauthorized further disclosure in violation of state law may result in a fine or custodial sentence or both. A general authorization for the release of medical or other information is NOT sufficient authorization for further disc losure. Family History Family Member Name Family Member Gender Family Member Status Date o f Status Description Data Source(s) Unknown Unknown Problem [facility] ([facility] Unknown Male Problem [facility] ([facility]) Unknown Female Problem [facility] ([facility], [facility]) Encounters Encounter Providers Location Date Indications Data Source(s ) Outpatient Attender: VICENTA briceño 09/24/2020 10:50:00 AM EST [facility] ([facility]) Outpatient Attender: Shayla Jeronimo [facility] Main Office 08/11/2020 0 7:30:00 AM EST [facility] ([facility] Outpatient Attender: Shayla Jeronimo [facility] Main Office 07/28/2020 0 3:00:00 PM EST [facility] ([facility] Outpatient Referrer: Le[facility]: Shayla [facility]onimo [facility] Main Office 04/30/2020 1 2:15:00 PM EDT [facility] ([facility] Outpatient Referrer: León Mendoza 04/06/2020 12:00:[address] [facility] Outpatient Attender: Kameron Henriquez/Jan/Tremaine/Re indl 03/24/2020 09:30:00 AM EDT [facility] ([facility], ) Outpatient Attender: Elma Henriquez/Jan/Percy cosme/Reinfranki 03/02/2020 09:30:00 AM EDT [facility] ([facility], ) Outpatient Referrer: Shayla Jeronimo [facility] 03/02/2020 05:26:0 0 AM EDT [facility] Outpatient Referrer: Shayla Jeronimo VERTICAL PUNCH OPERATOR 02/27/2020 09:12:0 0 AM EDT [facility] Outpatient Referrer: Shayla Jeronimo VERTICAL PUNCH OPERATOR 02/27/2020 09:10:0 0 AM EDT [facility] Outpatient Referrer: Shayla Jeronimo VERTICAL PUNCH OPERATOR 02/25/2020 11:32:0 0 AM EDT [facility] Outpatient Referrer: Shayla Jeronimo VERTICAL PUNCH OPERATOR 02/25/2020 11:31:0 0 AM EDT [facility] Outpatient Referrer: Shayla Jeronimo VERTICAL PUNCH OPERATOR 02/25/2020 11:27:0 0 AM EDT [facility] Outpatient Referrer: Shayla Jeronimo VERTICAL PUNCH OPERATOR 02/25/2020 11:15:0 0 AM EDT [facility] Outpatient Referrer: Shayla Jeronimo VERTICAL PUNCH OPERATOR 02/25/2020 11:09:0 0 AM EDT [facility] Outpatient Referrer: BERTO KRUGER MD 02/25/2020 11:07:0 0 AM EDT [facility] Outpatient Attender: Dejah KNOTT MDReferrer: Madhavi BALDERAS [id number] 02/25/2020 12:00:00 AM EDT [facility] Outpatient Attender: Shayla Jeronimo VERTICAL PUNCH OPERATOR Main Office 02/24/2020 0 2:00:00 PM EDT [facility] ([facility] Outpatient Referrer: BERTO KRUGER MD 02/04/2020 04:54:0 0 AM EDT [facility] Outpatient Attender: VICENTA Reyesdy Antony talleyy 01/21/2020 02:35:00 PM EDT [facility] ([facility], [facility]) Outpatient Attender: Madhavi BALDERAS Main Office 10/30/2019 08:00:00 AM EST [facility] ([facility] Outpatient 09/24/2019 12:00:00 AM [facility] Outpatient 09/24/2019 12:00:00 AM [facility] Outpatient Attender: Madhavi BALDERAS Main Office 09/11/2019 07:15:00 AM EST [facility] ([facility] Outpatient Attender: Jeniffer Santos: Jeniffer BALDERAS 08/28/2019 12:00:00 AM [facility] Outpatient Referrer: Jeniffer BALDERAS 08/18/2019 1 2:00:00 AM EST Radiculopathy, lumbar region [facility] Radiculopathy, lumbar region Outpatient Attender: Madhavi BALDERAS Main Office 08/14/2019 07:00:00 AM EST [facility] ([facility] Outpatient Attender: Jeniffer Santos: Jeniffer BALDERAS 08/06/2019 12:00:00 AM [facility] Outpatient Referrer: Jeniffer BALDERAS 08/06/2019 12:00:0 0 AM [facility] Outpatient Attender: Dejah KNOTT MDReferrer: Jeniffer Greer [id number] 08/05/2019 12:00:00 AM EST - 08/14/2019 11:01:40 AM EST Radiculopathy, lumbar region [facility] Radiculopathy, lumbar region Outpatient Referrer: Jeniffer BALDERAS 07/16/2019 1 2:00:00 AM EST Radiculopathy, lumbar region [facility] Radiculopathy, lumbar region Immunizations Vaccine Date Status Description Data Source(s) Tdap 01/21/2020 03:15:00 PM EDT completed M [facility]ENT ([facility], [facility]) Medications Medication Brand Name Start Date Product Form Dose Route Admi nistrative Instructions Pharmacy Instructions Status Indications Reaction Description Data Source(s) Diclofenac Sodium 0.01 MG/MG Topical Gel Diclofenac Sodium 07/28/2020 12:00:00 AM EST active [facility] ([facility] Medrol Medrol 07/28/2020 12:00:00 AM EST active [facility] ([facility] Medrol Medrol 04/30/2020 12:00:00 AM EDT completed [facility] ([facility] Sucralfate 1000 MG Oral Tablet [Carafate] Carafate 04/28/2020 1 2:00:00 AM EDT ORAL active [facility] ([facility], ) cetirizine hydrochloride 10 MG Oral Tablet Eq Allergy Relief (Cetirizine) 04/08/2020 12:00:00 AM EDT ORAL active [facility] ([facility] Magnesium Hydroxide 80 MG/ML Oral Suspension Milk Of Magnesi a 03/02/2020 12:00:00 AM EDT ORAL completed [facility] ([facility], ) sodium phosphate 1500 MG Oral Tablet [OsmoPrep] Osmoprep 03/02/2020 12:00:00 AM EDT ORAL active [facility] ([facility], ) dexlansoprazole 60 MG Delayed Release Oral Capsule [Dexilant ] Dexilant 03/02/2020 12:00:00 AM EDT ORAL active [facility] ([facility], ) gabapentin 100 MG Oral Capsule Gabapentin 100 MG Oral Capsule (NEURONTIN) Gabapentin 100 MG Oral Capsule (NEURONTIN) 02/25/2020 12:00:00 AM EDT 100 mg Oral active Lumbar radiculopathy Take 1 ca psule by mouth Two Times Daily [facility] Lumbar radiculopathy Omeprazole 20 MG Delayed Release Oral Capsule Omeprazole 02/16/2020 12:00:00 AM EDT ORAL completed [facility] ([facility], ) Famotidine 40 MG Oral Tablet Famotidine 10/30/2019 12:00:00 AM EST ORAL completed [facility] ([facility] Omeprazole 20 MG Delayed Release Oral Capsule Omeprazole 10/30/2019 12:00:00 AM EST ORAL completed [facility] ([facility] Sucralfate 1000 MG Oral Tablet Sucralfate 09/05/2019 12:00:00 AM EST ORAL active [facility] ([facility] Insurance Providers Payer name Policy type / Coverage type Policy ID Covered republican ID Covered republican's relationship to lindsey Policy [place] [facility] Information [facility]/[id number] 2 [id number] EXCELLUS BCBS B [id number] P [id number] EXCELLUS C [id number] Spouse [id number] SPECIAL FUNDS [facility] [id number] [facility] [id number] [facility] Maintenance Organization ([facility]) [id number] Family Dependent [id number] [facility] Maintenance Organization ([facility]) [id number] Family Dependent [id number] [employer] Commercial [id number] Family Dependent [id number] [facility] ([facility] [id number] Family Dependent [id number] [facility] ([facility] [id number] Family Dependent [id number] [facility] ([facility] [id number] Family Dependent [id number] BS Of [facility] (HMO) [id number] Family Dependent [id number] [facility] (HMO) [id number] Family Dependent [id number] [facility] (HMO) [id number] Family Dependent [id number] [employer] [id number] Family Dependent [id number] [facility] (HMO) [id number] Family Dependent [id number] [facility] (HMO) [id number] Family Dependent [id number] [employer] [id number] Family Dependent [id number] [facility] (HMO) [id number] Family Dependent [id number] [facility] (HMO) [id number] Family Dependent [id number] [facility] (HMO) [id number] Family Dependent [id number] [employer] [id number] Family Dependent [id number] [facility] (HMO) [id number] Family Dependent [id number] BCBS [place] PPO 302/307 [id number] HU2 [id number] BS [facility] (HMO) [id number] Family Dependent [id number] BS [facility] (HMO) [id number] Family Dependent [id number] [facility] (HMO) Family Dependent BS [facility] [employer] Family Dependent EXCELLUS H [id number] Spouse [id number] [employer] BCBS B [id number] P VYS [id number] SPECIAL FUNDS W [id number] Empl [id number] [employer] Family Dependent BS/W/Id#Prefix/W ALL #'S Commercial Family Depende nt [employer] BCBS P UNAVAILABLE P UNAV AILABLE BCBS OF [place] 306/8 P [id number] P [id number] Problems, Conditions, and Diagnoses Code Display Name Description Problem Type Effective Dates Data Source(s) M54.16 Radiculopathy, lumbar region Radiculopathy, lumbar reg ion Diagnosis 08/05/2019 02:11:21 PM [facility] Surgeries/Procedures Procedure Description Date Indications Data Source(s) Endoscopy Upper GI Biopsy 05/18/2020 12:00:00 AM EDT [facility] ([facility], ) Colonoscopy W/ Poly 05/18/2020 12:00:00 AM EDT [facility] ([facility], ) X-Ray Hand Three Views 03/24/2020 12:00:00 AM EDT [facility] ([facility], ) RADEX HAND MINIMUM 3 VIEWS 03/24/2020 12:00:00 AM EDT [facility] ([facility] ) Mammogram 02/26/2020 12:00:00 AM EDT M [facility] ([facility] Order given 05/15/18 Results ID Date Data Source [id number] 09/24/2020 11:50:00 AM EST [facility] ([facility] Name Value Range Interpretation Code Description Data Louann rce(s) Supporting Document(s) Thyroid Stimulating Hormone 2.220 uIU/ML 0.358-3.740 [facility] ([facility] Free T4 0.91 ng/dL 0.76-1.46 [facility] ([facility] ID Date Data Source [id number] 09/24/2020 11:50:00 AM EST [facility] ([facility] Name Value Range Interpretation Code Description Data Louann rce(s) Supporting Document(s) Calcidiol [Mass/volume] in Serum or Plasma 29.4 ng/mL 30.0-100.0 [facility] ([facility] Rheumatoid factor [Units/volume] in Serum or Plasma Laboratory test result [facility] ([facility] ID Date Data Source [id number] 09/24/2020 11:50:00 AM EST [facility] ([facility] Name Value Range Interpretation Code Description Data Louann rce(s) Supporting Document(s) Triglycerides Level 141 mg/dL [facility] ([facility] Cholesterol Level 192 mg/dL [facility] ([facility] HDL Cholesterol 49 mg/dL [facility] ([facility] LDL Cholesterol 115 mg/dL [facility] ([facility] Non-HDL-C 143 mg/dL [facility] Cholesterol Risk Ratio 3.918 [facility] ([facility] ID Date Data Source [id number] 09/24/2020 11:50:00 AM EST [facility] ([facility] Name Value Range Interpretation Code Description Data [facility](s) Supporting Document(s) Hemoglobin A1c/Hemoglobin.total in Blood 5.8 % [facility] ([facility] <content>REFERENCE RANGES:</content><br/ ><content></content>
<content><=5.6% NORMAL</content>
<content>5.7-6.4% SUGGESTS IMPAIRED GLUCOSE METABOLISM/PREDIABETIC</content>
<content>>= 6.5% ABNORMAL</content>
<content></content> Estimated Average Glucose 120 mg/dL 60-110 [facility] ([facility] ID Date Data Source [id number] 09/24/2020 11:50:00 AM EST [facility] ([facility] Name Value Range Interpretation Code Description Data [facility] Supporting Document[facility]) Glucose, Fasting 73 mg/dL 70-100 [facility] ([facility] Creatinine For GFR 0.71 mg/dL 0.55-1.30 [facility] ([facility] Blood Urea Nitrogen 11 mg/dL 7-18 [facility] ([facility] Glomerular Filtration Rate Laboratory test result [facility] ([facility] <content>Units are mL/min/1.73 m2</content>
<content></content>
<content>Chronic Kidney Disease Staging per NKF:</content>
<content></content>
<content>Stage I & II GFR >=60 Normal to Mildly Decreased</content>
<content>Stage III GFR 30- 59 Moderately Decreased</content>
<content>Stage IV GFR 15-29 Severely Decreased</content>
<content>Stage V GFR <15 Very Little GFR Left</content>
<content>ESRD GFR <15 on NEPHROLOGY NURSE</content>
<content></content> Chloride Level 108 meq/L 98-107 [facility] ([facility] Sodium Level 142 meq/L 136-145 [facility] ([facility] Potassium Serum 4.7 meq/L 3.5-5.1 [facility] ([facility] Anion Gap 3 meq/L 8-16 [facility] Carbon Dioxide Level 31 meq/L 21-32 [facility] ([facility] Calcium Level 8.7 mg/dL 8.5-10.1 [facility] ([facility] Ast/Sgot 10 U/L 7-37 [facility] Alt/SGPT 20 U/L 12-78 [facility] Alkaline Phosphatase 63 U/L 45-117 [facility] ([facility] Bilirubin,Total 0.3 mg/dL 0.2-1.0 [facility] ([facility] Total Protein 6.8 GM/DL 6.4-8.2 [facility] ([facility] Albumin 3.9 GM/DL 3.2-5.2 [facility] ([facility] Albumin/Globulin Ratio 1.3 1.2-2.2 [facility] ([facility] ID Date Data Source [id number] 05/18/2020 02:01:00 PM EDT [facility] ([facility], ) Name Value Range Interpretation Code Description Data Louann rce(s) Supporting Document(s) Surgical pathology study Laboratory test result [facility] ([facility], ) <content>FINAL DIAGNOSIS</content>
< content></content>
<content>A - Stomach, antrum, biopsy:</content>
<content>Chronic gastritis with focal activity.</content>
<content>No evidence of H. pylori-like organisms on H&E and</content>
<content>immunohistochemical stain.</content>
<content></content>
<content>B - Colon, ascending polyps, snare polypectomy:</content>
<content>Sessile serrated adenoma/polyp and tubular adenoma.</content>
<content></content>
<content>05/21/2020 - 1243</content>
<content></content>
<content>CLINICAL DIAGNOSIS</content>
<content></content>
<content>Heartburn, rectal bleeding, colon polyp history, and family history of</content>
<content>colon cancer</content>
<content>05/19/2020 - 1450</content>
<content></content>
<content>GROSS DIAGNOSIS</content>
<content></content>
<content>A - Received in formalin labeled "biopsy antrum, gastritis" consists of</content>
<content>five fragments of villalta tissue measuring 0.5 x 0.3 x 0.2 cm in aggregate.</content>
<content>All in one.</content>
<content></content>
<content>B - Received in formalin labeled "snare polyps ascending colon" consists</content>
<content>of multiple fragments of villalta tissue measuring 0.6 x 0.5 x 0.3 cm in</content>
<content>aggregate. All in one.</content>
<content>-SV</content>
<content>05/19/2020 - 1450</content>
<content></content>
<content>Signed CONSTANZA VANESSA MD 05/21/2020 1243</content>
<content></content> ID Date Data Source [id number] 05/13/2020 12:00:00 PM EDT [facility] Name Value Range Interpretation Code Description Data Louann rce(s) Supporting Document(s) SARS coronavirus 2 RNA [facility] This lab was ordered by [facility] and reported by [facility]. ID Date Data Source [id number] 04/28/2020 07:54:00 AM EDT [facility] ([facility] Name Value Range Interpretation Code Description Data Louann rce(s) Supporting Document(s) Appearance, Urine Laboratory test result [facility] ([facility] PH,Urine 5.0 units 5.0-9.0 [facility] Color, Urine Laboratory test result [facility] ([facility] Specific [place] Urine Auto 1.028 1.002-1.035 [facility] ([facility] Protein, Urine Auto Laboratory test result [facility] ([facility] Glucose, Urine (Ua) Auto Laboratory test result [facility] ([facility] Ketone, Urine Auto Laboratory test result [facility] ([facility] Urobilinogen, Urine Auto 2.0 mg/dL 0.0-2.0 [facility] ([facility] Bilirubin, Urine Auto Laboratory test result [facility] ([facility] Nitrite, Urine Auto Laboratory test result [facility] ([facility] Leukocyte Esterase, Urine Auto Laboratory test result [facility] ([facility] WBC, Urine Auto 6 /HPF 0-3 [facility] Blood, Urine Blood Laboratory test result [facility] ([facility] RBC, Urine Auto 1 /HPF 0-3 [facility] ([facility] Squamous Epithelial Cell Ur AU 10 /HPF 0-6 [facility] ([facility] Bacteria, Urine Auto Laboratory test result [facility] ([facility] Mucus, Urine Laboratory test result [facility] ([facility] Hyaline Cast, Urine Auto 0 /LPF 0-1 [facility] T ([facility] ID Date Data Source [id number] 04/28/2020 06:50:00 AM EDT [facility] ([facility] Name Value Range Interpretation Code Description Data Louann rce(s) Supporting Document(s) Lipoprotein lipase [Enzymatic activity/volume] in Serum or Plasm a 70 U/L 73-393 [facility] ([facility] ID Date Data Source [id number] 04/28/2020 06:50:00 AM EDT [facility] ([facility] Name Value Range Interpretation Code Description Data Louann rce(s) Supporting Document(s) Glucose, Fasting 81 mg/dL 70-100 [facility] ([facility] Blood Urea Nitrogen 16 mg/dL 7-18 [facility] Creatinine For GFR 0.89 mg/dL 0.55-1.30 [facility] ([facility] Glomerular Filtration Rate Laboratory test result [facility] ([facility] <content>Units are mL/min/1.73 m2</content>
<content></content>
<content>Chronic Kidney Disease Staging per [facility]:</content>
<content></content>
<content>Stage I & II GFR >=60 Normal to Mildly Decreased</content>
<content>Stage III GFR 30-59 Moderately Decreased</content>
<content>Stage IV GFR 15-29 Severely Decreased</content>
<content>Stage V GFR <15 Very Little GFR Left</content>
<content>ESRD GFR <15 on NEPHROLOGY NURSE</content>
<content></content> Sodium Level 141 meq/L 136-145 [facility] ([facility] Potassium Serum 4.2 meq/L 3.5-5.1 [facility] ([facility] Chloride Level 110 meq/L 98-107 [facility] Carbon Dioxide Level 28 meq/L 21-32 [facility] ([facility] Anion Gap 3 meq/L 8-16 [facility] Calcium Level 9.0 mg/dL 8.5-10.1 [facility] ([facility] ID Date Data Source [id number] 04/28/2020 06:50:00 AM EDT [facility] ([facility] Name Value Range Interpretation Code Description Data Louann rce(s) Supporting Document(s) Ast/Sgot 12 U/L 7-37 [facility] Alkaline Phosphatase 56 U/L 45-117 [facility] ([facility] Alt/SGPT 16 U/L 12-78 [facility] Bilirubin,Total 0.5 mg/dL 0.2-1.0 Significant change down [facility] ([facility] Bilirubin,Direct Laboratory test result 0.0-0.2 [facility] ([facility] Albumin 3.6 GM/DL 3.2-5.2 [facility] Total Protein 6.7 GM/DL 6.4-8.2 [facility] ([facility] Albumin/Globulin Ratio 1.2 1.2-2.2 [facility] ([facility] ID Date Data Source [id number] 04/28/2020 06:50:00 AM EDT [facility] ([facility] Name Value Range Interpretation Code Description Data Louann rce(s) Supporting Document(s) Lipoprotein lipase [Enzymatic activity/volume] in Serum or Plasm a 70 U/L 73-393 [facility] ([facility] ID Date Data Source [id number] 04/28/2020 06:50:00 AM EDT [facility] ([facility] Name Value Range Interpretation Code Description Data Louann rce(s) Supporting Document(s) Blood Urea Nitrogen 16 mg/dL 7-18 [facility] ([facility] Glucose, Fasting 81 mg/dL 70-100 [facility] ([facility] Creatinine For GFR 0.89 mg/dL 0.55-1.30 [facility] ([facility] Glomerular Filtration Rate Laboratory test result [facility] ([facility] <content>Units are mL/min/1.73 m2</content>
<content></content>
<content>Chronic Kidney Disease Staging per NKF:</content>
<content></content>
<content>Stage I & II GFR >=60 Normal to Mildly Decreased</content>
<content>Stage III GFR 30-59 Moderately Decreased</content>
<content>Stage IV GFR 15-29 Severely Decreased</content>
<content>Stage V GFR <15 Very Little GFR Left</content>
<content>ESRD GFR <15 on NEPHROLOGY NURSE</content>
<content></content> Sodium Level 141 meq/L 136-145 [facility] ([facility] Potassium Serum 4.2 meq/L 3.5-5.1 [facility] ([facility] Chloride Level 110 meq/L 98-107 [facility] Anion Gap 3 meq/L 8-16 [facility] Carbon Dioxide Level 28 meq/L 21-32 [facility] ([facility] Calcium Level 9.0 mg/dL 8.5-10.1 [facility] ([facility] ID Date Data Source [id number] 04/28/2020 06:50:00 AM EDT [facility] ([facility] Name Value Range Interpretation Code Description Data Louann rce(s) Supporting Document(s) Ast/Sgot 12 U/L 7-37 [facility] ([facility] Alkaline Phosphatase 56 U/L 45-117 [facility] ([facility] Alt/SGPT 16 U/L 12-78 [facility] Bilirubin,Total 0.5 mg/dL 0.2-1.0 [facility] ([facility] Total Protein 6.7 GM/DL 6.4-8.2 [facility] ([facility] Bilirubin,Direct Laboratory test result 0.0-0.2 [facility] ([facility] Albumin 3.6 GM/DL 3.2-5.2 [facility] Albumin/Globulin Ratio 1.2 1.2-2.2 [facility] ([facility] ID Date Data Source [id number] 04/28/2020 06:50:00 AM EDT [facility] ([facility] Name Value Range Interpretation Code Description Data Louann rce(s) Supporting Document(s) White Blood Count 7.1 10 4.0-10.0 [facility] ([facility] Red Blood Count 3.86 10 4.00-5.40 [facility] ([facility] Hemoglobin 12.1 g/dL 12.0-15.5 [facility] Hematocrit 36.7 % 36.0-47.0 [facility] Mean Corpuscular Volume 95.1 fl 80.0-96.0 M [facility] ([facility] Mean Corpuscular Hemoglobin 31.3 pg 27.0-33.0 [facility] Mean Corpuscular HGB Conc 33.0 g/dL 32.0-36.5 [facility] Platelet Count, Automated 154 10 150-450 [facility] Red Cell Distribution Width 13.2 % 11.5-14.5 [facility] Neutrophils % 48.5 % 36.0-66.0 [facility] [place] % 6.9 % 0.0-5.0 [facility] Lymph % 42.5 % 24.0-44.0 [facility] Eos % 1.1 % 0.0-3.0 [facility] Baso % 0.6 % 0.0-1.0 [facility] Immature Granulocyte % 0.4 % 0-3.0 [facility] Nucleated Red Blood Cell % 0.0 % 0-0 [facility] ([facility] Neutrophils # 3.5 10 1.5-8.5 [facility] Lymph # 3.0 10 1.5-5.0 [facility] [place] # 0.5 10 0.0-0.8 [facility] Eos # 0.1 10 0.0-0.5 [facility] Baso # 0.0 10 0.0-0.2 [facility] ([facility] ID Date Data Source [id number] 03/10/2020 12:00:00 AM EDT [facility] Yolanda Ferro Patient Name: RONALD [id number] Date of : 1970[place] [address] Date of Exam: 03/10/2020PH#: Fax: [phone] EXAM: MAMMO UNI DIAGNOSTIC INCLUD CADCLINICAL INFORMATION: Diagnostic right breast.Comparison right breast ultrasound 03/10/20, screening mammogram 02/25/2020,11/08/2018.Screening exam shows nodular densities about 7 o'clock position of thelower/outer quadrant of the right breast for spot magnified views with thediagnostic mammogram.Magnified CC and MLO views were performed and show persistence of twoadjacent nodular densities with some lobulated contours. No abnormalcalcifications. No dominant mass or architectural distortion, skinthickening or other secondary sign of malignancy.The right breast ultrasound confirmed that both lesions are about 9 mm insize and represent either a cluster of cysts or cysts with septation. Nocolor-flow within.IMPRESSION:BI-RADS Category 2 - Benign Finding(s). Two nodular densities persist onthe diagnostic mammogram in the lower/outer quadrant of the right breastwith ultrasound confirming these represent cluster of cysts or cysts withseptation at the two locations fairly near each other. No evidence ofmalignancy. Recommend followup annual mammography in one year.This mammogram was read with the assistance of [employer], an FDAapproved computer aided detection system for mammography.Negative x-ray reports should not delay surgical consultation if a dominantor clinically suspicious mass is present.Not all breast cancers can be identified by mammography. Therefore, werecommend that you continue to perform regular breast self-examination andphysical examination and then promptly contact your physician of anyconcerns or changes.Adenosis and dense breasts may obscure an underlying neoplasm.The patient states that a clinical breast examination was over a year ago.DESTINI Villeda/Ramila you for referring GEORGE MCKENZIE to our office.Electronically Signed - ABRAHAM CORBIN MD 03/10/20 18:12 Name Value Range Interpretation Code Description Data Louann rce(s) Supporting Document(s) ID Date Data Source [id number] 03/10/2020 12:00:00 AM EDT [facility] Yolanda Ferro Patient Name: RONALD [id number] Date of : 1970[place] [address] Date of Exam: 03/10/2020#: Fax: [phone] EXAM: ULTRASOUND BREAST UNI LIMITEDCLINICAL INFORMATION: Right breast.Comparison diagnostic digital mammogram 03/10/2020, screening mammogram02/25/2020.FINDINGS:Examination of the lower/outer quadrant at about the 7 o'clock positionwhere there are two visible nodular densities in the right breast. At the7 o'clock position 8 cm from the nipple there is a 9 x 6 x 5 mm cluster ofcysts vs. a septated cyst. elastography score 19.9 kPa.At the 6:30 position about 8 cm from the nipple is another 9 x 7 x 7 mmfocus representing a cluster of cysts or septated cyst. Elastography score15.6 kPa.IMPRESSION:BI- RADS Category 2 - Benign breast ultrasound. Benign findings. Bothnodules seen on mammogram are representing a cluster of cysts or cysts withseptation. No evidence of malignancy.Please see mammogram report this date for final assessmen t andrecommendation.Abraham Corbin, DESTINI/Ramila you for referring GEORGE MCKENZIE to our office. Electronically Signed - ABRAHAM CORBIN MD 03/10/20 18:12 Name Value Range Interpretation Code Description Data Louann rce(s) Supporting Document(s) ID Date Data Source [id number] 02/27/2020 01:12:47 PM EDT [facility] Name Value Range Interpretation Code Description Data Louann rce(s) Supporting Document(s) Progress Note [facility] EVJDTv3nWxEXAkPb55/HSCchFAXup9SbYAeoOCx0NZdcJQRaP8ZqPXL2oE7hRDL8CToBQwDsXuMxPaV4 lbm [file] [employer]IE[employer]INEER[employer] DIV[employer]/4BJtdnvLASjcWTEZZMo8yRMHvPnWE+dEsfsUC1S [file] poSs5DnW74ceklNr20N/copy coordinator+IHb6FQMkaIPSSJ2M1pqKIwQrCYwt37z2w+BdpyABsx/aiVJMsgvMZJln cD7ZY64pBNdtBSikoo7iQCyivnb4MGDwigypo6GlaA 01fOiGCn0E0eK1y5NmLXa2Mch5t60BDx+9IkCg/RSZfMeWGXNDJIC6e5Yk5QQRByUX0r7dOo8jRAv3Ex Ik9YsknMEvoovtV9QppsR3G0125cWWraFubik/vecx0mIpQmx0tHDdnh8JyOIFZDSTF578gZGWllUM1a jBG6qJEdwHSEy9X4SL2h8EggAEn6pN0FIwpmnCxbZY yR4Pd0UOdEN13ivnrVR0cKAjDWbXCiwxFRIjR6SwC4uSNy3u88wqLmNZ3hXBaPDAdEA9rkIBJp3Pz/r+ 50AuYLNFZqFhGJFeVi7Qh9jmqLy0o0c0tF5gxlEG2qgjAT2u0EA+t2K7m+YIoQNyZh0UoJhX5tQT9vL/ ljqC/EJL3gFVGcQb860yHs5u7i4DDoOcIJSS/ocWW0 Jqqkbdxqjw2X16rysTS9BrwXW3pai17omjFQnClZFKKQEWi2wKKGGK09Nh5udeG3GHHSntmerqEOoypD V5dTxSj43kkOcVV/W/7BbucUv2yATeE0HnA6Wsmlfai8B8Tf1MDFsu3W7FYcm2xqo1RnY+6Y6pIB9sC+ KB4i9gNEX9wbagOddkWxKaNk5hzmAuU93ew1rvP+RX Wl/hG57cZxAxdBjBcbp4UJ/loYPOMBYPyxdMvZehALjqzt9ahURSPP1XpZFO0SXSFWOLEQxIzAPisgxe 4AOQAAAAAA+AVQRgAAAAAAACgjAAAAAAAAlBEAAAAAAADKCAAAAAAAAGUEAAAAAACAMgIAAAAAAEAZAQ AAAAAAoIwAAAAAAABQRgAAAAAAACgjAAAAAAAAlBEA AAAAAADKCAAAAAAAAGUEAAAAAACAMgIAAAAAAEAZAQAAAAAAjFZGt/J3oOrrPihgfI6925riuzWZpCYJ [file] ICAgICAgICAgICAgICAgICAgICAgICAgICAgICAgICAgICAgICAgICAgICAgICAgICAgICAgICAgICAg ICAgICAgICAgICANCiAgICAgICAgICAgICAgICAgICAgICAgICAgICAgICAgICAgICAgICAgICAgICAg ICAgICAgICAgICAgICAgICAgICAgICAgICAgICAgIC AgICAgICAgICAgICAgICAgICAgICANCiAgICAgICAgICAgICAgICAgICAgICAgICAgICAgICAgICAgIC AgICAgICAgICAgICAgICAgICAgICAgICAgICAgICAgICAgICAgICAgICAgICAgICAgICAgICAgICAgIC AgICANCiAgICAgICAgICAgICAgICAgICAgICAgICAg ICAgICAgICAgICAgICAgICAgICAgICAgICAgICAgICAgICAgICAgICAgICAgICAgICAgICAgICAgICAg ICAgICAgICAgICAgICANCiAgICAgICAgICAgICAgICAgICAgICAgICAgICAgICAgICAgICAgICAgICAg ICAgICAgICAgICAgICAgICAgICAgICAgICAgICAgIC AgICAgICAgICAgICAgICAgICAgICAgICANCiAgICAgICAgICAgICAgICAgICAgICAgICAgICAgICAgIC AgICAgICAgICAgICAgICAgICAgICAgICAgICAgICAgICAgICAgICAgICAgICAgICAgICAgICAgICAgIC AgICAgICANCiAgICAgICAgICAgICAgICAgICAgICAg ICAgICAgICAgICAgICAgICAgICAgICAgICAgICAgICAgICAgICAgICAgICAgICAgICAgICAgICAgICAg ICAgICAgICAgICAgICAgICANCiAgICAgICAgICAgICAgICAgICAgICAgICAgICAgICAgICAgICAgICAg ICAgICAgICAgICAgICAgICAgICAgICAgICAgICAgIC AgICAgICAgICAgICAgICAgICAgICAgICAgICANCiAgICAgICAgICAgICAgICAgICAgICAgICAgICAgIC AgICAgICAgICAgICAgICAgICAgICAgICAgICAgICAgICAgICAgICAgICAgICAgICAgICAgICAgICAgIC AgICAgICAgICANCiAgICAgICAgICAgICAgICAgICAg ICAgICAgICAgICAgICAgICAgICAgICAgICAgICAgICAgICAgICAgICAgICAgICAgICAgICAgICAgICAg ICAgICAgICAgICAgICAgICAgICANCjw/kRJvC8intGEydaZ5O3daHp2PHc6ZHS8gp3ZtQXMiPRemhtDp RemNKsQwBIMzXycUYhb3IAywTJ6YcALbZ8HdE1AlXK yzHE5EDBTcDJIugAUrWFTaYIAhIpU8XHZbBBymCJ9CeFTlGCzgNCMuJQRpWlLtVVWwYCCzVXWdNWJyYS CXTTIfFDCrBuPkAOOiMOFeHS9TWCCiH479fzFzBk1MBj0ABpXxKG3yjb7GSsapXTWlTtjUZbe5ZBnqNI 7YhWHfzESyANNxDTRFCaUfU9qgl0VeCvskEJEZOFoe IY7Ln9RlcSKgSPo+Is6MVL3pe2QjFIezYXYeEW9ngf5JJOtPHiWgF1RcvJfxBEOtv9kmPAJqMR6gpEEj BXS1VMn4j8XliwMWQKTjIQgbvsRlkjtfQTStUQAjRj4cNe1zRWUkDJEtNxVjDNLFYT7UXTJrEWVlvATc ZNIpQKAHTR4CWWfyLVR3VQZhpxLxyPNwSHcjIK1LYO JlbnQgMzcgMCBSDQo+Vt2NOB6rm5NaIDqlRYXeJZ1vaw8DQHxWXwQdT1D0oBVsQ7N4MBjtNs1NZLYoSE XtYlQxAOQPLIliHE0RPJ5ybvQ4WA3ZmTClTQBvMOOxuAJbKKn0H46bjPPzSXcvQT5WESM+Tamiko+Pg0KIC LmDYVyCARqYqMbMPAUXfRwD7BzH3QPu4SrH4KtEX95 pRnpbnWqZSzfLJ4DXX6wEKNnUYXAAY6MzEXwwM2rocVlQbFjGBNYXtOdB70gfTPqVSNmTET9FHGhWr0E FJZeC8XvjvZavXbambTfVOZmOMEJVR5UBUaegjAuuSSckBjzUK09hQjvQT7FYz6YJnTnEC7kht4GgDFy Ad7TFVJ0PQ6AFGRfTFSoYWWfXIQ5KEDbYtLmZYavXZ XpMMSyDBY5DHLsZOZiLW7STpXzHPRyLBV2JIKwAPToIETnyf9XTHHfLXQ0MhO7OMWiNFFfTYSiSUzrBH QuDATkOQI5ZDVzAKVqYL6NSaMpRRPhPXM3XxIcPFVsSAVazp1GLHDbFNVcRvYyRcRpSDCpRKRtOQwrFB EnOSF3WcAyVXWzSHZdCK8ZJxHhVXMjHRB5MxKgTSHl RQSssf6CBBQuVYXhYzv8TGDuDBQhXLXmIAtyNSGpUGO6JNldEZMfRMAsGA3FVeAuRRWuNOH8SaDsSHRy CBRlpl5XAKPjGXTbLBL4XOFzQBGeIGWwWHedZYXqGIF1Cot6YFKrUOHiLN7YYnPcMOMiOTB1WMPxKLFp INPpik6EUSCaFOEuPXQ1JlSyEGPxAQQxKDunVPShDI J8XGosDFXbPEShCV1QFpXlUGMiFHG5JOLqTNDmNQAbdg4TVOPrBMGhNzE7DZMyYDGjDLOuNXxyAZTqQC F4PrEaCNQjGQDcJE8FFxScZPTgNDtxVWUgHSBrOHEnks7JCKIkOOLbLKP6ZiFhZXUeOYNhKHmvBUXgFX C9SEmwHFZmCEAtSV9NQnQeZJHnJpHhHSTgBLLuGJPa zi5CKKGoBSBqQPRvKmIiSYCqHODeYIggXUMvANVkFYP6DDOrEKYwXT3TPkIjKXWoYaF4ULTfEXLqDXJa ap9ZXVVwWFEfBTi9PHDdPTQkPVYeWDweWZNdKYOiKVo7CFZgMIUjXJ4BVuBxWTRrDjXnTddcAQMuGJAj ei1LTBGySCMiAhI8SEFpZNSmZTZwNUtcFROxLTFhLn F3UJWoTPNvQP5NJrQxRQCrJfIvYPZnAXXiCYLzux9HMDPbZNNgOzX2ZDXmMAYqHYAaNTmuDJXjRFG7SS K9APSlYTCkGT9NLhUuVBChGTA5KApcEMCoZFGccn4KQBKuOOG4WwE7JQHzTMTlUPGjGQekNFNlMLQ0PV EcYVIwLMRrVC7HQbQjEXHyOAa1GTHwXYJeRFBdxw9G YYKyLOI8Kan7QeKkNCVlJDGlURh0tkPfwHXcMRv3VT1OQ3KbdfKkNWMJVl1Nq699MNA6NFDcBs4LN0gw Xb9sGJQiLAQBTi3RJUj2DXBuU0K0XFHiPQE2UjYiLmZ8UFUyUDZtQKryFhI2QEp+EKkaIuY4RXIlVtV7 WzddOCO0AQWcHtR6GRLsUBTiWzorVK7uMDJLZr8+TRxuaGSnzAzzRNAMKeM7CYsxYMpjKVASXx9N ID Date Data Source [id number] 02/26/2020 03:20:00 PM EDT [facility] Name Value Range Interpretation Code Description Data Louann rce(s) Supporting Document(s) Occult Blood Laboratory test result [facility] OCCULT BLOOD 1 NEGATIVE ID Date Data Source [id number] 02/25/2020 03:08:00 PM EDT [facility] Name Value Range Interpretation Code Description Data Louann rce(s) Supporting Document(s) Creatinine For GFR 0.73 mg/dL 0.55-1.30 [facility] Glucose, Fasting 103 mg/dL 70-100 [facility] Blood Urea Nitrogen 14 mg/dL 7-18 [facility] Sodium Level 140 meq/L 136-145 [facility] Glomerular Filtration Rate Laboratory test result [facility] <content>Units are mL/min/1.73 m2</content>
<content></content>
<content>Chronic Kidney Disease Staging per [facility]:</content>
<content></content>
<content>Stage I & II GFR >=60 Normal to Mildly Decreased</content>
<content>Stage III GFR 30-59 Moderately Decreased</content>
<content>Stage IV GFR 15-29 Severely Decreased</content>
<content>Stage V GFR <15 Very Little GFR Left</content>
<content>ESRD GFR <15 on NEPHROLOGY NURSE</content>
<content></content> Potassium Serum 3.8 meq/L 3.5-5.1 [facility] Chloride Level 109 meq/L 98-107 [facility] Anion Gap 3 meq/L 8-16 [facility] Carbon Dioxide Level 28 meq/L 21-32 [facility] Alt/SGPT 18 U/L 12-78 [facility] Calcium Level 9.0 mg/dL 8.5-10.1 [facility] Ast/Sgot 10 U/L 7-37 [facility] Alkaline Phosphatase 61 U/L 45-117 [facility] Bilirubin,Total 0.4 mg/dL 0.2-1.0 [facility] Albumin/Globulin Ratio 1.2 1.2-2.2 [facility] Albumin 3.6 GM/DL 3.2-5.2 [facility] Total Protein 6.5 GM/DL 6.4-8.2 [facility] ID Date Data Source [id number] 02/25/2020 03:08:00 PM EDT [facility] Name Value Range Interpretation Code Description Data Louann rce(s) Supporting Document(s) Red Blood Count 3.95 10 4.00-5.40 [facility] White Blood Count 8.2 10 4.0-10.0 [facility] Hemoglobin 12.2 g/dL 12.0-15.5 [facility] Hematocrit 37.7 % 36.0-47.0 [facility] Mean Corpuscular Volume 95.4 fl 80.0-96.0 M [facility] Mean Corpuscular Hemoglobin 30.9 pg 27.0-33.0 [facility] Mean Corpuscular HGB Conc 32.4 g/dL 32.0-36.5 [facility] Red Cell Distribution Width 13.2 % 11.5-14.5 [facility] Platelet Count, Automated 156 10 150-450 [facility] Lymph % 42.1 % 24.0-44.0 [facility] Neutrophils % 49.3 % 36.0-66.0 [facility] Eos % 1.2 % 0.0-3.0 [facility] Baso % 0.5 % 0.0-1.0 [facility] Winona % 6.7 % 0.0-5.0 [facility] Nucleated Red Blood Cell % 0.0 % 0-0 [facility] Neutrophils # 4.0 10 1.5-8.5 [facility] Immature Granulocyte % 0.2 % 0-3.0 [facility] Winona # 0.6 10 0.0-0.8 [facility] Lymph # 3.5 10 1.5-5.0 [facility] Baso # 0.0 10 0.0-0.2 [facility] Eos # 0.1 10 0.0-0.5 [facility] ID Date Data Source [id number] 02/25/2020 12:00:00 AM EDT [facility] Yolanda Ferro Patient Name: RONALD [id number] Date of : 1970[place] [address] Date of Exam: 02/25/2020#: Fax: [phone] EXAM: MAMMO SCREENING WITH CADCLINICAL INFORMATION: Screening.Based on the personal and family history information your patient suppliedat the time of imaging, her lifetime risk of breast cancer estimated by theTyrer-Cuzick model is 4.4%. Given that this patient has less than 20% TCrisk score, no further medical management is currently recommended at thistime.Your patient's personal and/or family history of cancer submitted at thetime of imaging is suggestive of a hereditary cancer syndrome. She meetsthe criteria for genetic testing established by [facility] and [employer] guidelines. She should pursue arisk assessment with a hereditary cancer specialist which may includetesting based on these criteria. The benefits and limitations of genetictesting would be discussed, including potential changes to medicalmanagement based on the results. Your patient declined myRisk genetictesting at this time.Digital screening (2D) mammography was performed bilaterally in the CC andMLO projections. Additionally, breast tomosynthesis (3D mammography) wasperformed bilaterally in the CC and MLO projections. Today's exam wascompared to the prior exam(s).By history, the patient has no complaints of a palpable breast abnormalityor other significant breast complaints.The patient states that a clinical breast exam was not performed.The breasts are unchanged in size and shape.In the lower aspect of the right breast near the 6 o'clock position, thereis a potential eduarda-density. There are no other suspicious features seen ineither breast. There are no areas of spiculation or internal architecturaldistortion. There are no skin thickening or nipple retraction. There areno suspicious microcalcific clusters.The Volpara volumetric breast density category is B, there are scatteredareas of fibroglandular density.IMPRESSION:BI-RADS Category 0 - Incomplete: Needs additional imaging evaluation.Potential eduarda-density right breast as described above for which diagnosticdigital magnified spot compression views are recommended in the CC and MLOprojections along with diagnostic ultrasonography if indicated.Our office will attempt to contact the patient for additional imaging.This mammogram was read with the assistance of [employer], an FDAapproved computer aided detection system for mammography.Negative x-ray reports should not delay surgical consultation if a dominantor clinically suspicious mass is present.Not all breast cancers can be identified by mammography. Therefore, werecommend that you continue to perform regular breast self-examination andphysical examination and then promptly contact your physician of anyconcerns or changes.Adenosis and dense breasts may obscure an underlying neoplasm.LEIGH Cooley/Ramila you for referring GEORGE MCKENZIE to our office. Electronically Signed - OLINDA MOSES DO 02/26/20 17:07 Name Value Range Interpretation Code Description Data Louann rce(s) Supporting Document(s) ID Date Data Source [id number] 02/25/2020 12:00:00 AM EDT [facility] Shayla Phani, Credit Portfolio Manager Patient Name: RONALD [id number] Date of : 1970[place] [address] Date of Exam: 02/25/2020PH#: Fax: [phone] EXAM: FINGER(S) X-RAYCLINICAL INFORMATION: Pain.Right hand, 4th digit. These images were obtained using digitalradiography.There is no acute fracture or destructive osseous lesion.LEIGH Cooley/Claudia you for referring GEORGE MCKENZIE to our office. Electronically Signed - OLINDA MOSES DO 02/26/20 10:09 Name Value Range Interpretation Code Description Data Louann rce(s) Supporting Document(s) ID Date Data Source [id number] 02/25/2020 12:00:00 AM EDT [facility] Shayla Phani, Credit Portfolio Manager Patient Name: KIKE [id number] Date of : 1970[place] [address] Date of Exam: 02/25/2020PH#: Fax: [phone] EXAM: CHEST (2 VIEW) X-RAYCLINICAL INFORMATION: Positive PPD.Two views. These images were obtained using digital radiography.Comparison 09/05/2019 and 03/10/2019.The superior mediastinal structures are midline. The heart is notenlarged. The diaphragmatic surfaces of the lungs are regular and thecostophrenic angles are clear. The pulmonary tafoya are clear. Thevisualized osseous structures are intact.IMPRESSION:There is no acute ca rdiopulmonary disease.No significant change.LEIGH Cooley/Ramila you for referring GEORGE MCKENZIE to our office. Electronically Signed - OLINDA MOSES DO 02/26/20 10:08 Name Value Range Interpretation Code Description Data Louann rce(s) Supporting Document(s) ID Date Data Source [id number] 09/11/2019 06:52:00 AM EST [facility] Name Value Range Interpretation Code Description Data Louann rce(s) Supporting Document(s) Magnesium [Mass/volume] in Serum or Plasma 1.9 mg/dL 1.8-2.4 [facility] Calcitriol [Mass/volume] in Serum or Plasma 50.7 pg/mL 19.9-79.3 [facility] ID Date Data Source [id number] 09/11/2019 06:52:00 AM EST [facility] Name Value Range Interpretation Code Description Data Louann rce(s) Supporting Document(s) Glucose, Fasting 82 mg/dL 70-100 [facility] Blood Urea Nitrogen 15 mg/dL 7-18 [facility] Glomerular Filtration Rate Laboratory test result [facility] <content>Units are mL/min/1.73 m2</content>
<content></content>
<content>Chronic Kidney Disease Staging per [facility]:</content>
<content></content>
<content>Stage I & II GFR >=60 Normal to Mildly Decreased</content>
<content>Stage III GFR 30- 59 Moderately Decreased</content>
<content>Stage IV GFR 15-29 Severely Decreased</content>
<content>Stage V GFR <15 Very Little GFR Left</content>
<content>ESRD GFR <15 on NEPHROLOGY NURSE</content>
<content></content> Creatinine For GFR 0.69 mg/dL 0.55-1.30 [facility] Potassium Serum 4.0 meq/L 3.5-5.1 [facility] Chloride Level 112 meq/L 98-107 [facility] Sodium Level 142 meq/L 136-145 [facility] Carbon Dioxide Level 25 meq/L 21-32 [facility] Calcium Level 8.8 mg/dL 8.5-10.1 [facility] Ast/Sgot 9 U/L 7-37 [facility] Anion Gap 5 meq/L 8-16 [facility] Alt/SGPT 15 U/L 12-78 [facility] Bilirubin,Total 0.4 mg/dL 0.2-1.0 [facility] Alkaline Phosphatase 50 U/L 45-117 [facility] Total Protein 6.2 GM/DL 6.4-8.2 [facility] Albumin/Globulin Ratio 1.21 1.00-1.93 [facility] Albumin 3.4 GM/DL 3.2-5.2 [facility] ID Date Data Source [id number] 09/11/2019 06:52:00 AM EST [facility] Name Value Range Interpretation Code Description Data Louann rce(s) Supporting Document(s) Triglycerides Level 72 mg/dL [facility] Cholesterol Level 148 mg/dL [facility] LDL Cholesterol 89 mg/dL [facility] HDL Cholesterol 45 mg/dL [facility] Cholesterol Risk Ratio 3.288 [facility] Non-HDL-C 103 mg/dL [facility] ID Date Data Source [id number] 09/11/2019 06:52:00 AM EST [facility] Name Value Range Interpretation Code Description Data Louann rce(s) Supporting Document(s) Hemoglobin 11.9 g/dL 12.0-15.5 [facility] White Blood Count 7.4 10 4.0-10.0 [facility] Red Blood Count 3.77 10 4.00-5.40 [facility] Mean Corpuscular Volume 95.8 fl 80.0-96.0 M [facility] Hematocrit 36.1 % 36.0-47.0 [facility] Mean Corpuscular Hemoglobin 31.6 pg 27.0-33.0 [facility] Red Cell Distribution Width 13.6 % 11.5-14.5 [facility] Mean Corpuscular HGB Conc 33.0 g/dL 32.0-36.5 [facility] Lymph % 51.3 % 24.0-44.0 [facility] Platelet Count, Automated 158 10 150-450 [facility] Neutrophils % 41.0 % 36.0-66.0 [facility] Eos % 1.5 % 0.0-3.0 [facility] Winona % 5.4 % 0.0-5.0 [facility] Baso % 0.5 % 0.0-1.0 [facility] Immature Granulocyte % 0.3 % 0-3.0 [facility] Neutrophils # 3.0 10 1.5-8.5 [facility] Nucleated Red Blood Cell % 0.0 % 0-0 [facility] Eos # 0.1 10 0.0-0.5 [facility] Lymph # 3.8 10 1.5-5.0 [facility] Winona # 0.4 10 0.0-0.8 [facility] Baso # 0.0 10 0.0-0.2 [facility] ID Date Data Source [id number] 09/11/2019 06:52:00 AM EST [facility] Name Value Range Interpretation Code Description Data Louann rce(s) Supporting Document(s) Antinuclear Antibodies Direct Laboratory test result [facility] Performed at: [address] [place] [address] [id number] Airplane Pilot: Sloan Calvillo PhD, Phone: [phone] Performed at: [address] [id number] Airplane Pilot: Allison Cruz MD, Phone: [phone] Performed at: [place] [id number] Airplane Pilot: Alessandra Brito MD, Phone: [phone] ID Date Data Source [id number] 09/11/2019 06:52:00 AM EST [facility] Name Value Range Interpretation Code Description Data Louann rce(s) Supporting Document(s) HLA-B27 [Presence] by Probe and target amplification m ethod Laboratory test result [facility] HLA-B*27 Negative B27 allele interpretation for all loci based on IMGT/HLA database version 3.35 This test was developed and its performance characteristics determined by [facility]. It has not been cleared or approved by the Food and Drug Administration. [facility] CLIA ID Number [id number] . This test was performed using PCR (Polymerase Chain Reaction)/SSOP (Sequence Specific Oligonucleotide Probes) technique. SBT (Sequence Based Typing) and/or SSP (Sequence Specific Primers) may be used as supplemental methods when necessary. Please contact [facility] Customer Service at if you have any questions. . Director of [facility] Dr Sloan Calvillo, PhD Rheumatoid factor [Units/volume] in Serum or Plasma Laboratory test result [facility] ID Date Data Source [id number] 09/11/2019 06:52:00 AM EST [facility] Name Value Range Interpretation Code Description Data Louann rce(s) Supporting Document(s) Magnesium [Mass/volume] in Serum or Plasma 1.9 mg/dL 1.8-2.4 [facility] ID Date Data Source [id number] 09/11/2019 06:52:00 AM EST [facility] Name Value Range Interpretation Code Description Data Louann rce(s) Supporting Document(s) Rheumatoid factor [Units/volume] in Serum or Plasma < 10.0 IU/ml [facility] ID Date Data Source [id number] 09/09/2019 02:49:22 PM EST [facility] XR SPINE LUMBAR 4-MORE VIEWS [id number] RESULTInterpreted by:Nader Malin MDEXAM: Lumbosacral Spine 4 views. AP. Neutral, Flexion and Extension Lateral. Weightbearing. . HISTORY: Back pain.COMPARISON: 08/21/2016FINDINGS:The vertebral bodies are normal height. No fracture or destructive bone lesion.Bilateral spondylolysis L5. 7 mm anterolisthesis L5-S1 in the neutral position. No significant change in flexion or extension.Mild disc space narrowing and endplate osteophytes L5-S1. Other lumbar disc spaces are well preserved.Mild arterial calcification.IMPRESSION: L5-S1 spondylolysis and spondylolisthesis unchanged. This document has been electronically signed by Nader Malin MD on 09/09/2019 2:47 PM Name Value Range Interpretation Code Description Data Louann rce(s) Supporting Document(s) ID Date Data Source [id number] 09/05/2019 04:00:00 PM EST [facility] Name Value Range Interpretation Code Description Data Louann e(s) Supporting Document(s) CPK Creatine Phosphokinase 46 U/L 26-192 [facility] CK-MB Value Mass 1.0 ng/mL [facility] MB/CK Relative Index 2.17 [facility] <content>DIAGNOSIS CRITERIA</content>
<content>MMB ng/ml Relative Index (RI)</content>
<content>NON-AMI < or = 5 N/A</content>
<content>MARTINEZ ZONE > 5 < or = 4</content>
<content>AMI > 5 > 4</content>
<content></content> Troponin I Laboratory test result [facility] <content>Troponin I Reference Interval f or Siemens [place] LOCI:</content>
<content></content>
<content>99th Percentile= 0.00-0.045 ng/ml</content>
<content></content>
<content>Risk Stratification:</content>
<content><= 0.10 ng/ml Decreased Risk for Adverse Clinical</content>
<content>Events.</content>
<content>0.10-1.50 ng/ml Increased Risk for Adverse Clinical</content>
<content>Events. Evaluation of additional</content>
<content>criterion and/or repeat testing in 2-6</content>
<content>hours is suggested to rule out myocardial</content>
<content>damage.</content>
<content>>= 1.50 ng/ml Indicative of Myocardial Injury.</content>
<content></content> ID Date Data Source [id number] 09/05/2019 10:30:00 AM EST [facility] Name Value Range Interpretation Code Description Data Louann rce(s) Supporting Document(s) Thyrotropin [Units/volume] in Serum or Plasma 2.490 uIU/ML 0.358-3.74 0 [facility] Lipoprotein lipase [Enzymatic activity/volume] in Serum or Plasm a 95 U/L 73-393 [facility] Fibrin D-dimer FEU [Mass/volume] in Platelet poor plasma 659.68 ng/mL [facility] Thyroxine (T4) free [Mass/volume] in Serum or Plasma 0.98 ng/dL 0.76- 1.46 [facility] ID Date Data Source [id number] 09/05/2019 10:30:00 AM EST [facility] Name Value Range Interpretation Code Description Data Louann e(s) Supporting Document(s) Blood Urea Nitrogen 15 mg/dL 7-18 [facility] Creatinine For GFR 0.74 mg/dL 0.55-1.30 [facility] Glucose, Fasting 79 mg/dL 70-100 [facility] Potassium Serum 4.0 meq/L 3.5-5.1 [facility] Sodium Level 143 meq/L 136-145 [facility] Glomerular Filtration Rate Laboratory test result [facility] <content>Units are mL/min/1.73 m2</content>
<content></content>
<content>Chronic Kidney Disease Staging per [facility]:</content>
<content></content>
<content>Stage I & II GFR >=60 Normal to Mildly Decreased</content>
<content>Stage III GFR 30- 59 Moderately Decreased</content>
<content>Stage IV GFR 15-29 Severely Decreased</content>
<content>Stage V GFR <15 Very Little GFR Left</content>
<content>ESRD GFR <15 on NEPHROLOGY NURSE</content>
<content></content> Anion Gap 6 meq/L 8-16 [facility] Chloride Level 109 meq/L 98-107 [facility] Carbon Dioxide Level 28 meq/L 21-32 [facility] Calcium Level 8.9 mg/dL 8.5-10.1 [facility] ID Date Data Source [id number] 09/05/2019 10:30:00 AM EST [facility] Name Value Range Interpretation Code Description Data Louann rce(s) Supporting Document(s) Ast/Sgot 14 U/L 7-37 [facility] Bilirubin,Total 0.4 mg/dL 0.2-1.0 [facility] Alkaline Phosphatase 56 U/L 45-117 [facility] Alt/SGPT 17 U/L 12-78 [facility] Total Protein 7.1 GM/DL 6.4-8.2 [facility] Bilirubin,Direct 0.1 mg/dL 0.0-0.2 [facility] Albumin 3.8 GM/DL 3.2-5.2 [facility] Albumin/Globulin Ratio 1.15 1.00-1.93 [facility] ([facility] ID Date Data Source [id number] 09/05/2019 10:30:00 AM EST [facility] Name Value Range Interpretation Code Description Data Louann rce(s) Supporting Document(s) CPK Creatine Phosphokinase 55 U/L 26-192 [facility] CK-MB Value Mass Laboratory test result [facility] MB/CK Relative Index 1.82 [facility] <content>DIAGNOSIS CRITERIA</content>
<content>MMB ng/ml Relative Index (RI)</content>
<content>NON-AMI < or = 5 N/A</content>
<content>MARTINEZ ZONE > 5 < or = 4</content>
<content>AMI > 5 > 4</content>
<content></content> Troponin I Laboratory test result [facility] <content>Troponin I Reference Interval f or Siemens [place] LOCI:</content>
<content></content>
<content>99th Percentile= 0.00-0.045 ng/ml</content>
<content></content>
<content>Risk Stratification:</content>
<content><= 0.10 ng/ml Decreased Risk for Adverse Clinical</content>
<content>Events.</content>
<content>0.10-1.50 ng/ml Increased Risk for Adverse Clinical</content>
<content>Events. Evaluation of additional</content>
<content>criterion and/or repeat testing in 2-6</content>
<content>hours is suggested to rule out myocardial</content>
<content>damage.</content>
<content>>= 1.50 ng/ml Indicative of Myocardial Injury.</content>
<content></content> ID Date Data Source [id number] 09/05/2019 10:30:00 AM EST [facility] Name Value Range Interpretation Code Description Data Louann rce(s) Supporting Document(s) aPTT in Platelet poor plasma by Coagulation assay 30.8 s 25.0-38. 4 [facility] ID Date Data Source [id number] 09/05/2019 10:30:00 AM EST [facility] Name Value Range Interpretation Code Description Data Louann rce(s) Supporting Document(s) Prothrombin Time 13.2 s 11.8-14.0 [facility] Inr 1.03 [facility] THERAPUTIC HUMAN INR VALUES INDICATIONS NORMAL RANGES PROPHYLAXIS/TREATMENT OF: VENOUS THROMBOSIS 2.0-3.0 PULMONARY EMBOLISM 2.0-3.0 PREVENTION OF SYSTEMIC EMBOLISM FROM: TISSUE HEART VALVES 2.0-3.0 ACUTE MYOCARDIAL INFARCTION 2.0-3.0 VALVULAR HEART DISEASE 2.0-3.0 ATRIAL FIBRILLATION 2.0-3.0 MECHANICAL VALVES(HIGH RISK) 2.5-3.5 RECURRENT MYOCARDIAL INFARCTION 2.5-3.5 ID Date Data Source [id number] 09/05/2019 10:30:00 AM EST [facility] ([facility] Name Value Range Interpretation Code Description Data Louann rce(s) Supporting Document(s) White Blood Count 9.1 10 4.0-10.0 [facility] ([facility] Hemoglobin 13.3 g/dL 12.0-15.5 [facility] ([facility] Red Blood Count 4.22 10 4.00-5.40 [facility] ([facility] Hematocrit 41.4 % 36.0-47.0 [facility] ([facility] Mean Corpuscular Volume 98.1 fl 80.0-96.0 M [facility] ([facility] Mean Corpuscular HGB Conc 32.1 g/dL 32.0-36.5 [facility] ([facility] Mean Corpuscular Hemoglobin 31.5 pg 27.0-33.0 [facility] ([facility] Platelet Count, Automated 174 10 150-450 [facility] Red Cell Distribution Width 14.0 % 11.5-14.5 [facility] ([facility] Lymph % 42.1 % 24.0-44.0 [facility] ([facility] Neutrophils % 48.9 % 36.0-66.0 [facility] ([facility] [place] % 6.5 % 0.0-5.0 [facility] ([facility] Eos % 1.7 % 0.0-3.0 [facility] ([facility] Immature Granulocyte % 0.4 % 0-3.0 [facility] ([facility] Nucleated Red Blood Cell % 0.0 % 0-0 [facility] ([facility] Baso % 0.4 % 0.0-1.0 [facility] ([facility] [place] # 0.6 10 0.0-0.8 [facility] ([facility] Lymph # 3.8 10 1.5-5.0 [facility] ([facility] Neutrophils # 4.4 10 1.5-8.5 [facility] ([facility] Baso # 0.0 10 0.0-0.2 [facility] ([facility] Eos # 0.2 10 0.0-0.5 [facility] ([facility] ID Date Data Source [id number] 08/19/2019 09:27:01 AM [facility] MR LUMBAR SPINE WITHOUT CONTRAST [id number] NAL RESULTInterpreted by:Cecilio Damon [facility] LUMBAR SPINE WITHOUT CONTRASTINDICATION: Low back pain.COMPARISON: 04/03/2015. TECHNIQUE: MRI of the lumbar spine was performed without intravenous contrast, utilizing multiplanar sequences.FINDINGS: There is normal lumbar lordosis. There is grade 1 spondylolisthesis at L5-S1 measuring 6 mm. Otherwise, normal vertebral body heights, alignment, and marrow signal are maintained.At L5-S1, in combination with grade 1 spondylolisthesis, a broad-based disc bulge is identified, resultin g in moderate bilateral neural foraminal narrowing, left greater than right, with possible impingement of the exiting bilateral foraminal L5 nerve roots. No significant central spinal canal stenosis is demonstrated at this level.Otherwise, the remainder of the lumbar levels appear unremarkable, without evidence of asymmetric disc herniation, central spinal canal stenosis, or neural foraminal narrowing. No paravertebral or epidural mass is seen. The conus appears unremarkable.IMPRESSION: Since 04/03/2015,No significant interval change.Grade 1 spondylolisthesis at L5-S1, with associated broad-based [place] ntric disc bulge, resulting in moderate bilateral neural foraminal narrowing with possible impingement of the exiting bilateral foraminal L5 nerve roots, left greater than right.This document has been electronically signed by Cecilio Damon MD on 08/19/2019 9:24 AM Name Value Range Interpretation Code Description Data Louann rce(s) Supporting Document(s) ID Date Data Source [id number] 08/11/2019 07:32:15 AM EST [facility] Name Value Range Interpretation Code Description Data Louann rce(s) Supporting Document(s) Progress Note [facility] [id number] lbm [file] [id number] Procedure Social History Code Duration Value Status Description Data Source(s ) Alcohol intake 08/05/2019 12:00:00 AM EST Current drinker of al cohol (finding) completed Current drinker of alcohol (finding) [facility] Cigarette pack-years 08/05/2019 12:00:00 AM EST [facility] Cigarettes smoked current (pack per day) - Reported 08/05/20 19 12:00:00 AM EST [facility] Smoking 08/05/2019 12:00:00 AM EST Current every day smoker co mpleted Current every day smoker [facility] Vital Signs ID Date Data Source UNK Name Value Range Interpretation Code Description Data Source(s) Body weight 242.00 [lb_av] 242.00 [lb_av] [facility] T ([facility], [facility]) Body temperature 98.0 [degF] 98.0 [degF] [facility] ([facility]) Oxygen saturation in Arterial blood by Pulse oximetry 97 % 97 % [facility] ([facility]) Respiratory rate 16 /min 16 /min [facility] ( [facility]) Heart rate 59 /min 59 /min [facility]) Diastolic blood pressure 58 mm[Hg] 58 mm[Hg] [facility] ([facility]) Systolic blood pressure 85 mm[Hg] 85 mm[Hg] M EDENT ([facility], [facility]) [place] body weight 115 [lb_av] 115 [lb_av] [facility] T ([facility] Oxygen saturation in Arterial blood by Pulse oximetry 98 % 98 % [facility] ([facility] Body weight 243.12 [lb_av] 243.12 [lb_av] [facility] T ([facility] Body height 63.5 [in_i] 63.5 [in_i] [facility] ([facility] 5'3.50" Respiratory rate 20 /min 20 /min [facility] ( [facility] Body temperature 97.7 [degF] 97.7 [degF] [facility] ([facility] Heart rate 70 /min 70 /min [facility] ([facility] Diastolic blood pressure 75 mm[Hg] 75 mm[Hg] [facility] ([facility] Systolic blood pressure 118 mm[Hg] 118 mm[Hg] [facility] ([facility] Body mass index (BMI) [Ratio] 42.4 kg/m2 42.4 k g/m2 [facility] ([facility] Body mass index (BMI) [Ratio] 42.3 kg/m2 42.3 k g/m2 [facility] ([facility] [place] body weight 115 [lb_av] 115 [lb_av] MED[facility] T ([facility] Oxygen saturation in Arterial blood by Pulse oximetry 99 % 99 % [facility] ([facility] Body weight 242.50 [lb_av] 242.50 [lb_av] [facility] T ([facility] Body height 63.5 [in_i] 63.5 [in_i] [facility] ([facility] 5'3.50" Respiratory rate 16 /min 16 /min [facility] ( [facility] Body temperature 96.8 [degF] 96.8 [degF] [facility] ([facility] Heart rate 61 /min 61 /min [facility] ([facility] Diastolic blood pressure 73 mm[Hg] 73 mm[Hg] [facility] ([facility] Systolic blood pressure 123 mm[Hg] 123 mm[Hg] [facility] Body weight 108.864 kg 108.864 kg [facility] ([facility]) Body mass index (BMI) [Ratio] 39.9 kg/m2 39.9 k g/m2 [facility] ([facility]) Body weight 240.00 [lb_av] 240.00 [lb_av] MEDEN T ([facility]) Body height 65 [in_i] 65 [in_i] [facility] ([facility]) 5'5" Heart rate 67 /min 67 /min [facility] ([facility]) Diastolic blood pressure 73 mm[Hg] 73 mm[Hg] [facility] ([facility]) Systolic blood pressure 94 mm[Hg] 94 mm[Hg] [facility] ([facility]) Body mass index (BMI) [Ratio] 41.7 kg/m2 41.7 k g/m2 [facility] ([facility] [place] body weight 115 [lb_av] 115 [lb_av] MEDEN T ([facility] Oxygen saturation in Arterial blood by Pulse oximetry 98 % 98 % [facility] ([facility] Body weight 239.38 [lb_av] 239.38 [lb_av] [facility] T ([facility] Body height 63.5 [in_i] 63.5 [in_i] [facility] ([facility] 5'3.50" Respiratory rate 18 /min 18 /min [facility] ( [facility] Body temperature 97.8 [degF] 97.8 [degF] [facility] ([facility] Heart rate 64 /min 64 /min [facility] ([facility] Diastolic blood pressure 77 mm[Hg] 77 mm[Hg] [facility] ([facility] Systolic blood pressure 97 mm[Hg] 97 mm[Hg] [facility] Body weight 106.766 kg 106.766 kg [facility] ([facility]) Body mass index (BMI) [Ratio] 39.2 kg/m2 39.2 k g/m2 [facility] ([facility]) Body weight 235.38 [lb_av] 235.38 [lb_av] MED[facility] T ([facility]) Body height 65 [in_i] 65 [in_i] [facility] ([facility]) 5'5" Heart rate 53 /min 53 /min [facility] ([facility]) Diastolic blood pressure 74 mm[Hg] 74 mm[Hg] [facility] ([facility]) Systolic blood pressure 104 mm[Hg] 104 mm[Hg] [facility] ([facility]) Body weight 77.112 kg 77.112 kg [facility] ([facility]) Body mass index (BMI) [Ratio] 28.3 kg/m2 28.3 k g/m2 [facility] ([facility]) Body weight 170.00 [lb_av] 170.00 [lb_av] [facility] T ([facility]) Body height 65 [in_i] 65 [in_i] [facility] ([facility]) 5'5" Body temperature 97.5 [degF] 97.5 [degF] [facility] Body weight 109.771 kg 109.771 kg [facility] ([facility]) Body mass index (BMI) [Ratio] 40.9 kg/m2 40.9 k g/m2 [facility] ([facility]) Body weight 242.00 [lb_av] 242.00 [lb_av] [facility] T ([facility]) Body height 64.5 [in_i] 64.5 [in_i] [facility] ([facility]) 5'4.50" Diastolic blood pressure 62 mm[Hg] 62 mm[Hg] [facility] ([facility]) Systolic blood pressure 112 mm[Hg] 112 mm[Hg] M EDENT ([facility]) Body mass index (BMI) [Ratio] 40.6 kg/m2 40.6 k g/m2 [facility] ([facility] [place] body weight 120 [lb_av] 120 [lb_av] MED[facility] T ([facility] Oxygen saturation in Arterial blood by Pulse oximetry 98 % 98 % [facility] ([facility] Body weight 240.50 [lb_av] 240.50 [lb_av] MED[facility] T ([facility] Body height 64.50 [in_i] 64.50 [in_i] [facility] ([facility] 5'4.50" Respiratory rate 17 /min 17 /min [facility] ( [facility] Body temperature 98.8 [degF] 98.8 [degF] [facility] ([facility] Heart rate 81 /min 81 /min [facility] ([facility] Diastolic blood pressure 61 mm[Hg] 61 mm[Hg] [facility] ([facility] Systolic blood pressure 95 mm[Hg] 95 mm[Hg] M EDENT ([facility] Body mass index (BMI) [Ratio] 39.5 kg/m2 39.5 k g/m2 [facility] ([facility], [facility]) Body height 64 [in_i] 64 [in_i] [facility] ([facility]) 5'4" Body weight 230.00 [lb_av] 230.00 [lb_av] [facility] T ([facility]) Body temperature 98.2 [degF] 98.2 [degF] [facility] ([facility]) Oxygen saturation in Arterial blood by Pulse oximetry 95 % 95 % [facility] ([facility]) Respiratory rate 12 /min 12 /min [facility] ( [facility]) Heart rate 74 /min 74 /min [facility] ([facility]) Diastolic blood pressure 74 mm[Hg] 74 mm[Hg] [facility] ([facility]) Systolic blood pressure 98 mm[Hg] 98 mm[Hg] M EDENT ([facility]) Body mass index (BMI) [Ratio] 41.2 kg/m2 41.2 k g/m2 [facility] ([facility] Oxygen saturation in Arterial blood by Pulse oximetry 98 % 98 % [facility] ([facility] Body weight 244.00 [lb_av] 244.00 [lb_av] MED[facility] T ([facility] Body height 64.50 [in_i] 64.50 [in_i] [facility] ([facility] 5'4.50" Respiratory rate 14 /min 14 /min [facility] ( [facility] Body temperature 97.1 [degF] 97.1 [degF] [facility] ([facility] Heart rate 68 /min 68 /min [facility] ([facility] Diastolic blood pressure 51 mm[Hg] 51 mm[Hg] [facility] ([facility] Systolic blood pressure 83 mm[Hg] 83 mm[Hg] M EDENT ([facility] Body mass index (BMI) [Ratio] 40.4 kg/m2 40.4 k g/m2 [facility] ([facility] Oxygen saturation in Arterial blood by Pulse oximetry 98 % 98 % [facility] ([facility] Body weight 239.38 [lb_av] 239.38 [lb_av] MEDEN T ([facility] Body height 64.50 [in_i] 64.50 [in_i] [facility] ([facility] 5'4.50" Respiratory rate 17 /min 17 /min [facility] ( [facility] Body temperature 97.0 [degF] 97.0 [degF] [facility] ([facility] Heart rate 61 /min 61 /min [facility] ([facility] Diastolic blood pressure 62 mm[Hg] 62 mm[Hg] [facility] ([facility] la Systolic blood pressure 83 mm[Hg] 83 mm[Hg] [facility] ([facility] la Body mass index (BMI) [Ratio] 41.8 kg/m2 41.8 k g/m2 [facility] ([facility] Oxygen saturation in Arterial blood by Pulse oximetry 97 % 97 % [facility] ([facility] Body weight 247.25 [lb_av] 247.25 [lb_av] MED[facility] T ([facility] Body height 64.50 [in_i] 64.50 [in_i] [facility] ([facility] 5'4.50" Respiratory rate 16 /min 16 /min [facility] ( [facility] Body temperature 97.5 [degF] 97.5 [degF] [facility] ([facility] Heart rate 63 /min 63 /min [facility] ([facility] Diastolic blood pressure 68 mm[Hg] 68 mm[Hg] [facility] ([facility] Systolic blood pressure 107 mm[Hg] 107 mm[Hg] [facility] ID Date Data Source [id number] 09/20/2019 10:19:50 AM [facility] Name Value Range Interpretation Code Description Data Source(s) WEIGHT RECORDED 243 lb 243 lb [facility] Body height Measured 64.25 in 64.25 in [facility] Patient Treatment Plan of Care Planned Activity Planned Date Details Description Data Source (s) gabapentin 100 MG Oral Capsule 02/25/2020 12:00:[address] [facility]
--- NOTE | 2020-09-27 15:42 | REP ---
INDICATION: CHEST PAIN. COMPARISON: 02/25/2020. TECHNIQUE: SINGLE PORTABLE AP VIEW OF THE CHEST WAS PERFORMED. FINDINGS: THERE IS NO ACUTE INFILTRATE OR PULMONARY EDEMA. LUNGS ARE CLEAR. HEART IS NOT SIGNIFICANTLY ENLARGED. MEDIASTINAL SILHOUETTE IS UNREMARKABLE. THE VISUALIZED OSSEOUS STRUCTURES ARE INTACT. IMPRESSION: NO ACUTE PULMONARY DISEASE. <Electronically signed by Caleb Samaniego > 09/27/20 153
[2020-09-27 16:01] LABS: BASO % 0.5 % (0.0-1.0); EOS # 0.1 10^3/uL (0.0-0.5); EOS % 0.8 % (0.0-3.0); HEMATOCRIT 37.6 % (36.0-47.0); HEMOGLOBIN 11.8 g/dl (12.0-15.5); LYMPH # 2.7 10^3/uL (1.5-5.0); LYMPH % 34.8 % (24.0-44.0); MEAN CORPUSCULAR HEMOGLOBIN 30.5 pg (27.0-33.0); MEAN CORPUSCULAR HGB CONC 31.4 g/dl (32.0-36.5); MEAN CORPUSCULAR VOLUME 97.2 fl (80.0-96.0); MONO # 0.5 10^3/uL (0.0-0.8); MONO % 6.4 % (0.0-5.0); NEUTROPHILS # 4.4 10^3/uL (1.5-8.5); NEUTROPHILS % 57.2 % (36.0-66.0); PLATELET COUNT, AUTOMATED 149 10^3/uL (150-450); RED BLOOD COUNT 3.87 10^6/uL (4.00-5.40); WHITE BLOOD COUNT 7.7 10^3/uL (4.0-10.0)
[2020-09-27 16:36] LABS: BILIRUBIN,DIRECT 0.1 MG/DL (0.0-0.2); BILIRUBIN,TOTAL 0.6 MG/DL (0.2-1.0); TOTAL PROTEIN 6.9 GM/DL (6.4-8.2)
--- OUTSIDE RECORDS SUMMARY | 2020-09-27 16:36 | CCD ---
Author Author [facility] Organization [facility] Address Unknown Phone Unavailable Care Team Providers Care Nuclear Fuel Processing Technician Name Role Phone ALISON KNOTT MD Unavailable [...] Unavailable Unavailable ALISON KNOTT MD Unavailable Unavailable ALISNO KNOTT MD Unavailable Unavailable ALISON KNOTT MD [...] Unavailable Cayward, Jeniffer PA Unavailable Unavailable Cayward, Jenfifer PA Unavailable Unavailable Cayward, Jeniffer PA Unavailable [...] Franklin Melo MD Unavailable Unavailable Mollison, Franklin Mleo MD Unavailable Unavailable Mollison, Franklin Melo MD Unavailable Unavailable MollisonFranklin MD Unavailable Unavailable MollisonFranklin MD Unavailable Unavailable Pleskach, Shayla GAS METER PROVER Unavailable Unavailable Pleskach, Shayla GAS METER PROVER Unavailable Unavailable Pleskach, Shayla GAS METER PROVER Unavailable Unavailable Pleskach, Shayla GAS METER PROVER Unavailable Unavailable Pleskach, Shayla GAS METER PROVER Unavailable Unavailable Pleskach, Shayla GAS METER PROVER Unavailable Unavailable Pleskach, Shayla GAS METER PROVER Unavailable Unavailable Pleskach, Shayla GAS METER PROVER Unavailable Unavailable Pleskach, Shayla GAS METER PROVER Unavailable Unavailable Pleskach, Shayla GAS METER PROVER Unavailable Unavailable Pleskach, Shayla GAS METER PROVER Unavailable Unavailable Pleskach, Shyala GAS METER PROVER Unavailable Unavailable Pleskach, Shayla GAS METER PROVER Unavailable Unavailable Pleskach, Shayla GAS METER PROVER Unavailable Unavailable Pleskach, Shayla GAS METER PROVER Unavailable Unavailable Pleskach, Shayla GAS METER PROVER Unavailable Unavailable Pleskach, Shayla GAS METER PROVER Unavailable Unavailable Pleskach, Shayla GAS METER PROVER Unavailable Unavailable Pleskach, Shayla GAS METER PROVER Unavailable Unavailable Pleskach, Shayla GAS METER PROVER Unavailable Unavailable Pleskach, Shayla GAS METER PROVER Unavailable Unavailable Pleskach, Shayla GAS METER PROVER Unavailable Unavailable Pleskach, Shayla GAS METER PROVER Unavailable Unavailable Pleskach, Shayla GAS METER PROVER Unavailable Unavailable Pleskach, Shayla GAS METER PROVER Unavailable Unavailable Pleskach, Shayla GAS METER PROVER Unavailable Unavailable Pleskach, Shayla GAS METER PROVER Unavailable Unavailable Pleskach, Shayla GAS METER PROVER Unavailable Unavailable Charlebois, A Elma RPA C Unavailable Unavailable Charlebois, A Elma RPA C Unavailable Unavailable Charlebois, A Elma RPA C Unavailable Unavailable Charlebois, A Elma RPA C Unavailable Unavailable Charlebois, A Elma RPA C Unavailable Unavailable Charlebois, A Elma RPA C Unavailable Unavailable Charlebois, A Elma RPA C Unavailable Unavailable Charlebois, A Elma RPA C Unavailable Unavailable Charlebois, A Elam RPA C Unavailable Unavailable Charlebois, A Elma [...] Elma RPA C Unavailable Unavailable Pleskach, Shayla GAS METER PROVER Unavailable Unavailable Pleskach, Shayla GAS METER PROVER Unavailable Unavailable Pleskach, Shayla GAS METER PROVER Unavailable Unavailable Pleskach, Shayla GAS METER PROVER Unavailable Unavailable Pleskach, Shayla GAS METER PROVER Unavailable Unavailable Pleskach, Shayla GAS METER PROVER Unavailable Unavailable Pleskach, Shayla GAS METER PROVER Unavailable Unavailable Pleskach, Shayla GAS METER PROVER Unavailable Unavailable Pleskach, Shayla GAS METER PROVER Unavailable Unavailable Pleskach, Shayla GAS METER PROVER Unavailable Unavailable Pleskach, Shayla GAS METER PROVER Unavailable Unavailable Pleskach, Shayla GAS METER PROVER Unavailable Unavailable Pleskach, Shayla GAS METER PROVER Unavailable Unavailable Pleskach, Shayla GAS METER PROVER Unavailable Unavailable Pleskach, Shayla GAS METER PROVER Unavailable Unavailable Pleskach, Shayla GAS METER PROVER Unavailable Unavailable Pleskach, Shayla GAS METER PROVER Unavailable Unavailable Pleskach, Shayla GAS METER PROVER Unavailable Unavailable Pleskach, Shayla GAS METER PROVER Unavailable Unavailable Pleskach, Shayla GAS METER PROVER Unavailable Unavailable Pleskach, Shayla GAS METER PROVER Unavailable Unavailable Pleskach, Shayla GAS METER PROVER Unavailable Unavailable Pleskach, Shayla GAS METER PROVER Unavailable Unavailable Pleskach, Shayla GAS METER PROVER Unavailable Unavailable Pleskach, Shayla GAS METER PROVER Unavailable Unavailable Pleskach, Shayla GAS METER PROVER Unavailable Unavailable Pleskach, Shayla GAS METER PROVER Unavailable Unavailable Pleskach, Shayla GAS METER PROVER Unavailable Unavailable LETTIERE, A VICENTA PA Unavailable [...] is protected by Article 27-F of the [facility] Public Health law. If you continue you may have access to information: Regarding HIV / AIDS; Provided by facilities licensed or operated by the [facility] Office of Mental Health; or Provided by the [facility] Office for People With Developmental Disabilities. If such information is present, then the following [facility] mandated warning applies: This information has been [...] law may result in a fine or snf sentence or both. A general authorization for the release of medical or other information is NOT sufficient authorization for further disc losure. Family History Family Member Name Family Member Gender Family Member Status Date o f Status Description Data Source(s) Unknown Unknown Problem [facility] ([facility] Unknown Male Problem [facility] ([facility]) Unknown Female Problem [facility] ([facility], [facility]) Encounters Encounter Providers Location Date Indications Data Source(s ) Outpatient Attender: VICENTA briceño 09/24/2020 10:50:00 AM EST [facility] ([facility], [facility]) Outpatient Attender: Shayla Jeronimo [facility] Main Office 08/11/2020 0 7:30:00 AM EST [facility] ([facility] Outpatient Attender: Shayla Jeronimo [facility] Main Office 07/28/2020 0 3:00:00 PM EST [facility] ([facility] Outpatient Referrer: [facility]: [facility] Main Office 04/30/2020 1 2:15:00 PM EDT [facility] ([facility] Outpatient Referrer: León Mendoza 04/06/2020 12:00:00 AM [facility] Outpatient Attender: Kameron Henriquez/Jan/Tremaine/Re indl 03/24/2020 09:30:00 AM EDT MED[facility] ([facility], ) Outpatient Attender: Elma Henriquez/Jan/Percy cosme/Reinfranki 03/02/2020 09:30:00 AM EDT MED[facility] ([facility], ) Outpatient Referrer: Shayla Jeronimo [facility] 03/02/2020 05:26:0 0 AM EDT [facility] Outpatient Referrer: Shayla Jeronimo GAS METER PROVER 02/27/2020 09:12:0 0 AM EDT [facility] Outpatient Referrer: Shayla Jeronimo GAS METER PROVER 02/27/2020 09:10:0 0 AM EDT [facility] Outpatient Referrer: Shayla Jeronimo GAS METER PROVER 02/25/2020 11:32:0 0 AM EDT [facility] Outpatient Referrer: Shayla Jeronimo GAS METER PROVER 02/25/2020 11:31:0 0 AM EDT [facility] Outpatient Referrer: Shayla Jeronimo GAS METER PROVER 02/25/2020 11:27:0 0 AM EDT [facility] Outpatient Referrer: Shayla Jeronimo GAS METER PROVER 02/25/2020 11:15:0 0 AM EDT [facility] Outpatient Referrer: Shayla Jeronimo GAS METER PROVER 02/25/2020 11:09:0 0 AM EDT [facility] Outpatient Referrer: BERTO KRUGER MD 02/25/2020 11:07:0 0 AM EDT [facility] Outpatient Attender: Dejah KNOTT MDReferrer: Madhavi BALDERAS [id number] 02/25/2020 12:00:00 AM EDT [facility] Outpatient Attender: Shayla Jeronimo GAS METER PROVER Main Office 02/24/2020 0 2:00:00 PM EDT [facility] ([facility] Outpatient Referrer: BERTO KRUGER MD 02/04/2020 04:54:0 0 AM EDT [facility] Outpatient Attender: VICENTA Reyesdy Antony talleyy 01/21/2020 02:35:00 PM EDT MED[facility] ([facility], [facility]) Outpatient Attender: Madhavi BALDERAS Main Office 10/30/2019 08:00:00 AM EST [facility] ([facility] Outpatient 09/24/2019 12:00:00 AM [facility] Outpatient 09/24/2019 12:00:00 AM [facility] Outpatient Attender: Madhavi BALDERAS Main Office 09/11/2019 07:15:00 AM EST [facility] ([facility] Outpatient Attender: Jeniffer Santos: Jeniffer BALDERAS 08/28/2019 12:00:00 AM [facility] Outpatient Referrer: Jeniffer BALDERAS 08/18/2019 1 2:00:00 AM EST Radiculopathy, lumbar region [facility] Radiculopathy, lumbar region Outpatient Attender: Madhavi BALDERAS Main Office 08/14/2019 07:00:00 AM EST [facility] ([facility] Outpatient Attender: Jeniffer Santos: Jeniffer BALDERAS 08/06/2019 12:00:00 AM [facility] Outpatient Referrer: Jeniffer BALDERAS 08/06/2019 12:00:0 0 AM [facility] Outpatient Attender: Dejah KNOTT MDReferrer: Jeniffer Greer [id number] 08/05/2019 12:00:00 AM EST - 08/14/2019 11:01:40 AM EST Radiculopathy, lumbar region [facility] Radiculopathy, lumbar region Outpatient Referrer: Jeniffer BALDERAS 07/16/2019 1 2:00:00 AM EST Radiculopathy, lumbar region [facility] Radiculopathy, lumbar region Immunizations Vaccine Date Status Description Data Source(s) Tdap 01/21/2020 03:15:00 PM EDT completed M EDENT ([facility], [facility]) Medications Medication Brand Name [...] 1 2:00:00 AM EDT ORAL active MEDENT ([facility], ) cetirizine hydrochloride 10 MG Oral Tablet Eq Allergy Relief (Cetirizine) 04/08/2020 12:00:00 AM EDT ORAL active [facility] ([facility] Magnesium Hydroxide 80 MG/ML Oral Suspension Milk Of Magnesi a 03/02/2020 12:00:00 AM EDT ORAL completed [facility] ([facility], ) sodium phosphate 1500 MG Oral Tablet [OsmoPrep] Osmoprep 03/02/2020 12:00:00 AM EDT ORAL active MED[facility] ([facility], ) dexlansoprazole 60 MG Delayed Release Oral Capsule [Dexilant ] Dexilant 03/02/2020 12:00:00 AM EDT ORAL active MED[facility] ([facility], ) gabapentin 100 MG Oral Capsule Gabapentin 100 MG Oral Capsule (NEURONTIN) Gabapentin 100 MG Oral Capsule (NEURONTIN) 02/25/2020 12:00:00 AM EDT 100 mg Oral active Lumbar radiculopathy Take 1 ca psule by mouth Two Times Daily [facility] Lumbar radiculopathy Omeprazole 20 MG Delayed Release Oral Capsule Omeprazole 02/16/2020 12:00:00 AM EDT ORAL completed MED[facility] ([facility], ) Famotidine 40 MG Oral Tablet [...] type / Coverage type Policy ID Covered democrat ID Covered democrat's relationship to lindsey Policy Lindsey Plan Information [employer]BS [place] [facility] PPO 302/[id number] EXCELLUS BCBS B [id number] P [id number] EXCELLUS C [id number] Spouse [id number] SPECIAL FUNDS [facility] [id number] [facility] [id number] BS Of [facility] Maintenance Organization ([facility]) [id number] Family Dependent [id number] BS Of [facility] Maintenance Organization ([facility]) [id number] Family Dependent [id number] BCBS/[employer] Commercial [id number] Family Dependent [id number] BS Of [facility] Organization ([facility]) [id number] Family Dependent [id number] BS Of [facility] Organization ([facility]) [id number] Family Dependent [id number] BS Of [facility] Organization ([facility]) [id number] Family Dependent [id number] BS Of [facility] Maintenance Organization (HMO) [id number] Family Dependent [id number] BS Of [facility] Maintenance Organization (HMO) [id number] Family Dependent [id number] BS Of [facility] Maintenance Organization (HMO) [id number] Family Dependent [id number] BCBS/[employer] [id number] Family Dependent [id number] BS Of [facility] Maintenance Organization (HMO) [id number] Family Dependent [id number] BS Of [facility] Maintenance Organization (HMO) [id number] Family Dependent [id number] BCBS/[employer] [id number] Family Dependent [id number] BS Of [facility] Maintenance Organization (HMO) [id number] Family Dependent [id number] BS Of [facility] Maintenance Organization (HMO) [id number] Family Dependent [id number] BS Of [facility] Maintenance Organization (HMO) [id number] Family Dependent [id number] BCBS/[employer] [id number] Family Dependent [id number] BS Of [facility] Maintenance Organization (HMO) [id number] Family Dependent [id number] BCBS [place] PPO 302/307 [id number] BS Of [facility] Maintenance Organization (HMO) [id number] Family Dependent [id number] BS Of [facility] Maintenance Organization (HMO) [id number] Family Dependent [id number] BS Of [facility] Maintenance Organization (HMO) Family Dependent BS [facility] Commercial Family Dependent EXCELLUS H [id number] Spouse [id number] EXCELLUS BCBS B [id number] P [id number] [id number] SPECIAL FUNDS [id number] Empl [id number] BCBS/[employer] Family Dependent BS/W/Id#Prefix/W ALL #'S Commercial Family Depende nt EXCELLUS BCBS P UNAVAILABLE P UNAV AILABLE BCBS OF [place] 306/8 P [id number] P [id number] Problems, Conditions, and Diagnoses Code Display Name Description Problem Type Effective Dates Data Source(s) M54.16 Radiculopathy, lumbar region Radiculopathy, lumbar reg ion Diagnosis 08/05/2019 02:11:21 PM [facility] Surgeries/Procedures Procedure Description Date Indications Data Source(s) Endoscopy Upper GI Biopsy 05/18/2020 12:00:00 AM EDT MED[facility] ([facility], ) Colonoscopy W/ Poly 05/18/2020 12:00:00 AM EDT [facility] ([facility], ) X-Ray Hand Three Views 03/24/2020 12:00:00 AM EDT [facility] ([facility], ) RADEX HAND MINIMUM 3 VIEWS 03/24/2020 12:00:00 AM EDT [facility] ([facility] ) Mammogram 02/26/2020 12:00:00 AM EDT M EDENT ([facility] Order given 05/15/18 Results ID Date Data Source [id number] 09/24/2020 11:50:00 AM EST [facility] ([facility] Name Value Range Interpretation Code Description Data Louann rce(s) Supporting Document(s) Thyroid Stimulating Hormone 2.220 uIU/ML 0.358-3.740 [facility] ([facility] Free T4 0.91 ng/dL 0.76-1.46 [facility] ([facility] ID Date Data Source [id number] 09/24/2020 11:50:00 AM EST [facility] ([facility] Name Value Range Interpretation Code Description Data Louann rce(s) Supporting Document(s) Calcidiol [Mass/volume] in Serum or Plasma 29.4 ng/mL 30.0-100.0 [facility] ([facility] Rheumatoid factor [Units/volume] in Serum or Plasma Laboratory test result [facility] ([facility] ID Date Data Source [id number] 09/24/2020 11:50:00 AM EST [facility] ([facility] [...] [facility] ID Date Data Source [id number] 09/24/2020 11:50:00 AM EST [facility] ([facility] Name Value Range Interpretation Code Description Data [facility](s) Supporting Document(s) Hemoglobin A1c/Hemoglobin.total in Blood 5.8 % [facility] ([facility] <content>REFERENCE RANGES:</content><br/ ><content></content>
<content><=5.6% NORMAL</content>
<content>5.7-6.4% SUGGESTS IMPAIRED GLUCOSE METABOLISM/PREDIABETIC</content>
<content>>= 6.5% ABNORMAL</content>
<content></content> Estimated Average Glucose 120 mg/dL 60-110 [facility] ([facility] ID Date Data Source [id number] 09/24/2020 11:50:00 AM EST [facility] ([facility] Name Value Range Interpretation Code Description [facility] Supporting Document(s) Glucose, Fasting 73 mg/dL [...] Little GFR Left</content>
<content>ESRD GFR <15 on LOGISTICS SPECIALIST</content>
<content></content> Chloride Level 108 meq/L 98-107 MED[facility] [...] [facility] ID Date Data Source [id number] 05/18/2020 02:01:00 PM EDT [facility] ([facility], ) Name Value Range Interpretation Code Description Data Louann rce(s) Supporting Document(s) Surgical pathology study Laboratory test result MED[facility] ([facility], ) <content>FINAL DIAGNOSIS</content>
< content></content>
<content>A [...] 05/21/2020 1243</content>
<content></content> ID Date Data Source [id number] 05/13/2020 12:00:00 PM EDT [facility] Name Value Range Interpretation Code Description Data Louann rce(s) Supporting Document(s) SARS coronavirus 2 RNA [facility] This lab was ordered by [facility] and reported by [facility]. ID Date Data Source [id number] 04/28/2020 07:54:00 AM EDT [facility] ([facility] Name Value Range Interpretation Code Description Data Louann rce(s) Supporting Document(s) Appearance, Urine Laboratory test result [facility] ([facility] PH,Urine 5.0 units 5.0-9.0 [facility] ([facility] Color, Urine Laboratory test result [facility] ([facility] Specific [place] Urine Auto 1.028 1.002-1.035 [facility] ([facility] [...] [facility] ID Date Data Source [id number] 04/28/2020 06:50:00 AM EDT [facility] ([facility] Name Value Range Interpretation Code Description Data Louann rce(s) Supporting Document(s) Lipoprotein lipase [Enzymatic activity/volume] in Serum or Plasm a 70 U/L 73-393 [facility] ([facility] ID Date Data Source [id number] 04/28/2020 06:50:00 AM EDT [facility] ([facility] [...] Little GFR Left</content>
<content>ESRD GFR <15 on LOGISTICS SPECIALIST</content>
<content></content> Sodium Level 141 meq/L 136-145 MED[facility] [...] [facility] ID Date Data Source [id number] 04/28/2020 06:50:00 AM EDT [facility] ([facility] [...] [facility] ID Date Data Source [id number] 04/28/2020 06:50:00 AM EDT [facility] ([facility] Name Value Range Interpretation Code Description Data Louann rce(s) Supporting Document(s) Lipoprotein lipase [Enzymatic activity/volume] in Serum or Plasm a 70 U/L 73-393 [facility] ([facility] ID Date Data Source [id number] 04/28/2020 06:50:00 AM EDT [facility] ([facility] [...] Little GFR Left</content>
<content>ESRD GFR <15 on LOGISTICS SPECIALIST</content>
<content></content> Sodium Level 141 meq/L 136-145 MED[facility] [...] [facility] ID Date Data Source [id number] 04/28/2020 06:50:00 AM EDT [facility] ([facility] [...] [facility] ID Date Data Source [id number] 04/28/2020 06:50:00 AM EDT [facility] ([facility] [...] % 36.0-66.0 [facility] ([facility] Alfalfa % 6.9 % 0.0-5.0 [facility] ([facility] [...] 10 1.5-5.0 [facility] ([facility] Alfalfa # 0.5 10 0.0-0.8 [facility] ([facility] Eos # 0.1 10 0.0-0.5 [facility] ([facility] Baso # 0.0 10 0.0-0.2 [facility] ([facility] ID Date Data Source [id number] 03/10/2020 12:00:00 AM EDT [facility] Yolanda Ferro Patient Name: RONALD [id number] Date of : 1970[place] [address] Date of Exam: 03/10/2020PH#: Fax: [phone] EXAM: [...] mammogram was read with the assistance of [employer] Technologies[employer]ina [employer], an FDAapproved computer aided detection system for [...] rce(s) Supporting Document(s) ID Date Data Source [id number] 03/10/2020 12:00:00 AM EDT [facility] Yolanda Ferro Patient Name: RONALD [id number] Date of : 1970[place] [address] Date of Exam: 03/10/2020#: Fax: [phone] EXAM: [...] rce(s) Supporting Document(s) ID Date Data Source [id number] 02/27/2020 01:12:47 PM EDT [facility] Name Value Range Interpretation Code Description Data Louann rce(s) Supporting Document(s) Progress Note [facility] HMYYHb6xNbCAOgYk63/EJZfoIIBba6MeBEzjPQm8XKynLPWiC5KlUXM4gZ9nXQR5CNwNIyRmOeLqCtQ4 lbm [file] [employer] SPECIAL ED TEACHER/0RFfmyyNMTabRDPFISw5hXSPhVnKQ+aNretBS4W [file] hgSy8AoD81oscbAi17F/brokerage coordinator+WPu5NYEteVGFTZ2B6qdNUiIyPMhs61h9g+BdpyABsx/aiVJMsgvMZJln kH5OZ12oWEhtYWcatq3bRBmgkme8CBQxcukzu9SneW 59kAdSHx1X0kC6y4OrAIr8Thf0z97ZWt+9IkCg/FQIdFqUFOPJLWU1e5Wx7EBLXhXF3r1uPe5xMYs8Wl Ya2InlfZQmvjtpS8CzjoA3B7405zCEzrNbrtk/clfc1uRtUvw1pVElqs0JlPCRLACQE983yTNHerKY4y kEJ1nHKclLEUf2D8UT6n2DylAWc5yU7VLjdalYquVZ uQ9Cu5DEnVK17dmqoVJ7fMJhUSuFOjkvXKLiC8NfB5fJAj9b46sbZbVB1tTLiKBQdFA1joOJLe4Zy/r+ 35OnHHMFMwZuBWUcCk7Ke1pqpBo4t0x6hS4dyfUL1qypDT3o1AS+t2K7m+OZlGZyNo6JgTmY4fYE1rO/ ljqC/HYG3xEEKdFh490xAg9l9v6XCwBrUABM/ocWW0 Drzbnsjrdq7C27jjsTQ0LbyVB1epk60gweUXwFqPUZNNQRk2sYUFFG09Iy9clgS0CMTXfsqhriIBgniU M9oHlCg42jmVhTC/W/5BgtwRv8xEElT2DoT9Idwfzhj3A4Gy4PIBmu1P1VFqr4bfu6JcI+9V6xIU8eE+ MM7y5pETB9uubfIhniMbUzUr9nyfFrP04mx4afL+RX Wl/gD24lInHklFfCibi2KC/fiDEGPDATbavSwBiwAXydfd0cvCTDVD2BhMTQ6ISVDWBZRDuZuMUwmrdh 4AOQAAAAAA+AVQRgAAAAAAACgjAAAAAAAAlBEAAAAAAADKCAAAAAAAAGUEAAAAAACAMgIAAAAAAEAZAQ AAAAAAoIwAAAAAAABQRgAAAAAAACgjAAAAAAAAlBEA AAAAAADKCAAAAAAAAGUEAAAAAACAMgIAAAAAAEAZAQAAAAAAjFZGt/R7jUdqYdvgsT8364oevnGCeBGD [file] ICAgICAgICAgICAgICAgICAgICAgICAgICAgICAgICAgICAgICAgICAgICAgICAgICAgICAgICAgICAg ICAgICAgICAgICANCiAgICAgICAgICAgICAgICAgICAgICAgICAgICAgICAgICAgICAgICAgICAgICAg ICAgICAgICAgICAgICAgICAgICAgICAgICAgICAgIC AgICAgICAgICAgICAgICAgICAgICANCiAgICAgICAgICAgICAgICAgICAgICAgICAgICAgICAgICAgIC AgICAgICAgICAgICAgICAgICAgICAgICAgICAgICAgICAgICAgICAgICAgICAgICAgICAgICAgICAgIC AgICANCiAgICAgICAgICAgICAgICAgICAgICAgICAg ICAgICAgICAgICAgICAgICAgICAgICAgICAgICAgICAgICAgICAgICAgICAgICAgICAgICAgICAgICAg ICAgICAgICAgICAgICANCiAgICAgICAgICAgICAgICAgICAgICAgICAgICAgICAgICAgICAgICAgICAg ICAgICAgICAgICAgICAgICAgICAgICAgICAgICAgIC AgICAgICAgICAgICAgICAgICAgICAgICANCiAgICAgICAgICAgICAgICAgICAgICAgICAgICAgICAgIC AgICAgICAgICAgICAgICAgICAgICAgICAgICAgICAgICAgICAgICAgICAgICAgICAgICAgICAgICAgIC AgICAgICANCiAgICAgICAgICAgICAgICAgICAgICAg ICAgICAgICAgICAgICAgICAgICAgICAgICAgICAgICAgICAgICAgICAgICAgICAgICAgICAgICAgICAg ICAgICAgICAgICAgICAgICANCiAgICAgICAgICAgICAgICAgICAgICAgICAgICAgICAgICAgICAgICAg ICAgICAgICAgICAgICAgICAgICAgICAgICAgICAgIC AgICAgICAgICAgICAgICAgICAgICAgICAgICANCiAgICAgICAgICAgICAgICAgICAgICAgICAgICAgIC AgICAgICAgICAgICAgICAgICAgICAgICAgICAgICAgICAgICAgICAgICAgICAgICAgICAgICAgICAgIC AgICAgICAgICANCiAgICAgICAgICAgICAgICAgICAg ICAgICAgICAgICAgICAgICAgICAgICAgICAgICAgICAgICAgICAgICAgICAgICAgICAgICAgICAgICAg ICAgICAgICAgICAgICAgICAgICANCjw/yYSkJ2eyfYXszbP0N7mwNl0KWw2IDK7bg9PsWUBuSGfpncEo ImlFWnEoCQCaKziFLta7YLfqPX0XaFAoR0KtL5WhXO pxET2ZGBUtEMHpwKGzBVHcTWZhOjU4NWXpDEkrVE8XxQSeHUwfZNAhMIAuByGaLNMtLWBsQIOxXFHrXG OCZAIsCDEyCiEqHXYrXJFgML6ALBPtP444quRdLe7DLk1DSzUiFI9dyq4NPgemVOHsXhbTRbt4TNdcNQ 1BmCIdbLVlVOQqMUBZDxVaZ1zui2GlXjmwXWEGKXlx KQ5Hz1TyoAPgSEn+Bp5JKJ0gl0VcTKhjENAxLH5bkf5EYKyLPrUoS9GmgVyiAQHmc0rdNNRjAP0imIWt CIF3IXe9j2JkfyUOZDUvWFbtqlOeaoowAMJfPJVbNv9lHl8hOCKpXYWjNxKbKZHFGN8SYOHgWLXgjFBq IEBcVBVQII6TFFonZND0SSMqqmUpvVZvEMqxPW4BXN JlbnQgMzcgMCBSDQo+Fa2YCL3yj1SwVTngAYZgJP8pyx7RWEaSEyWyC7I4zFBrP2I4RRknUi3VSVScHQ UdDbBnZMBMQAbcJO7AOD3fceX7BS7SqSSyKAHjCBXddZOoRKc1S56ekFCrERbnGZ7TRCY+Tamiko+Pg0KIC KfOLTdUQBjEnWkUDUIPlFmF6JbF8UHt6LwW2DfUD65 tNhygcOnRFkcQW5HGG4xEDItQQJNUS3LwQVaeM2mpqIvQqSnWKRDUhNbK40iyAMzFCPaNHC0ZHGwWx4Z DPIqM6JjdoVlrHdyuiMwPXXzIBIWDV6FPSjvspYqsODxdXvuBZ78iLjhRE7MCi7TFrQsXV0kfs4MmPVs Vk1UMBX0EO7IOAVuFAWfTJZoZJP8EDHpBsUcHPxiAE VxWBHbZTJ3UINnNKVyWX8OZhRwKFYzUHY1AKMqQMToEALgsd7EPKImXHE4QmX9TSZqZIAuVGXoQGfxPE DlPYRqQMO3DDUsQGQtSH2MSvKdFFRjXJK6UaLeULVdCSQdfp6LUGWuYTIrBjGfYuSlRTKdFCDdJZerER BdYCN0QeBqJGFgBLEwKM1NGtXpZJWcMLM9JzMcVTFj VXIjhd5SJNFiJWXwDno5YVNbQADgPVIfDNslWYUnRSQ2MVsoBJTmOWBaJW0KSjEpYPFrJVV6XhQeOSBu WYVkek0AKEFhTCVdFOG7QIBbXGVnLLKqBGyuYBZzSZR2Vmk0XCHeQGKcEM2ROkUpHXTeOXO4JXLiOSJm JGCgyc3JJVMgQIMaBMO5OxBbXJIgMBIyKAcjXOSdKO D2TPhcAPLlTTDsQN4ZPiLrPRMcMXE7ZBTnIZGaSZPwzz2RISGaIGVxYpQ3EGSqFINqSNMdKLvrFXYeKR S9SzAyJIYnBYKrNN1NDyCeTODoMTlrTBVvVRTbFMRysn9SPHVcLERkFCD0ZbZmGXFhSLYbSLzkOEWnGZ H2PGlcTUCgKSQsWV4PKuGuMUFhVqTjWCTkKBQkCCZq tc5UVICyITKqBYPdGvJgIUQxWWXsAMbsGTJtCLWaXMQ8DZAuRFXmBH5DVvNyACQkJaX6YUAgKRQyEKMv hh0MAJIsAAPkRFx3QCMfHZPhZPBtJKafSOPuANVzWGt1NPPnIQUsEW0KXjBkILJbWeUxRkigOTEhAJIg qf7EBXQhEKGcXyF6MDVsNAJwXYPyPUgbNOYxTPUtVt T8BCGfBAMkOU9OTiOvUAYvWbBpZWAjXNQnKPYsfk2VAKIzIYXtTkN0KUFbWGAyMYCnOTjlIEXeXTI6QQ G7YEEqJXUcKL4VEpZzABDrUXG8GOeyLJGsKOWcyw2GMGBnLSV1BvL6UITbVICeGTGfLOayWBXqSTI1SF DeDJScDLAwFC9YSwPnESUcMXr3AQQqDHMmVRVptm7V FXOnDWD3Ajx9DcXpZBTjZWAbRXy1qrKgdQAjFGm0QY9JK0YjrsLiSMFCBd2Hk160VVZ2ZVObZy2FA7ii Lb2lMYUjBKAMOp3SXQj3PVTkA3M0AXQpGHT8PdRrPvN5EJTtBEZtZAwvYmO6KIj+FJmvXyV3PVSdRdZ1 JyayZSZ7QMVlMeN0SNFjIZHmFjqyIW2hEQBBHm4+OLvttRIhrUsbBPLIMzW8WFetKDlgFOONPb2S ID Date Data Source [id number] 02/26/2020 03:20:00 PM EDT [facility] ([facility] Name Value Range Interpretation Code Description Data Louann rce(s) Supporting Document(s) Occult Blood Laboratory test result [facility] ([facility] OCCULT BLOOD 1 NEGATIVE ID Date Data Source [id number] 02/25/2020 03:08:00 PM EDT [facility] ([facility] [...] Little GFR Left</content>
<content>ESRD GFR <15 on LOGISTICS SPECIALIST</content>
<content></content> Potassium Serum 3.8 meq/L 3.5-5.1 [facility] [...] [facility] Ast/Sgot 10 U/L 7-37 [facility] ([facility] Alkaline Phosphatase 61 U/L 45-117 [facility] ([facility] Bilirubin,Total 0.4 mg/dL 0.2-1.0 [facility] ([facility] Albumin/Globulin Ratio 1.2 1.2-2.2 [facility] ([facility] Albumin 3.6 GM/DL 3.2-5.2 [facility] ([facility] Total Protein 6.5 GM/DL 6.4-8.2 [facility] ([facility] ID Date Data Source [id number] 02/25/2020 03:08:00 PM EDT [facility] ([facility] Fermin [...] % 0.0-1.0 [facility] ([facility] Alfalfa % 6.7 % 0.0-5.0 [facility] ([facility] Nucleated Red Blood Cell % 0.0 % 0-0 MED E[facility] ([facility] Neutrophils # 4.0 10 1.5-8.5 [facility] ([facility] Immature Granulocyte % 0.2 % 0-3.0 [facility] ([facility] Alfalfa # 0.6 10 0.0-0.8 [facility] ([facility] Lymph # 3.5 10 1.5-5.0 [facility] ([facility] Baso # 0.0 10 0.0-0.2 [facility] ([facility] Eos # 0.1 10 0.0-0.5 [facility] ([facility] ID Date Data Source [id number] 02/25/2020 12:00:00 AM EDT [facility] Yolanda Ferro Patient Name: RONALD [id number] Date of : 1970[place] [address] Date of Exam: 02/25/2020#: Fax: [phone] EXAM: [...] criteria for genetic testing established by National [facility] and [place] [employer] guidelines. She should pursue arisk [...] mammogram was read with the assistance of [employer]ina [employer], an FDAapproved computer aided detection system for [...] rce(s) Supporting Document(s) ID Date Data Source [id number] 02/25/2020 12:00:00 AM EDT [facility] Shayla Phani, Optics Technical Officer Patient Name: RONALD [id number] Date of : 1970[place] [address] Date of Exam: 02/25/2020PH#: Fax: [phone] EXAM: FINGER(S) X-RAYCLINICAL INFORMATION: Pain.Right hand, 4th digit. These images were obtained using digitalradiography.There is no acute fracture or destructive osseous lesion.LEIGH Cooley/Claudia you for referring GEORGE MCKENZIE to our office. Electronically Signed - OLINDA MOSES DO 02/26/20 10:09 Name Value Range Interpretation Code Description Data Louann rce(s) Supporting Document(s) ID Date Data Source [id number] 02/25/2020 12:00:00 AM EDT [facility] Imaging Shayla Phani, Optics Technical Officer Patient Name: KIKE [id number] Date of : 1970[place] [address] Date of Exam: 02/25/2020PH#: Fax: [phone] EXAM: [...] rce(s) Supporting Document(s) ID Date Data Source [id number] 09/11/2019 06:52:00 AM EST [facility] ([facility] Name Value Range Interpretation Code Description Data Louann rce(s) Supporting Document(s) Magnesium [Mass/volume] in Serum or Plasma 1.9 mg/dL 1.8-2.4 [facility] ([facility] Calcitriol [Mass/volume] in Serum or Plasma 50.7 pg/mL 19.9-79.3 [facility] ([facility] ID Date Data Source [id number] 09/11/2019 06:52:00 AM EST [facility] ([facility] Name Value Range Interpretation Code Description Data Louann rce(s) Supporting Document(s) Glucose, Fasting 82 mg/dL 70-100 [facility] ([facility] Blood Urea Nitrogen 15 mg/dL [...] Little GFR Left</content>
<content>ESRD GFR <15 on LOGISTICS SPECIALIST</content>
<content></content> Creatinine For GFR 0.69 mg/dL 0.55-1.30 [...] [facility] ID Date Data Source [id number] 09/11/2019 06:52:00 AM EST [facility] ([facility]in [...] [facility] ID Date Data Source [id number] 09/11/2019 06:52:00 AM EST [facility] ([facility] Fermin [...] % 0.0-3.0 [facility] ([facility] Alfalfa % 5.4 % 0.0-5.0 [facility] (Maxine ford [...] 10 1.5-5.0 [facility] ([facility] Alfalfa # 0.4 10 0.0-0.8 [facility] ([facility] Baso # 0.0 10 0.0-0.2 [facility] ([facility] ID Date Data Source [id number] 09/11/2019 06:52:00 AM EST [facility] ([facility] Name Value Range Interpretation Code Description Data Louann rce(s) Supporting Document(s) Antinuclear Antibodies Direct Laboratory test result [facility] ([facility] Performed at: [address] [place] [address] [id number] Wood Cutter: Sloan Calvillo PhD, Phone: [phone] Performed at: [address] [id number] Wood Cutter: Allison Cruz MD, Phone: [phone] Performed at: [place] [id number] Wood Cutter: Alessandra Brito MD, Phone: [phone] ID Date Data Source [id number] 09/11/2019 06:52:00 AM EST [facility] ([facility] Name Value Range Interpretation Code Description Data Louann rce(s) Supporting Document(s) HLA-B27 [Presence] by Probe and target amplification m ethod Laboratory test result [facility] ([facility] HLA-B*27 Negative B27 allele interpretation for all loci based on IMGT/HLA database version 3.35 This test was developed and its performance characteristics determined by [facility]. It has not been cleared or approved by the Food and Drug Administration. [facility] CLIA ID Number [id number] . This test was performed using PCR [...] [facility] ID Date Data Source [id number] 09/11/2019 06:52:00 AM EST [facility] ([facility] Name Value Range Interpretation Code Description Data Louann rce(s) Supporting Document(s) Magnesium [Mass/volume] in Serum or Plasma 1.9 mg/dL 1.8-2.4 [facility] ([facility] ID Date Data Source [id number] 09/11/2019 06:52:00 AM EST [facility] ([facility] Name Value Range Interpretation Code Description Data Louann rce(s) Supporting Document(s) Rheumatoid factor [Units/volume] in Serum or Plasma < 10.0 IU/ml [facility] ([facility] ID Date Data Source [id number] 09/09/2019 02:49:22 PM EST [facility] XR SPINE LUMBAR 4-MORE VIEWS [id number] RESULTInterpreted by:Nader Malin MDEXAM: Lumbosacral Spine 4 [...] rce(s) Supporting Document(s) ID Date Data Source [id number] 09/05/2019 04:00:00 PM EST [facility] (Maxine Fermin [...] <content>Troponin I Reference Interval f or Siemens [place] LOCI:</content>
<content></content>
<content>99th Percentile= 0.00-0.045 ng/ml</content>
<content></content>
<content>Risk Stratification:</content>
<content><= 0.10 ng/ml Decreased Risk for Adverse Clinical</content>
<content>Events.</content>
<content>0.10-1.50 ng/ml Increased Risk for Adverse Clinical</content>
<content>Events. Evaluation of additional</content>
<content>criterion and/or repeat testing in 2-6</content>
<content>hours is suggested to rule out myocardial</content>
<content>damage.</content>
<content>>= 1.50 ng/ml Indicative of Myocardial Injury.</content>
<content></content> ID Date Data Source [id number] 09/05/2019 10:30:00 AM EST [facility] ([facility]in [...] [facility] ID Date Data Source [id number] 09/05/2019 10:30:00 AM EST [facility] ([facility]in [...] Little GFR Left</content>
<content>ESRD GFR <15 on LOGISTICS SPECIALIST</content>
<content></content> Anion Gap 6 meq/L 8-16 [facility] ([facility] Chloride Level 109 meq/L 98-107 [facility] ([facility] Carbon Dioxide Level 28 meq/L 21-32 [facility] ([facility]mero [facility] Calcium Level 8.9 mg/dL 8.5-10.1 [facility] ([facility] ID Date Data Source [id number] 09/05/2019 10:30:00 AM EST [facility] ([facility]ine Fermin [...] [facility] Albumin/Globulin Ratio 1.15 1.00-1.93 SD [facility] ([facility] ID Date Data Source [id number] 09/05/2019 10:30:00 AM EST [facility] ([facility]ine Fermin [...] <content>Troponin I Reference Interval f or Siemens [place] LOCI:</content>
<content></content>
<content>99th Percentile= 0.00-0.045 ng/ml</content>
<content></content>
<content>Risk Stratification:</content>
<content><= 0.10 ng/ml Decreased Risk for Adverse Clinical</content>
<content>Events.</content>
<content>0.10-1.50 ng/ml Increased Risk for Adverse Clinical</content>
<content>Events. Evaluation of additional</content>
<content>criterion and/or repeat testing in 2-6</content>
<content>hours is suggested to rule out myocardial</content>
<content>damage.</content>
<content>>= 1.50 ng/ml Indicative of Myocardial Injury.</content>
<content></content> ID Date Data Source [id number] 09/05/2019 10:30:00 AM EST [facility] ([facility] Name Value Range Interpretation Code Description Data Louann rce(s) Supporting Document(s) aPTT in Platelet poor plasma by Coagulation assay 30.8 s 25.0-38. 4 [facility] ([facility] ID Date Data Source [id number] 09/05/2019 10:30:00 AM EST [facility] ([facility]ine Fermin [...] MYOCARDIAL INFARCTION 2.5-3.5 ID Date Data Source [id number] 09/05/2019 10:30:00 AM EST [facility] ([facility] Fermin [...] % 36.0-66.0 [facility] ([facility] Alfalfa % 6.5 % 0.0-5.0 [facility] ([facility] Eos % 1.7 % 0.0-3.0 [facility] ([facility] Immature Granulocyte % 0.4 % 0-3.0 [facility] ([facility] Nucleated Red Blood Cell % 0.0 % 0-0 [facility] ([facility] Baso % 0.4 % 0.0-1.0 [facility] ([facility] Alfalfa # 0.6 10 0.0-0.8 [facility] ([facility] Lymph # 3.8 10 1.5-5.0 [facility] ([facility] Neutrophils # 4.4 10 1.5-8.5 [facility] ([facility] Baso # 0.0 10 0.0-0.2 [facility] ([facility] Eos # 0.2 10 0.0-0.5 [facility] ([facility] ID Date Data Source [id number] 08/19/2019 09:27:01 AM [facility] MR LUMBAR SPINE WITHOUT CONTRAST [id number] NAL RESULTInterpreted by:Cecilio Damon MDRUST BONE AND [...] rce(s) Supporting Document(s) ID Date Data Source [id number] 08/11/2019 07:32:15 AM EST [facility] Name Value Range Interpretation Code Description Data Louann rce(s) Supporting Document(s) Progress Note [facility] ENEZHw9kTgZNLfPr70/BXUjiLICxw8EfJYgfLAv9ICfaSZBsO4ScTMJ4lU5qUUC1SOmVOwDzXUkoCvOr lbm [file] Cj4+MTzhbSVotDnjYHXSSkx4XQG9IGdaHEEKVd2Z Procedure Social History Code Duration Value Status Description Data Source(s ) Alcohol intake 08/05/2019 12:00:00 AM EST Current drinker of al cohol (finding) completed Current drinker of alcohol (finding) [facility] Cigarette pack-years 08/05/2019 12:00:00 AM EST UNK [facility] Cigarettes smoked current (pack per day) - Reported 08/05/20 19 12:00:00 AM EST UNK [facility] Smoking 08/05/2019 12:00:00 AM EST Current every day smoker co mpleted Current every day smoker [facility] Vital Signs ID Date Data Source UNK Name Value Range Interpretation Code Description Data Source(s) Body weight 242.00 [lb_av] 242.00 [lb_av] [facility] T ([facility], [facility]) Body temperature 98.0 [degF] 98.0 [degF] [facility] ([facility]) Oxygen saturation in Arterial blood by Pulse oximetry 97 % 97 % [facility] ([facility] Respiratory rate 16 /min 16 /min [facility] ( [facility]) Heart rate 59 /min 59 /min [facility], [facility]) Diastolic blood pressure 58 mm[Hg] 58 mm[Hg] [facility] ([facility]) Systolic blood pressure 85 mm[Hg] 85 mm[Hg] M EDENT ([facility], [facility]) [place] body weight 115 [lb_av] 115 [lb_av] MEDEN [...] k g/m2 [facility] ([facility] [place] body weight 115 [lb_av] 115 [lb_av] MED[facility] [...] Body temperature 96.8 [degF] 96.8 [degF] [facility] ([facility] Heart rate 61 /min 61 /min [facility] ([facility] Diastolic blood pressure 73 mm[Hg] 73 mm[Hg] [facility] ([facility] Systolic blood pressure 123 mm[Hg] 123 mm[Hg] [facility] Body weight 108.864 kg 108.864 kg [facility] ([facility]) Body mass index (BMI) [Ratio] 39.9 kg/m2 39.9 k g/m2 [facility] ([facility]) Body weight 240.00 [lb_av] 240.00 [lb_av] MED[facility] T ([facility]) Body height 65 [in_i] 65 [in_i] [facility] ([facility]) 5'5" Heart rate 67 /min 67 /min [facility] ([facility]) Diastolic blood pressure 73 mm[Hg] 73 mm[Hg] [facility] ([facility]) Systolic blood pressure 94 mm[Hg] 94 mm[Hg] [facility] ([facility]) Body mass index (BMI) [Ratio] 41.7 kg/m2 41.7 k g/m2 [facility] ([facility] [place] body weight 115 [lb_av] 115 [lb_av] MEDEN [...] Systolic blood pressure 97 mm[Hg] 97 mm[Hg] [facility] Body weight 106.766 kg 106.766 kg [facility] ([facility]) Body mass index (BMI) [Ratio] 39.2 kg/m2 39.2 k g/m2 [facility] ([facility]) Body weight 235.38 [lb_av] 235.38 [lb_av] [facility] T ([facility]) Body height 65 [in_i] 65 [in_i] [facility] ([facility]) 5'5" Heart rate 53 /min 53 /min [facility] ([facility]) Diastolic blood pressure 74 mm[Hg] 74 mm[Hg] [facility] ([facility]) Systolic blood pressure 104 mm[Hg] 104 mm[Hg] [facility] ([facility]) Body weight 77.112 kg 77.112 kg [facility] ([facility]) Body mass index (BMI) [Ratio] 28.3 kg/m2 28.3 k g/m2 [facility] ([facility]) Body weight 170.00 [lb_av] 170.00 [lb_av] [facility] T ([facility]) Body height 65 [in_i] 65 [in_i] [facility] ([facility]) 5'5" Body temperature 97.5 [degF] 97.5 [degF] [facility] Body weight 109.771 kg 109.771 kg [facility] ([facility]) Body mass index (BMI) [Ratio] 40.9 kg/m2 40.9 k g/m2 [facility] ([facility]) Body weight 242.00 [lb_av] 242.00 [lb_av] [facility] T ([facility]) Body height 64.5 [in_i] 64.5 [in_i] [facility] ([facility]) 5'4.50" Diastolic blood pressure 62 mm[Hg] 62 mm[Hg] [facility] ([facility]) Systolic blood pressure 112 mm[Hg] 112 mm[Hg] M EDENT ([facility]) Body mass index (BMI) [Ratio] 40.6 kg/m2 40.6 k g/m2 [facility] ([facility] [place] body weight 120 [lb_av] 120 [lb_av] MEDEN [...] [Ratio] 39.5 kg/m2 39.5 k g/m2 [facility] ([facility], [facility]) Body height 64 [in_i] 64 [in_i] [facility] ([facility]) 5'4" Body weight 230.00 [lb_av] 230.00 [lb_av] [facility] T ([facility]) Body temperature 98.2 [degF] 98.2 [degF] [facility] ([facility]) Oxygen saturation in Arterial blood by Pulse oximetry 95 % 95 % [facility] ([facility]) Respiratory rate 12 /min 12 /min [facility] ( [facility]) Heart rate 74 /min 74 /min [facility] ([facility]) Diastolic blood pressure 74 mm[Hg] 74 mm[Hg] [facility] ([facility]) Systolic blood pressure 98 mm[Hg] 98 mm[Hg] M [facility] ([facility]) Body mass index (BMI) [Ratio] 41.2 kg/m2 [...] 247.25 [lb_av] 247.25 [lb_av] [facility] ([facility] [...] blood pressure 107 mm[Hg] 107 mm[Hg] [facility] ID Date Data Source [id number] 09/20/2019 10:19:50 AM [facility] Name Value Range Interpretation Code Description Data Source(s) WEIGHT RECORDED 243 lb 243 lb [facility] Body height Measured 64.25 in 64.25 in [facility] Patient Treatment Plan of Care Planned Activity Planned Date Details Description Data Source (s) gabapentin 100 MG Oral Capsule 02/25/2020 12:00:00 AM [facility]
[2020-09-27 17:15] VITALS: BP 109/55
[2020-09-27] MEDS ORDERED: REGL5TAB2 PO (17:43)
--- NOTE | 2020-09-27 20:02 | ECGEPIP ---
[facility] - ED Test Date: 2020-09-27 Pat Name: GEORGE MCKENZIE Department: Room: - Gender: Female Audio Visual Aide: JOSEFINA : 1970 Requested By: Tee Pearson Order Number: [id number] Reading MD: Daksha Harvey Measurements Intervals [place] Rate: 50 P: 53 DC: 199 QRS: 9 QRSD: 98 T: 18 QT: 445 QTc: 407 Interpretive Statements SINUS BRADYCARDIA WITH SINUS ARRHYTHMIA SIMILAR 09/05/19 Electronically Signed on 09-27-2020 20:01:59 EST by Daksha Harvey
== END 2020-09-27 18:02 | disposition home or self-care (01) ==
LOC: M ED 15:20
DX: K21.9 Gastro-esophageal reflux disease without esophagitis (principal); E78.5 Hyperlipidemia, unspecified; Z79.899 Other long term (current) drug therapy; Z88.6 Allergy status to analgesic agent; Z88.8 Allergy status to other drugs, medicaments and biological substances

== ENCOUNTER → 2020-10-14 | Outpatient (CLI) | payer BC ==
[~2020-10-14] MED LIST changes: +FAMO40TA3 PO; +REGL5TAB2 PO
--- NOTE | 2020-10-14 14:23 | REP ---
INDICATION: EPIGASTRIC PAIN. COMPARISON: None. TECHNIQUE/RADIOTRACER AND DOSE: 1.1 mCi of Technetium-99m sulfur colloid was ingested in two scrambled eggs and 6 ounces of water and sequential anterior and posterior images are acquired for an 89-minute imaging observation period. Regions of interest are drawn around the stomach to plot gastric emptying. FINDINGS: Expected T1/2 is 90 minutes. Twenty-nine% emptying is observed in this patient during the 89-minute imaging observation period, for a calculated T1/2 in this patient of 161 minutes. IMPRESSION: Delayed gastric emptying. <Electronically signed by Harmeet Doshi > 10/14/20 [id number]
== END ==
LOC: M RAD 12:03
PROVIDERS: ATTEND Nurse Practitioner Family
DX: R10.13 Epigastric pain (principal)
CPT/HCPCS: 78264; A9541

== ENCOUNTER 2020-10-17 21:20 | Emergency (ER) | payer BC ==
[~2020-10-17] VITALS: Ht 162.6 cm; Wt 110.3 kg
[~2020-10-17 21:20] MED LIST changes: -FAMO40TA3 PO
[2020-10-17] MEDS ORDERED: FAMO40TA3 PO (21:37)
[2020-10-17] MEDS ORDERED: ASPIRIN 81 MG CHEW TABLET PO ONE (21:45)
[2020-10-17] MEDS ORDERED: GI COCKTAIL 50ML BTL(HYOSCYAMINE/MAALOX/LIDOCAINE VISCOUS)(1:3:1) PO ONE (21:45)
[2020-10-17 22:02] LABS: BASO # 0.1 10^3/uL (0.0-0.2); BASO % 0.6 % (0.0-1.0); EOS # 0.1 10^3/uL (0.0-0.5); EOS % 1.3 % (0.0-3.0); HEMATOCRIT 36.5 % (36.0-47.0); HEMOGLOBIN 11.5 g/dl (12.0-15.5); LYMPH # 4.1 10^3/uL (1.5-5.0); LYMPH % 49.2 % (24.0-44.0); MEAN CORPUSCULAR HEMOGLOBIN 30.5 pg (27.0-33.0); MEAN CORPUSCULAR HGB CONC 31.5 g/dl (32.0-36.5); MEAN CORPUSCULAR VOLUME 96.8 fl (80.0-96.0); MONO # 0.6 10^3/uL (0.0-0.8); MONO % 6.9 % (0.0-5.0); NEUTROPHILS # 3.5 10^3/uL (1.5-8.5); NEUTROPHILS % 41.6 % (36.0-66.0); PLATELET COUNT, AUTOMATED 163 10^3/uL (150-450); RED BLOOD COUNT 3.77 10^6/uL (4.00-5.40); WHITE BLOOD COUNT 8.3 10^3/uL (4.0-10.0)
[2020-10-17 22:13] LABS: INR 0.82; PROTHROMBIN TIME 11.5 SECONDS (12.5-14.3)
--- NOTE | 2020-10-17 22:25 | REPVR ---
PROCEDURE INFORMATION: Exam: XR Chest, 1 View Exam date and time: 10/17/2020 10:17 PM Age: 50 years old Clinical indication: Chest pain; Type not specified TECHNIQUE: Imaging protocol: XR of the chest Views: 1 view. COMPARISON: CA PORTABLE CHEST X-RAY 09/27/2020 3:30 PM FINDINGS: Lungs: Unremarkable. No consolidation. Pleural spaces: Unremarkable. No pleural effusion. No pneumothorax. Heart/Mediastinum: Unremarkable. No cardiomegaly. Bones/joints: Unremarkable. Soft tissues: There are moderately generous overlying soft tissues. IMPRESSION: Negative chest without change from 09/27/2020. Electronically signed by: Prateek Oconnor On 10/17/2020 22:24:39 PM
[2020-10-17 22:31] LABS: ALBUMIN 3.5 GM/DL (3.2-5.2); ALT/SGPT 20 U/L (12-78); BILIRUBIN,DIRECT < 0.1 MG/DL (0.0-0.2); BILIRUBIN,TOTAL 0.1 MG/DL (0.2-1.0); BLOOD UREA NITROGEN 14 MG/DL (7-18); CALCIUM LEVEL 9.1 MG/DL (8.5-10.1); CARBON DIOXIDE LEVEL 29 MEQ/L (21-32); CHLORIDE LEVEL 110 MEQ/L (98-107); CK-MB VALUE MASS < 1.0 NG/ML (<3.6); CPK CREATINE PHOSPHOKINASE 50 U/L (26-192); CREATININE FOR GFR 0.74 MG/DL (0.55-1.30); GLOMERULAR FILTRATION RATE > 60.0 (>51); GLUCOSE, FASTING 95 MG/DL (70-100); LIPASE 130 U/L (73-393); NT-PRO BNP 32 PG/ML (<125); SODIUM LEVEL 144 MEQ/L (136-145); TOTAL PROTEIN 6.4 GM/DL (6.4-8.2); TROPONIN I < 0.02 NG/ML (< 0.10)
[2020-10-17 23:15] VITALS: BP 93/52
--- NOTE | 2020-10-19 08:42 | ECGEPIP ---
[facility] - ED Test Date: 2020-10-17 Pat Name: GEORGE MCKENZIE Department: Room: - Gender: Female Welt Drawer: DIMA : 1970 Requested By: JACE Tapia Order Number: [id number] Reading MD: Daksha Harvey Measurements Intervals [place] Rate: 55 P: 49 [place]: 213 QRS: 16 QRSD: 87 T: 27 QT: 424 QTc: 409 Interpretive Statements SINUS BRADYCARDIA WITH FIRST DEGREE AV BLOCK SIMILAR 09/27/20 Electronically Signed on 10-19-2020 8:41:35 EST by Daksha Harvey
== END 2020-10-17 23:26 | disposition home or self-care (01) ==
LOC: M ED 21:20
DX: K21.00 Gastro-esophageal reflux disease with esophagitis, without bleeding (principal); Z79.899 Other long term (current) drug therapy; Z88.5 Allergy status to narcotic agent; Z88.8 Allergy status to other drugs, medicaments and biological substances

== ENCOUNTER 2021-03-12 12:18 | Emergency (ER) | payer BC ==
[~2021-03-12] VITALS: Ht 162.6 cm; Wt 109.6 kg
[~2021-03-12 12:18] MED LIST changes: -AMIT10TA PO; +AMIT10TA7 PO; +FAMO40TA3 PO; +GABA-283 PO; -GABA-845 PO; +OMEP40CA4; +OMEP40CA4 PO; -OMEP40CA97; -OMEP40CA97 PO
[2021-03-12] MEDS ORDERED: IBUP200C33 PO (12:28)
[2021-03-12 12:58] LABS: BILIRUBIN, URINE MANUAL NEGATIVE (NEGATIVE); GLUCOSE, URINE (UA) MANUAL NEGATIVE (NEGATIVE); KETONE, URINE MANUAL NEGATIVE (NEGATIVE); UROBILINOGEN, URINE MANUAL NORMAL (NORMAL)
[2021-03-12 13:00] LABS: RBC, URINE 0-1 /hpf (0-3); SQUAMOUS EPITHELIAL CELL URINE SMALL AMOUNT /hpf (SMALL AMT)
[2021-03-12 13:01] LABS: BACTERIA, URINE SMALL AMOUNT; HYALINE CAST, URINE NONE SEEN /lpf (0-1)
[2021-03-12] MEDS ORDERED: ACETAMINOPHEN 325 MG TAB PO ONE (13:10)
[2021-03-12] MEDS ORDERED: methocarbamoL 500 MG TAB PO ONE (13:10)
[2021-03-12] MEDS ORDERED: LIDOCAINE 5% (LIDODERM) PATCH TD ONE (13:15)
[2021-03-12] MEDS ORDERED: LIDO5DIS41 TOP (14:48)
[2021-03-12] MEDS ORDERED: METH-1164 PO (14:49)
[2021-03-12 14:57] VITALS: BP 107/71
[2021-03-12] MEDS ORDERED: **NOTE PATIENT COMMENT** MISC XX SCH (21:00)
== END 2021-03-12 15:01 | disposition home or self-care (01) ==
LOC: M ED 12:18
DX: G89.29 Other chronic pain (principal); M54.5 Low back pain; E78.5 Hyperlipidemia, unspecified; E07.9 Disorder of thyroid, unspecified; K21.9 Gastro-esophageal reflux disease without esophagitis; Z79.899 Other long term (current) drug therapy; Z88.5 Allergy status to narcotic agent; Z88.8 Allergy status to other drugs, medicaments and biological substances

== ENCOUNTER 2021-04-18 11:06 | Emergency (ER) | payer BC ==
[~2021-04-18] VITALS: Ht 162.6 cm; Wt 110.8 kg
[~2021-04-18 11:06] MED LIST changes: +IBUP200C33 PO; +LIDO5DIS41 TOP; +METH-1164 PO
[2021-04-18 11:36] LABS: BASO % 0.4 % (0.0-1.0); EOS # 0.1 10^3/uL (0.0-0.5); HEMATOCRIT 36.9 % (36.0-47.0); LYMPH # 2.9 10^3/uL (1.5-5.0); LYMPH % 38.7 % (24.0-44.0); MEAN CORPUSCULAR HEMOGLOBIN 31.2 pg (27.0-33.0); MEAN CORPUSCULAR HGB CONC 32.5 g/dl (32.0-36.5); MEAN CORPUSCULAR VOLUME 95.8 fl (80.0-96.0); MONO # 0.5 10^3/uL (0.0-0.8); MONO % 6.3 % (2.0-8.0); NEUTROPHILS # 3.9 10^3/uL (1.5-8.5); NEUTROPHILS % 53.1 % (36.0-66.0); PLATELET COUNT, AUTOMATED 179 10^3/uL (150-450); RED BLOOD COUNT 3.85 10^6/uL (4.00-5.40); WHITE BLOOD COUNT 7.4 10^3/uL (4.0-10.0)
--- NOTE | 2021-04-18 12:04 | REP ---
INDICATION: CHEST PAIN. COMPARISON: Portable chest dated 10/17/2020. TECHNIQUE: Portable AP chest with the patient sitting. FINDINGS: The lung tafoya are clear. Cardiac size is normal. The dillan, mediastinum and skeletal structures are unremarkable. IMPRESSION: Essentially negative portable chest There is no interval change. <Electronically signed by Caleb Morales > 04/18/21 1200
[2021-04-18 12:12] LABS: BLOOD UREA NITROGEN 15 MG/DL (7-18); CALCIUM LEVEL 8.7 MG/DL (8.5-10.1); CARBON DIOXIDE LEVEL 26 MEQ/L (21-32); CHLORIDE LEVEL 110 MEQ/L (98-107); CK-MB VALUE MASS 1.4 NG/ML (<3.6); CPK CREATINE PHOSPHOKINASE 51 U/L (26-192); CREATININE FOR GFR 0.64 MG/DL (0.55-1.30); GLOMERULAR FILTRATION RATE > 60.0 (>51); GLUCOSE, FASTING 92 MG/DL (70-100); MB/CK RELATIVE INDEX 2.75 (< OR =4); POTASSIUM SERUM 4.3 MEQ/L (3.5-5.1); SODIUM LEVEL 140 MEQ/L (136-145); TROPONIN I < 0.02 NG/ML (< 0.10)
[2021-04-18 14:51] LABS: CK-MB VALUE MASS < 1.0 NG/ML (<3.6); CPK CREATINE PHOSPHOKINASE 48 U/L (26-192); MB/CK RELATIVE INDEX 2.08 (< OR =4); TROPONIN I < 0.02 NG/ML (< 0.10)
[2021-04-18 15:15] VITALS: BP 142/77
--- NOTE | 2021-04-18 19:21 | ECGEPIP ---
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
--- NOTE | 2021-04-18 19:24 | ECGEPIP ---
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
== END 2021-04-18 15:28 | disposition home or self-care (01) ==
LOC: M ED 11:06
DX: R07.89 Other chest pain (principal); R06.02 Shortness of breath; E78.5 Hyperlipidemia, unspecified; K21.9 Gastro-esophageal reflux disease without esophagitis; Z79.899 Other long term (current) drug therapy; Z88.5 Allergy status to narcotic agent; Z88.8 Allergy status to other drugs, medicaments and biological substances; F17.210 Nicotine dependence, cigarettes, uncomplicated

== ENCOUNTER → 2021-04-27 | Outpatient (CLI) | payer BC ==
[2021-04-27 15:02] LABS: ALBUMIN 3.6 GM/DL (3.2-5.2); ALT/SGPT 17 U/L (12-78); BILIRUBIN,TOTAL 0.3 MG/DL (0.2-1.0); BLOOD UREA NITROGEN 12 MG/DL (7-18); CALCIUM LEVEL 8.7 MG/DL (8.5-10.1); CARBON DIOXIDE LEVEL 27 MEQ/L (21-32); CHLORIDE LEVEL 109 MEQ/L (98-107); CHOLESTEROL LEVEL 263 MG/DL (<200); CHOLESTEROL RISK RATIO 5.844 (<5); CREATININE FOR GFR 0.71 MG/DL (0.55-1.30); GLOMERULAR FILTRATION RATE > 60.0 (>51); GLUCOSE, FASTING 81 MG/DL (70-100); HDL CHOLESTEROL 45 MG/DL (>40); LDL CHOLESTEROL 198 MG/DL (<100); NON-HDL-C 218 MG/DL; POTASSIUM SERUM 4.9 MEQ/L (3.5-5.1); SODIUM LEVEL 141 MEQ/L (136-145); TOTAL PROTEIN 6.4 GM/DL (6.4-8.2); TRIGLYCERIDES LEVEL 100 MG/DL (<150)
--- NOTE | 2021-04-27 20:42 | REP ---
INDICATION: MIXED HYPERLIPIDEMIA COMPARISON: 04/18/2021 TECHNIQUE: PA and lateral. FINDINGS: The mediastinum and cardiac silhouette are normal. The lung tafoya are clear and without acute consolidation, effusion, or pneumothorax. The skeletal structures are intact and normal. IMPRESSION: No acute cardiopulmonary process. <Electronically signed by Patrick Franklin > 04/27/212037
== END ==
LOC: M PLALAB 11:38
PROVIDERS: ATTEND Nurse Practitioner Family
DX: E78.2 Mixed hyperlipidemia (principal); Z11.2 Encounter for screening for other bacterial diseases

== ENCOUNTER → 2021-05-26 | Outpatient (CLI) | payer BC | LOC: M WHC 15:16 | PROVIDERS: ATTEND Nurse Practitioner Family | DX: Z12.31 Encounter for screening mammogram for malignant neoplasm of breast (principal) ==

== ENCOUNTER → 2021-07-06 | Outpatient (CLI) | payer BC ==
--- NOTE | 2021-07-06 11:57 | REPVR ---
PROCEDURE INFORMATION: Exam: MR Lumbar Spine Without Contrast Exam date and time: 07/06/2021 8:45 AM Age: 50 years old Clinical indication: Low back pain; Additional info: Radiculopathy TECHNIQUE: Imaging protocol: Multiplanar magnetic resonance images of the lumbar spine without intravenous contrast. COMPARISON: MRI-Spine, L.S. without con 02/16/2017 11:42 AM FINDINGS: Vertebrae: No acute compression fracture is seen. There are chronic bilateral pars defects at L5. This is resulting in 6 mm of anterolisthesis of L5 on S1. Spinal cord: The conus medullaris terminates at the L1 level. There is no evidence of arachnoiditis or cauda equina compression. L1-L2: No significant disc disease. No significant spinal stenosis or neural foraminal narrowing. L2-L3: Mild facet arthropathy is present. There is no spinal canal or neural foraminal stenosis. L3-L4: There is mild diffuse circumferential disc bulging and facet arthropathy. Disc bulging is most pronounced in the left neural foramina. This is causing mild/moderate left neural foraminal narrowing and minimal right neural foraminal narrowing. There is no significant spinal canal stenosis. L4-L5: There is minimal diffuse circumferential disc bulging and moderate facet arthropathy. This is causing mild bilateral neural foraminal narrowing. There is no significant spinal canal stenosis. L5-S1: There is moderate diffuse circumferential disc bulging and uncovering of the posterior disc due to spondylolisthesis. There is no spinal canal stenosis. Mild right and moderate/severe left neural foraminal narrowing is present, similar to the prior exam. Soft tissues: Subcutaneous edema is present in the lower back. IMPRESSION: 1. Chronic L5 pars defects causing 6 mm of anterolisthesis of L5 on S1, as well as moderate/severe left and mild right neural foraminal narrowing. 2. Chronic findings as discussed above. Electronically signed by: Elfego Chapman On 07/06/2021 11:57:35 AM
== END ==
LOC: M PLAIMG 07:42
PROVIDERS: ATTEND Anesthesiology Pain Medicine
DX: M54.50 Low back pain, unspecified (principal)

== ENCOUNTER → 2021-07-06 | Outpatient (CLI) | payer BC ==
--- NOTE | 2021-07-06 14:20 | REP ---
INDICATION: PAIN. COMPARISON: None. TECHNIQUE: Four views FINDINGS: No acute fracture or destructive osseous lesion. The mortise is intact. IMPRESSION: No acute osseous abnormality. <Electronically signed by Rodríguez Aleman > 07/06/21 3512
== END ==
LOC: M WUC 12:20
PROVIDERS: ATTEND Nurse Practitioner Family
DX: M25.571 Pain in right ankle and joints of right foot (principal)

== ENCOUNTER → 2022-01-25 | Outpatient (CLI) | payer BC | LOC: M RAD 14:46 | PROVIDERS: ATTEND Nurse Practitioner Family | DX: Z12.2 Encounter for screening for malignant neoplasm of respiratory organs (principal); F17.210 Nicotine dependence, cigarettes, uncomplicated ==

== ENCOUNTER → 2022-02-15 | Outpatient (CLI) | payer BC ==
[2022-02-15 07:24] LABS: ALBUMIN 3.4 GM/DL (3.2-5.2); ALT/SGPT 19 U/L (12-78); BILIRUBIN,TOTAL 0.4 MG/DL (0.2-1.0); BLOOD UREA NITROGEN 19 MG/DL (7-18); CARBON DIOXIDE LEVEL 27 MEQ/L (21-32); CHLORIDE LEVEL 110 MEQ/L (98-107); CHOLESTEROL LEVEL 167 MG/DL (<200); CHOLESTEROL RISK RATIO 3.553 (<5); CREATININE FOR GFR 0.68 MG/DL (0.55-1.30); GLOMERULAR FILTRATION RATE > 60.0 (>51); GLUCOSE, FASTING 90 MG/DL (70-100); HDL CHOLESTEROL 47 MG/DL (>40); LDL CHOLESTEROL 103 MG/DL (<100); NON-HDL-C 120 MG/DL; POTASSIUM SERUM 4.5 MEQ/L (3.5-5.1); SODIUM LEVEL 142 MEQ/L (136-145); TOTAL PROTEIN 6.4 GM/DL (6.4-8.2); TRIGLYCERIDES LEVEL 83 MG/DL (<150)
[2022-02-15 07:34] LABS: TOTAL 25(OH) VITAMIN D 21.9 NG/ML (30.0-100.0)
== END ==
LOC: M LAB 06:17
PROVIDERS: ATTEND Nurse Practitioner Family
DX: E78.2 Mixed hyperlipidemia (principal); E55.9 Vitamin D deficiency, unspecified

== ENCOUNTER → 2022-05-11 | Outpatient (CLI) | payer BC ==
[2022-05-11 15:36] LABS: BASO % 0.5 % (0.0-1.0); EOS # 0.1 10^3/uL (0.0-0.5); EOS % 1.6 % (0.0-3.0); HEMATOCRIT 38.1 % (36.0-47.0); HEMOGLOBIN 12.7 g/dl (12.0-15.5); LYMPH # 3.5 10^3/uL (1.5-5.0); LYMPH % 47.1 % (24.0-44.0); MEAN CORPUSCULAR HEMOGLOBIN 32.4 pg (27.0-33.0); MEAN CORPUSCULAR HGB CONC 33.3 g/dl (32.0-36.5); MEAN CORPUSCULAR VOLUME 97.2 fl (80.0-96.0); MONO # 0.5 10^3/uL (0.0-0.8); MONO % 6.9 % (2.0-8.0); NEUTROPHILS # 3.2 10^3/uL (1.5-8.5); NEUTROPHILS % 43.5 % (36.0-66.0); PLATELET COUNT, AUTOMATED 157 10^3/uL (150-450); RED BLOOD COUNT 3.92 10^6/uL (4.00-5.40); WHITE BLOOD COUNT 7.4 10^3/uL (4.0-10.0)
[2022-05-11 16:06] LABS: ERYTHROCYTE SEDIMENTATION RATE 11 mm/hr (0-30)
[2022-05-11 16:13] LABS: ALBUMIN 3.5 GM/DL (3.2-5.2); ALT/SGPT 21 U/L (12-78); BILIRUBIN,TOTAL 0.3 MG/DL (0.2-1.0); BLOOD UREA NITROGEN 12 MG/DL (7-18); CALCIUM LEVEL 8.9 MG/DL (8.5-10.1); CARBON DIOXIDE LEVEL 28 MEQ/L (21-32); CHLORIDE LEVEL 111 MEQ/L (98-107); GLOMERULAR FILTRATION RATE > 60.0 (>51); GLUCOSE, FASTING 82 MG/DL (70-100); POTASSIUM SERUM 4.3 MEQ/L (3.5-5.1); SODIUM LEVEL 142 MEQ/L (136-145); TOTAL PROTEIN 6.7 GM/DL (6.4-8.2)
== END ==
LOC: M LAB 14:53
PROVIDERS: ATTEND Nurse Practitioner Family
DX: R51.9 Headache, unspecified (principal); R07.89 Other chest pain

== ENCOUNTER 2022-05-13 09:24 | Emergency (ER) | payer BC ==
[~2022-05-13] VITALS: Ht 162.6 cm; Wt 112.0 kg
[2022-05-13] MEDS ORDERED: RIZA10TA64 PO (09:33)
[2022-05-13] MEDS ORDERED: OMEP40CA5 (09:33)
[2022-05-13 13:34] LABS: BASO % 0.4 % (0.0-1.0); EOS # 0.1 10^3/uL (0.0-0.5); EOS % 1.9 % (0.0-3.0); HEMATOCRIT 37.3 % (36.0-47.0); HEMOGLOBIN 12.3 g/dl (12.0-15.5); LYMPH % 42.8 % (24.0-44.0); MEAN CORPUSCULAR HEMOGLOBIN 32.1 pg (27.0-33.0); MEAN CORPUSCULAR VOLUME 97.4 fl (80.0-96.0); MONO # 0.4 10^3/uL (0.0-0.8); MONO % 6.3 % (2.0-8.0); NEUTROPHILS # 3.4 10^3/uL (1.5-8.5); NEUTROPHILS % 48.2 % (36.0-66.0); PLATELET COUNT, AUTOMATED 146 10^3/uL (150-450); RED BLOOD COUNT 3.83 10^6/uL (4.00-5.40)
[2022-05-13] MEDS ORDERED: METOCLOPRAMIDE INJ 10MG/2ML VIAL (J2765 PER 1) IV ONE (13:40)
[2022-05-13] MEDS ORDERED: diphenhydrAMINE 50MG/ML VIAL (J1200) IV ONE (13:40)
[2022-05-13] MEDS ORDERED: NS 1,000 ML IV ONE (13:40)
[2022-05-13] MEDS ORDERED: KETOROLAC 30 MG/ML 1ML VIAL IV ONE (13:40)
[2022-05-13 13:54] LABS: ERYTHROCYTE SEDIMENTATION RATE 10 mm/hr (0-30)
[2022-05-13 14:12] LABS: BLOOD UREA NITROGEN 11 MG/DL (7-18); CARBON DIOXIDE LEVEL 28 MEQ/L (21-32); CHLORIDE LEVEL 110 MEQ/L (98-107); CREATININE FOR GFR 0.69 MG/DL (0.55-1.30); GLOMERULAR FILTRATION RATE > 60.0 (>51); GLUCOSE, FASTING 86 MG/DL (70-100); POTASSIUM SERUM 4.5 MEQ/L (3.5-5.1); SODIUM LEVEL 141 MEQ/L (136-145)
[2022-05-13] MEDS ORDERED: PROCHLORPERAZINE 10MG 2ML VIAL IV ONE (15:20)
[2022-05-13 16:11] VITALS: BP 112/68
== END 2022-05-13 16:38 | disposition home or self-care (01) ==
LOC: M ED 09:24
DX: R51.9 Headache, unspecified (principal); Z88.5 Allergy status to narcotic agent; Z88.8 Allergy status to other drugs, medicaments and biological substances; Z79.899 Other long term (current) drug therapy
CPT/HCPCS: 70450; 80048; 83605; 84443; 85025; 85652; 86140; 87486; 87581; 87633; 87798; 96374; 96375; 99284; J0780; J1200; J1885; J2765

== ENCOUNTER → 2022-05-19 | Outpatient (CLI) | payer BC ==
[~2022-05-19] MED LIST changes: +OMEP40CA5; +RIZA10TA64 PO
== END ==
LOC: M PLAIMG 14:42
PROVIDERS: ATTEND Nurse Practitioner Family
DX: R51.9 Headache, unspecified (principal); L72.9 Follicular cyst of the skin and subcutaneous tissue, unspecified

== ENCOUNTER → 2022-07-04 | Outpatient (CLI) | payer BC ==
[2022-07-04 15:05] LABS: ALBUMIN 3.7 GM/DL (3.2-5.2); BILIRUBIN,DIRECT 0.1 MG/DL (0.0-0.2); BILIRUBIN,TOTAL 0.5 MG/DL (0.2-1.0); CHOLESTEROL RISK RATIO 2.73 (<5); TOTAL PROTEIN 6.7 GM/DL (6.4-8.2)
== END ==
LOC: M LAB 13:27
PROVIDERS: ATTEND Internal Medicine Cardiovascular Disease
DX: E78.00 Pure hypercholesterolemia, unspecified (principal)

== ENCOUNTER → 2022-10-16 | Outpatient (CLI) | payer OTHER | LOC: M LABSMTC 10:47 | PROVIDERS: ATTEND Anesthesiology Pain Medicine | DX: Z01.818 Encounter for other preprocedural examination (principal); M54.16 Radiculopathy, lumbar region ==

== ENCOUNTER 2022-12-23 09:01 | Emergency (ER) | payer OTHER ==
[~2022-12-23] VITALS: Ht 165.1 cm; Wt 114.5 kg
[2022-12-23 09:02] VITALS: BP 118/78
== END 2022-12-23 10:34 | disposition left against medical advice (07) ==
LOC: M ED 10:30
DX: R10.9 Unspecified abdominal pain (principal); Z53.21 Procedure and treatment not carried out due to patient leaving prior to being seen by health care provider

== ENCOUNTER → 2022-12-25 | Outpatient (CLI) | payer OTHER ==
[2022-12-25 18:47] LABS: BASO # 0.1 10^3/uL (0.0-0.2); BASO % 0.6 % (0.0-1.0); EOS # 0.1 10^3/uL (0.0-0.5); EOS % 1.3 % (0.0-3.0); HEMATOCRIT 37.3 % (36.0-47.0); HEMOGLOBIN 12.2 g/dl (12.0-15.5); LYMPH # 3.4 10^3/uL (1.5-5.0); LYMPH % 38.1 % (24.0-44.0); MEAN CORPUSCULAR HEMOGLOBIN 31.9 pg (27.0-33.0); MEAN CORPUSCULAR HGB CONC 32.7 g/dl (32.0-36.5); MEAN CORPUSCULAR VOLUME 97.6 fl (80.0-96.0); MONO # 0.6 10^3/uL (0.0-0.8); MONO % 6.7 % (2.0-8.0); NEUTROPHILS # 4.8 10^3/uL (1.5-8.5); PLATELET COUNT, AUTOMATED 165 10^3/uL (150-450); RED BLOOD COUNT 3.82 10^6/uL (4.00-5.40)
[2022-12-25 19:14] LABS: LIPASE 33 U/L (12-53)
[2022-12-25 19:15] LABS: AMYLASE 31 U/L (30-118)
[2022-12-25 19:16] LABS: ALBUMIN 3.8 G/DL (3.2-5.2); ALKALINE PHOSPHATASE 58 U/L (46-116); ALT/SGPT < 9 U/L (7.0-40); AST/SGOT 11 U/L (<34); BILIRUBIN,TOTAL 0.3 MG/DL (0.3-1.2); BLOOD UREA NITROGEN 12 MG/DL (9-23); CALCIUM LEVEL 8.8 MG/DL (8.5-10.1); CARBON DIOXIDE LEVEL 29 MMOL/L (20-31); CHLORIDE LEVEL 106 MMOL/L (98-107); CREATININE FOR GFR 0.74 MG/DL (0.55-1.30); GLOMERULAR FILTRATION RATE > 60.0 (>51); GLUCOSE, FASTING 69 MG/DL (60-100); POTASSIUM SERUM 4.5 MMOL/L (3.5-5.1); SODIUM LEVEL 141 MMOL/L (136-145); TOTAL PROTEIN 6.4 G/DL (5.7-8.2)
== END ==
LOC: M PLALAB 16:04
PROVIDERS: ATTEND Registered Nurse
DX: R10.10 Upper abdominal pain, unspecified (principal)

== ENCOUNTER → 2023-01-10 | Outpatient (CLI) | payer OTHER ==
[~2023-01-10] MED LIST changes: +GASTROGRAFIN SOLUTION 30ML As Ordered ONE; +ISOVUE-370 76% 100ML VIAL As Ordered ONE
== END ==
LOC: M RAD 15:53
PROVIDERS: ATTEND Registered Nurse
DX: R10.10 Upper abdominal pain, unspecified (principal); R14.0 Abdominal distension (gaseous); K57.30 Diverticulosis of large intestine without perforation or abscess without bleeding; Z90.710 Acquired absence of both cervix and uterus
CPT/HCPCS: 74177; Q9963; Q9967

== ENCOUNTER → 2023-02-19 | Outpatient (CLI) | payer OTHER ==
[~2023-02-19] MED LIST changes: -GASTROGRAFIN SOLUTION 30ML As Ordered ONE; -ISOVUE-370 76% 100ML VIAL As Ordered ONE
== END ==
LOC: M RAD 14:28
PROVIDERS: ATTEND Nurse Practitioner Family
DX: Z12.2 Encounter for screening for malignant neoplasm of respiratory organs (principal); F17.210 Nicotine dependence, cigarettes, uncomplicated

== ENCOUNTER → 2023-07-22 | Outpatient (CLI) | payer OTHER ==
[~2023-07-22] MED LIST changes: +CETI-24; -GABA-283 PO; +GABA-284 PO; +SERT25TA85 PO
[2023-07-22 09:34] LABS: ALBUMIN 3.5 G/DL (3.2-5.2); ALKALINE PHOSPHATASE 51 U/L (46-116); ALT/SGPT 17 U/L (7.0-40); AST/SGOT 9 U/L (<34); BILIRUBIN,TOTAL 0.4 MG/DL (0.3-1.2); BLOOD UREA NITROGEN 16 MG/DL (9-23); CALCIUM LEVEL 8.8 MG/DL (8.5-10.1); CARBON DIOXIDE LEVEL 26 MMOL/L (20-31); CHLORIDE LEVEL 109 MMOL/L (98-107); CHOLESTEROL LEVEL 250 MG/DL (<200); CHOLESTEROL RISK RATIO 5.58 (<5); CREATININE FOR GFR 0.66 MG/DL (0.55-1.30); GLOMERULAR FILTRATION RATE > 60.0 (>51); GLUCOSE, FASTING 95 MG/DL (60-100); HDL CHOLESTEROL 44.8 MG/DL (>40); NON-HDL-C 205.2 MG/DL; POTASSIUM SERUM 4.6 MMOL/L (3.5-5.1); SODIUM LEVEL 141 MMOL/L (136-145); TOTAL PROTEIN 6.2 G/DL (5.7-8.2); TRIGLYCERIDES LEVEL 116 MG/DL (<150)
== END ==
LOC: M LAB 08:46
PROVIDERS: ATTEND Nurse Practitioner Family
DX: E78.2 Mixed hyperlipidemia (principal)

== ENCOUNTER → 2023-10-24 | Outpatient (CLI) | payer OTHER | LOC: M PLAIMG 14:56 | PROVIDERS: ATTEND Nurse Practitioner Family | DX: M19.012 Primary osteoarthritis, left shoulder (principal) ==

== ENCOUNTER → 2023-11-01 | Outpatient (REF) | payer OTHER ==
[2023-11-01 16:09] LABS: APPEARANCE, URINE CLEAR (CLEAR); BACTERIA, URINE AUTO NEGATIVE (NEGATIVE); BILIRUBIN, URINE AUTO NEGATIVE (NEGATIVE); BLOOD, URINE BLOOD NEGATIVE (NEGATIVE); COLOR, URINE YELLOW (YELLOW); GLUCOSE, URINE (UA) AUTO NEGATIVE (NEGATIVE); KETONE, URINE AUTO NEGATIVE (NEGATIVE); LEUKOCYTE ESTERASE, URINE AUTO NEGATIVE (NEGATIVE); MUCUS, URINE SMALL (NEGATIVE); NITRITE, URINE AUTO NEGATIVE (NEGATIVE); PROTEIN, URINE AUTO NEGATIVE (NEGATIVE); RBC, URINE AUTO 3 /HPF (0-3); SPECIFIC GRAVITY URINE AUTO 1.023 (1.002-1.035); SQUAMOUS EPITHELIAL CELL UR AU 1 /HPF (0-6); UROBILINOGEN, URINE AUTO 0.2 mg/dL (0.0-2.0); WBC, URINE AUTO 1 /HPF (0-3)
== END ==
LOC: M LAB REF 15:22
PROVIDERS: ATTEND Nurse Practitioner Family
DX: N39.42 Incontinence without sensory awareness (principal)

== ENCOUNTER → 2024-01-11 | Outpatient (CLI) | payer OTHER ==
[2024-01-11 17:46] LABS: HEMATOCRIT 37.4 % (36.0-47.0); HEMOGLOBIN 12.4 g/dl (12.0-15.5); MEAN CORPUSCULAR HEMOGLOBIN 31.3 pg (27.0-33.0); MEAN CORPUSCULAR HGB CONC 33.2 g/dl (32.0-36.5); MEAN CORPUSCULAR VOLUME 94.4 fl (80.0-96.0); PLATELET COUNT, AUTOMATED 149 10^3/uL (150-450); RED BLOOD COUNT 3.96 10^6/uL (4.00-5.40); WHITE BLOOD COUNT 9.5 10^3/uL (4.0-10.0)
[2024-01-11 17:47] LABS: ALBUMIN 3.5 G/DL (3.2-5.2); ALKALINE PHOSPHATASE 59 U/L (46-116); ALT/SGPT 14 U/L (7.0-40); AST/SGOT 9 U/L (<34); BILIRUBIN,TOTAL 0.5 MG/DL (0.3-1.2); BLOOD UREA NITROGEN 13 MG/DL (9-23); CALCIUM LEVEL 8.9 MG/DL (8.5-10.1); CARBON DIOXIDE LEVEL 27 MMOL/L (20-31); CHLORIDE LEVEL 107 MMOL/L (98-107); CREATININE FOR GFR 0.71 MG/DL (0.55-1.30); GLOMERULAR FILTRATION RATE > 60.0 (>51); GLUCOSE, FASTING 75 MG/DL (60-100); POTASSIUM SERUM 4.4 MMOL/L (3.5-5.1); SODIUM LEVEL 140 MMOL/L (136-145); TOTAL PROTEIN 6.3 G/DL (5.7-8.2)
[2024-01-11 17:48] LABS: URIC ACID 3.8 MG/DL (3.1-7.8)
[2024-01-11 19:08] LABS: LYMPHOCYTES 41 % (16-44); MONOCYTES 8 % (0-5); NEUTROPHILS 48 % (28-66); PLASMA CELL 3 % (0-0)
[2024-01-11 19:09] LABS: PLATELET ESTIMATE NORMAL (NORMAL)
[2024-01-11 19:15] LABS: ERYTHROCYTE SEDIMENTATION RATE 10 mm/hr (0-30)
== END ==
LOC: M PLALAB 14:45
PROVIDERS: ATTEND Nurse Practitioner Family
DX: M79.671 Pain in right foot (principal); M79.672 Pain in left foot

== ENCOUNTER → 2024-02-07 | Outpatient (CLI) | payer OTHER | LOC: M PLAIMG 14:01 | PROVIDERS: ATTEND Nurse Practitioner Family | DX: M79.672 Pain in left foot (principal) ==

== ENCOUNTER 2024-02-16 21:13 | Emergency (ER) | payer OTHER ==
[~2024-02-16] VITALS: Ht 162.6 cm; Wt 112.9 kg
[~2024-02-16 21:13] MED LIST changes: +ONDA-282 PO; +ONDA-284 PO; -ONDA4TAB6 PO; -ONDA8TAB8 PO
[2024-02-16] MEDS ORDERED: vitamin d3 PO (21:21)
[2024-02-16] MEDS ORDERED: TOLT2CAP4 (21:21)
[2024-02-16] MEDS ORDERED: TUSSIN PO (21:22)
[2024-02-16] MEDS ORDERED: IBUP-1022 PO (21:22)
[2024-02-16 22:51] LABS: BASO # 0.1 10^3/uL (0.0-0.2); BASO % 0.6 % (0.0-1.0); EOS # 0.1 10^3/uL (0.0-0.5); EOS % 1.2 % (0.0-3.0); HEMATOCRIT 38.2 % (36.0-47.0); HEMOGLOBIN 12.5 g/dl (12.0-15.5); LYMPH # 2.9 10^3/uL (1.5-5.0); LYMPH % 34.5 % (24.0-44.0); MEAN CORPUSCULAR HEMOGLOBIN 31.1 pg (27.0-33.0); MEAN CORPUSCULAR HGB CONC 32.7 g/dl (32.0-36.5); MONO # 0.7 10^3/uL (0.0-0.8); MONO % 7.9 % (2.0-8.0); NEUTROPHILS # 4.6 10^3/uL (1.5-8.5); NEUTROPHILS % 55.6 % (36.0-66.0); PLATELET COUNT, AUTOMATED 153 10^3/uL (150-450); RED BLOOD COUNT 4.02 10^6/uL (4.00-5.40); WHITE BLOOD COUNT 8.4 10^3/uL (4.0-10.0)
[2024-02-16 23:19] LABS: FREE T4 1.12 NG/DL (0.89-1.76); THYROID STIMULATING HORMONE 2.367 uIU/ML (0.55-4.78)
[2024-02-16 23:28] LABS: BLOOD UREA NITROGEN 11 MG/DL (9-23); CARBON DIOXIDE LEVEL 26 MMOL/L (20-31); CHLORIDE LEVEL 107 MMOL/L (98-107); CK-MB VALUE MASS < 1.0 NG/ML (<3.6); CPK CREATINE PHOSPHOKINASE 144 U/L (34-145); CREATININE FOR GFR 0.61 MG/DL (0.55-1.30); GLOMERULAR FILTRATION RATE > 60.0 (>51); GLUCOSE, FASTING 96 MG/DL (60-100); MB/CK RELATIVE INDEX 0.69 (< OR =4); POTASSIUM SERUM 4.9 MMOL/L (3.5-5.1); SODIUM LEVEL 140 MMOL/L (136-145)
[2024-02-16] MEDS: methylPREDNISolone 125MG 2ML VIAL IV ONE (23:42)
[2024-02-16] MEDS: ALBUTEROL SULFATE 2.5MG/0.5ML INH NEB SOLN NEB ONE (23:48)
[2024-02-17] MEDS ORDERED: ISOVUE-370 76% 100ML VIAL As Ordered ONE (00:18)
[2024-02-17 01:00] VITALS: BP 108/58; TEMP 98.1; O2SAT 94
[2024-02-17 01:02] VITALS: O2SAT 96
[2024-02-17] MEDS ORDERED: PROA1AER2 INH (01:10)
[2024-02-17] MEDS ORDERED: PRED20TA PO (01:10)
== END 2024-02-17 01:35 | disposition home or self-care (01) ==
LOC: M ED 21:13
DX: J20.9 Acute bronchitis, unspecified (principal); E78.5 Hyperlipidemia, unspecified; K21.9 Gastro-esophageal reflux disease without esophagitis; M54.9 Dorsalgia, unspecified; F17.200 Nicotine dependence, unspecified, uncomplicated; Z79.899 Other long term (current) drug therapy; Z88.5 Allergy status to narcotic agent; Z88.8 Allergy status to other drugs, medicaments and biological substances
CPT/HCPCS: 71045; 71275; 80048; 82550; 82553; 84439; 84443; 84484; 85025; 85379; 87486; 87581; 87633; 87798; 93005; 94640; 96374; 99284; J2919; Q9967

== ENCOUNTER 2024-04-25 12:19 | Inpatient (IN) | payer OTHER ==
[~2024-04-25] VITALS: Ht 165.1 cm; Wt 114.2 kg
[~2024-04-25 12:19] MED LIST changes: -CETI-24; +CETI-24 PO; +IBUP-1022 PO; +OMEP40CA5 PO; +PRED20TA PO; +PROA1AER2 INH; +SERT50TA29 PO; +TOLT2CAP4 PO; +TUSSIN PO; +vitamin d3 PO
[2024-04-25 13:53] LABS: BASO % 0.6 % (0.0-1.0); EOS # 0.1 10^3/uL (0.0-0.5); EOS % 1.4 % (0.0-3.0); HEMATOCRIT 35.8 % (36.0-47.0); HEMOGLOBIN 11.8 g/dl (12.0-15.5); LYMPH # 2.4 10^3/uL (1.5-5.0); LYMPH % 37.8 % (24.0-44.0); MEAN CORPUSCULAR HEMOGLOBIN 31.3 pg (27.0-33.0); MONO # 0.4 10^3/uL (0.0-0.8); MONO % 6.6 % (2.0-8.0); NEUTROPHILS # 3.3 10^3/uL (1.5-8.5); NEUTROPHILS % 53.4 % (36.0-66.0); PLATELET COUNT, AUTOMATED 171 10^3/uL (150-450); RED BLOOD COUNT 3.77 10^6/uL (4.00-5.40); WHITE BLOOD COUNT 6.2 10^3/uL (4.0-10.0)
[2024-04-25 14:20] LABS: BLOOD UREA NITROGEN 17 MG/DL (9-23); CARBON DIOXIDE LEVEL 27 MMOL/L (20-31); CHLORIDE LEVEL 109 MMOL/L (98-107); GLOMERULAR FILTRATION RATE > 60.0 (>51); GLUCOSE, FASTING 95 MG/DL (60-100); POTASSIUM SERUM 3.7 MMOL/L (3.5-5.1); SODIUM LEVEL 140 MMOL/L (136-145)
[2024-04-25 14:22] LABS: INR 0.99; PARTIAL THROMBOPLASTIN TIME 31.5 SECONDS (24.8-34.2); PROTHROMBIN TIME 12.8 SECONDS (12.5-14.5)
[2024-04-25] MEDS ORDERED: ISOVUE-370 76% 100ML VIAL As Ordered ONE (14:42)
[2024-04-25] MEDS: ASPIRIN 325 MG TAB PO ONE (18:58)
[2024-04-25] MEDS ORDERED: ACETAMINOPHEN TAB 650MG DOSE (2X325MG) PO PRN (19:55)
[2024-04-25] MEDS ORDERED: MAALOX 30 ML SUSP *UDC PO PRN (19:55)
[2024-04-25] MEDS ORDERED: MOM 30ML SUSPENSION UDC PO PRN (19:55)
[2024-04-25] MEDS ORDERED: SERT-141 PO (20:05)
[2024-04-25] MEDS ORDERED: MELO15TA28 PO (20:05)
[2024-04-25] MEDS ORDERED: VITA200010 PO (20:05)
[2024-04-25] MEDS ORDERED: HOME MED LIST COMPLETE! XX SCH (20:10)
[2024-04-25] MEDS: DOCUSATE SODIUM 100MG CAPSULE PO SCH (20:59)
[2024-04-25 21:16] LABS: HEMOGLOBIN A1c 5.4 % (4.0-6.0)
[2024-04-25 21:30] LABS: C REACTIVE PROTEIN QUANTITATIV < 0.40 MG/DL (<1.0); CK-MB VALUE MASS < 1.0 NG/ML (<3.6)
[2024-04-25 21:31] LABS: ALBUMIN 3.5 G/DL (3.2-5.2); ALKALINE PHOSPHATASE 55 U/L (46-116); ALT/SGPT 14 U/L (7.0-40); AST/SGOT 9 U/L (<34); BILIRUBIN,DIRECT 0.1 MG/DL (<0.4); BILIRUBIN,TOTAL 0.3 MG/DL (0.3-1.2); CHOLESTEROL LEVEL 141 MG/DL (<200); CHOLESTEROL RISK RATIO 3.27 (<5); HDL CHOLESTEROL 43.1 MG/DL (>40); LDL CHOLESTEROL 79.3 MG/DL (<100); NON-HDL-C 97.9 MG/DL; TOTAL PROTEIN 6.2 G/DL (5.7-8.2); TRIGLYCERIDES LEVEL 93 MG/DL (<150)
[2024-04-25 21:38] LABS: CPK CREATINE PHOSPHOKINASE 57 U/L (34-145); MB/CK RELATIVE INDEX 1.75 (< OR =4)
[2024-04-26] VITALS (7 sets, daily range): BP systolic 104–120; BP diastolic 55–74; TEMP 97.1–98.2; O2SAT 93–96
[2024-04-26] MEDS: TOLTERODINE TARTRATE 2 MG LA CAP (DETROL LA) PO SCH (02:15)
[2024-04-26] MEDS: OMEPRAZOLE 20MG CAP PO SCH (02:15)
[2024-04-26 05:44] LABS: HEMATOCRIT 34.3 % (36.0-47.0); HEMOGLOBIN 11.2 g/dl (12.0-15.5); MEAN CORPUSCULAR HEMOGLOBIN 31.2 pg (27.0-33.0); MEAN CORPUSCULAR HGB CONC 32.7 g/dl (32.0-36.5); MEAN CORPUSCULAR VOLUME 95.5 fl (80.0-96.0); PLATELET COUNT, AUTOMATED 144 10^3/uL (150-450); RED BLOOD COUNT 3.59 10^6/uL (4.00-5.40); WHITE BLOOD COUNT 4.7 10^3/uL (4.0-10.0)
[2024-04-26 06:06] LABS: ALBUMIN 3.4 G/DL (3.2-5.2); ALKALINE PHOSPHATASE 51 U/L (46-116); ALT/SGPT 14 U/L (7.0-40); AST/SGOT 8 U/L (<34); BILIRUBIN,TOTAL 0.4 MG/DL (0.3-1.2); BLOOD UREA NITROGEN 16 MG/DL (9-23); CALCIUM LEVEL 8.8 MG/DL (8.5-10.1); CARBON DIOXIDE LEVEL 28 MMOL/L (20-31); CHLORIDE LEVEL 112 MMOL/L (98-107); CREATININE FOR GFR 0.72 MG/DL (0.55-1.30); GLOMERULAR FILTRATION RATE > 60.0 (>51); GLUCOSE, FASTING 92 MG/DL (60-100); MAGNESIUM LEVEL 1.9 MG/DL (1.8-2.4); POTASSIUM SERUM 4.5 MMOL/L (3.5-5.1); SODIUM LEVEL 143 MMOL/L (136-145)
[2024-04-26] MEDS: ENOXAPARIN 40MG/0.4ML SYRINGE (J1650 PER 10MG) SC SCH (08:06)
== END 2024-04-26 10:42 | disposition home or self-care (01) | DRG 125 ==
LOC: M ED 12:19 → M ED INP 19:53 → M PCU 04-26 00:31
PROVIDERS: ADMIT Preventive Medicine Undersea and Hyperbaric Medicine; ATTEND Internal Medicine Nephrology
DX: H53.8 Other visual disturbances (principal); Z68.41 Body mass index [BMI] 40.0-44.9, adult; K21.9 Gastro-esophageal reflux disease without esophagitis; E78.5 Hyperlipidemia, unspecified; F41.9 Anxiety disorder, unspecified; F32.A Depression, unspecified; G93.89 Other specified disorders of brain; N32.81 Overactive bladder; M54.9 Dorsalgia, unspecified; Z90.49 Acquired absence of other specified parts of digestive tract; Z79.899 Other long term (current) drug therapy; Z88.5 Allergy status to narcotic agent; Z88.8 Allergy status to other drugs, medicaments and biological substances; E66.01 Morbid (severe) obesity due to excess calories

== ENCOUNTER 2024-04-27 14:54 | Emergency (ER) | payer OTHER ==
[~2024-04-27] VITALS: Ht 165.1 cm; Wt 113.4 kg
[~2024-04-27 14:54] MED LIST changes: +MELO15TA28 PO; +VITA200010 PO
[2024-04-27] MEDS: KETOROLAC 30 MG/ML 1ML VIAL IV ONE (17:05)
[2024-04-27] MEDS: METOCLOPRAMIDE INJ 10MG/2ML VIAL IV ONE (17:05)
[2024-04-27] MEDS: ACETAMINOPHEN 500 MG TAB PO ONE (17:06)
[2024-04-27 17:14] LABS: BASO % 0.6 % (0.0-1.0); EOS # 0.1 10^3/uL (0.0-0.5); EOS % 1.3 % (0.0-3.0); HEMATOCRIT 38.4 % (36.0-47.0); HEMOGLOBIN 12.4 g/dl (12.0-15.5); LYMPH % 20.3 % (24.0-44.0); MEAN CORPUSCULAR HEMOGLOBIN 30.9 pg (27.0-33.0); MEAN CORPUSCULAR HGB CONC 32.3 g/dl (32.0-36.5); MEAN CORPUSCULAR VOLUME 95.8 fl (80.0-96.0); MONO # 0.5 10^3/uL (0.0-0.8); MONO % 11.1 % (2.0-8.0); NEUTROPHILS # 3.1 10^3/uL (1.5-8.5); NEUTROPHILS % 66.5 % (36.0-66.0); PLATELET COUNT, AUTOMATED 135 10^3/uL (150-450); RED BLOOD COUNT 4.01 10^6/uL (4.00-5.40); WHITE BLOOD COUNT 4.7 10^3/uL (4.0-10.0)
[2024-04-27 17:24] LABS: ERYTHROCYTE SEDIMENTATION RATE 14 mm/hr (0-30)
[2024-04-27 17:39] LABS: C REACTIVE PROTEIN QUANTITATIV < 0.40 MG/DL (<1.0)
[2024-04-27 17:41] LABS: BLOOD UREA NITROGEN 13 MG/DL (9-23); CALCIUM LEVEL 8.6 MG/DL (8.5-10.1); CARBON DIOXIDE LEVEL 29 MMOL/L (20-31); CHLORIDE LEVEL 107 MMOL/L (98-107); CREATININE FOR GFR 0.76 MG/DL (0.55-1.30); GLOMERULAR FILTRATION RATE > 60.0 (>51); GLUCOSE, FASTING 68 MG/DL (60-100); POTASSIUM SERUM 4.1 MMOL/L (3.5-5.1); SODIUM LEVEL 139 MMOL/L (136-145)
[2024-04-27 18:20] VITALS: BP 102/64; TEMP 97.8; O2SAT 100
== END 2024-04-27 18:29 | disposition home or self-care (01) ==
LOC: M ED 14:54
DX: R51.9 Headache, unspecified (principal); K21.9 Gastro-esophageal reflux disease without esophagitis; M54.9 Dorsalgia, unspecified; Z86.73 Personal history of transient ischemic attack (TIA), and cerebral infarction without residual deficits; F17.200 Nicotine dependence, unspecified, uncomplicated; Z79.899 Other long term (current) drug therapy; Z88.5 Allergy status to narcotic agent; Z88.8 Allergy status to other drugs, medicaments and biological substances
CPT/HCPCS: 80048; 85025; 85652; 86140; 96374; 96375; 99284; J1885; J2765

== ENCOUNTER 2024-06-11 16:53 | Inpatient (IN) | payer OTHER ==
[~2024-06-11] VITALS: Ht 165.1 cm; Wt 118.0 kg
[~2024-06-11 16:53] MED LIST changes: +GABA-1172 PO; -GABA-282 PO
[2024-06-11] MEDS: TETRACAINE 0.5% OPHTH SOLN 4ML OD ONE (19:27)
[2024-06-11 20:10] LABS: BASO % 0.3 % (0.0-1.0); EOS # 0.1 10^3/uL (0.0-0.5); EOS % 1.8 % (0.0-3.0); HEMATOCRIT 34.8 % (36.0-47.0); HEMOGLOBIN 11.3 g/dl (12.0-15.5); LYMPH # 2.6 10^3/uL (1.5-5.0); LYMPH % 43.3 % (24.0-44.0); MEAN CORPUSCULAR HEMOGLOBIN 30.7 pg (27.0-33.0); MEAN CORPUSCULAR HGB CONC 32.5 g/dl (32.0-36.5); MEAN CORPUSCULAR VOLUME 94.6 fl (80.0-96.0); MONO # 0.4 10^3/uL (0.0-0.8); MONO % 6.7 % (2.0-8.0); NEUTROPHILS # 2.9 10^3/uL (1.5-8.5); NEUTROPHILS % 47.7 % (36.0-66.0); PLATELET COUNT, AUTOMATED 165 10^3/uL (150-450); RED BLOOD COUNT 3.68 10^6/uL (4.00-5.40)
[2024-06-11 20:27] LABS: CK-MB VALUE MASS < 1.0 NG/ML (<3.6)
[2024-06-11 20:28] LABS: BLOOD UREA NITROGEN 23 MG/DL (9-23); CARBON DIOXIDE LEVEL 24 MMOL/L (20-31); CHLORIDE LEVEL 110 MMOL/L (98-107); CREATININE FOR GFR 0.76 MG/DL (0.55-1.30); D-DIMER QUANT 1.03 ug/mL (<0.5); GLOMERULAR FILTRATION RATE > 60.0 (>51); GLUCOSE, FASTING 90 MG/DL (60-100); INR 1.05; MAGNESIUM LEVEL 1.7 MG/DL (1.8-2.4); PARTIAL THROMBOPLASTIN TIME 27.8 SECONDS (24.8-34.2); POTASSIUM SERUM 4.3 MMOL/L (3.5-5.1); PROTHROMBIN TIME 13.3 SECONDS (12.5-14.5); SODIUM LEVEL 139 MMOL/L (136-145)
[2024-06-11 20:30] LABS: CPK CREATINE PHOSPHOKINASE 77 U/L (34-145); MB/CK RELATIVE INDEX 1.29 (< OR =4)
[2024-06-11] MEDS ORDERED: ISOVUE-370 76% 100ML VIAL As Ordered ONE (20:30)
[2024-06-11] MEDS ORDERED: ASPI81TA26 PO (22:46)
[2024-06-11] MEDS ORDERED: HOME MED LIST COMPLETE! XX SCH (22:50)
[2024-06-12] MEDS ORDERED: ACETAMINOPHEN 325 MG TAB PO PRN (00:35)
[2024-06-12] MEDS ORDERED: MOM 30ML SUSPENSION UDC PO PRN (00:35)
[2024-06-12] MEDS: MAG SULF 1GM/100ML (MAG RUN) 1 GM in IV 1 EA IV ONE (02:45)
[2024-06-12 03:20] VITALS: BP 108/54; TEMP 97.7
[2024-06-12] MEDS ORDERED: RIZATRIPTAN BENZOATE 10 MG TAB PO PRN (06:00)
[2024-06-12 06:42] LABS: MAGNESIUM LEVEL 1.9 MG/DL (1.8-2.4)
[2024-06-12 07:38] LABS: HEMATOCRIT 35.6 % (36.0-47.0); HEMOGLOBIN 11.3 g/dl (12.0-15.5); MEAN CORPUSCULAR HEMOGLOBIN 30.8 pg (27.0-33.0); MEAN CORPUSCULAR HGB CONC 31.7 g/dl (32.0-36.5); PLATELET COUNT, AUTOMATED 130 10^3/uL (150-450); RED BLOOD COUNT 3.67 10^6/uL (4.00-5.40); WHITE BLOOD COUNT 4.7 10^3/uL (4.0-10.0)
[2024-06-12 07:49] LABS: ALBUMIN 3.2 G/DL (3.2-5.2); ALKALINE PHOSPHATASE 50 U/L (46-116); ALT/SGPT 13 U/L (7.0-40); AST/SGOT < 8 U/L (<34); BILIRUBIN,TOTAL 0.5 MG/DL (0.3-1.2); BLOOD UREA NITROGEN 17 MG/DL (9-23); CARBON DIOXIDE LEVEL 27 MMOL/L (20-31); CHLORIDE LEVEL 109 MMOL/L (98-107); CREATININE FOR GFR 0.69 MG/DL (0.55-1.30); GLOMERULAR FILTRATION RATE > 60.0 (>51); GLUCOSE, FASTING 84 MG/DL (60-100); SODIUM LEVEL 139 MMOL/L (136-145); TOTAL PROTEIN 6.2 G/DL (5.7-8.2)
[2024-06-12] MEDS: TOLTERODINE TARTRATE 2 MG LA CAP (DETROL LA) PO SCH (09:38)
[2024-06-12] MEDS: CETIRIZINE (ZyrTEC) 10 MG TAB PO SCH (09:38)
[2024-06-12] MEDS: OMEPRAZOLE 20MG CAP PO SCH (09:38)
[2024-06-12] MEDS: ASPIRIN 81MG ENTERIC TABLET PO SCH (09:39)
[2024-06-12] MEDS: ENOXAPARIN 40MG/0.4ML SYRINGE (J1650 PER 10MG) SC SCH (09:39)
[2024-06-12] MEDS: SERTRALINE HCL 50 MG TAB PO SCH (09:39)
[2024-06-12 11:52] VITALS: BP 99/49; TEMP 97.9; O2SAT 95
[2024-06-12] MEDS ORDERED: SERTRALINE HCL 25 MG TABLET PO SCH (21:00)
[2024-06-12] MEDS ORDERED: ATORVASTATIN 20 MG TAB PO SCH (21:00)
== END 2024-06-12 17:25 | disposition home or self-care (01) | DRG 125 ==
LOC: M ED 16:53 → M ED INP 06-12 00:35 → EEVIPCON 06-12 00:35 → M MS5PR 06-12 03:20
PROVIDERS: ADMIT Student in an Organized Health Care Education/Training Program; ATTEND Internal Medicine
PROC: B246ZZZ Ultrasonography of Right and Left Heart (ICD-10-PCS; principal; 2024-06-12)
DX: H34.11 Central retinal artery occlusion, right eye (principal); K21.9 Gastro-esophageal reflux disease without esophagitis; E78.5 Hyperlipidemia, unspecified; F41.9 Anxiety disorder, unspecified; F32.A Depression, unspecified; M54.9 Dorsalgia, unspecified; N32.81 Overactive bladder; R00.1 Bradycardia, unspecified; Z90.49 Acquired absence of other specified parts of digestive tract; Z90.79 Acquired absence of other genital organ(s); Z87.891 Personal history of nicotine dependence; E83.42 Hypomagnesemia; Z79.82 Long term (current) use of aspirin; Z79.899 Other long term (current) drug therapy; Z88.5 Allergy status to narcotic agent; Z88.8 Allergy status to other drugs, medicaments and biological substances

== ENCOUNTER → 2024-06-18 | Outpatient (CLI) | payer OTHER ==
[~2024-06-18] MED LIST changes: +ASPI81TA26 PO
[2024-06-18 09:04] LABS: BASO % 0.8 % (0.0-1.0); EOS # 0.1 10^3/uL (0.0-0.5); EOS % 1.9 % (0.0-3.0); HEMATOCRIT 35.9 % (36.0-47.0); HEMOGLOBIN 11.7 g/dl (12.0-15.5); LYMPH # 1.9 10^3/uL (1.5-5.0); LYMPH % 40.6 % (24.0-44.0); MEAN CORPUSCULAR HEMOGLOBIN 30.4 pg (27.0-33.0); MEAN CORPUSCULAR HGB CONC 32.6 g/dl (32.0-36.5); MEAN CORPUSCULAR VOLUME 93.2 fl (80.0-96.0); MONO # 0.5 10^3/uL (0.0-0.8); MONO % 9.6 % (2.0-8.0); NEUTROPHILS # 2.2 10^3/uL (1.5-8.5); NEUTROPHILS % 46.7 % (36.0-66.0); PLATELET COUNT, AUTOMATED 164 10^3/uL (150-450); RED BLOOD COUNT 3.85 10^6/uL (4.00-5.40); WHITE BLOOD COUNT 4.8 10^3/uL (4.0-10.0)
[2024-06-18 09:13] LABS: ERYTHROCYTE SEDIMENTATION RATE 17 mm/hr (0-30)
[2024-06-18 09:26] LABS: URIC ACID 4.2 MG/DL (3.1-7.8)
[2024-06-18 09:30] LABS: ALBUMIN 3.5 G/DL (3.2-5.2); ALKALINE PHOSPHATASE 53 U/L (46-116); ALT/SGPT 16 U/L (7.0-40); AST/SGOT 9 U/L (<34); BILIRUBIN,TOTAL 0.7 MG/DL (0.3-1.2); BLOOD UREA NITROGEN 14 MG/DL (9-23); CALCIUM LEVEL 8.8 MG/DL (8.5-10.1); CARBON DIOXIDE LEVEL 27 MMOL/L (20-31); CHLORIDE LEVEL 109 MMOL/L (98-107); CHOLESTEROL LEVEL 151 MG/DL (<200); CHOLESTEROL RISK RATIO 3.82 (<5); CREATININE FOR GFR 0.67 MG/DL (0.55-1.30); GLOMERULAR FILTRATION RATE > 60.0 (>51); GLUCOSE, FASTING 102 MG/DL (60-100); HDL CHOLESTEROL 39.5 MG/DL (>40); LDL CHOLESTEROL 90.5 MG/DL (<100); NON-HDL-C 111.5 MG/DL; POTASSIUM SERUM 4.4 MMOL/L (3.5-5.1); RHEUMATOID FACTOR QUANT 6.9 IU/ML (<14); SODIUM LEVEL 141 MMOL/L (136-145); THYROID STIMULATING HORMONE 0.133 uIU/ML (0.55-4.78); TOTAL 25(OH) VITAMIN D 33.4 NG/ML (20.0-100.0); TOTAL PROTEIN 6.5 G/DL (5.7-8.2); TRIGLYCERIDES LEVEL 105 MG/DL (<150)
[2024-06-18 09:31] LABS: FREE T4 1.76 NG/DL (0.89-1.76)
[2024-06-20 12:32] LABS: ANA SCREEN, IFA NEGATIVE (NEGATIVE)
[2024-06-20 22:08] LABS: SSA SJOGRENS A <1.0 NEG AI (<1.0 NEG); SSB SJOGRENS B <1.0 NEG AI (<1.0 NEG)
[2024-06-21 00:28] LABS: CYCLIC CITRULLINATED PEPTIDE < 16 UNITS (<20)
[2024-06-22 01:08] LABS: LYME TOTAL ANTIBODY CIA <= 0.90 Index (<=0.90)
== END ==
LOC: M LAB 08:22
PROVIDERS: ATTEND Nurse Practitioner Family
DX: E78.2 Mixed hyperlipidemia (principal); E55.9 Vitamin D deficiency, unspecified; M12.9 Arthropathy, unspecified

== ENCOUNTER 2024-08-12 06:09 | Day surgery (SDC) | payer OTHER ==
[~2024-08-12] VITALS: Ht 162.6 cm; Wt 122.0 kg
[2024-08-12] MEDS ORDERED: propofoL 200 MG/20 ML VIAL As Ordered ONE (06:24)
[2024-08-12] MEDS ORDERED: LIDOCAINE 2% 100MG/5ML SDV (FOR ANES.) As Ordered ONE (06:24)
[2024-08-12] MEDS ORDERED: fentaNYL 100 MCG/2 ML INJECTION As Ordered ONE (06:25)
[2024-08-12] MEDS ORDERED: MIDAZOLAM INJ 2MG/2ML VIAL As Ordered ONE (06:25)
[2024-08-12] MEDS ORDERED: NS 1,000 ML IV SCH (06:45)
[2024-08-12] MEDS: CETACAINE SPRAY 5GM As Ordered ONE (08:00)
[2024-08-12] MEDS: LIDOCAINE VISCOUS 2% SOLN 15ML UDC As Ordered ONE (08:06)
[2024-08-12 08:45] VITALS: BP 112/55; TEMP 97.6; O2SAT 96
== END 2024-08-12 09:14 | disposition home or self-care (01) ==
LOC: M SDC 06:09
PROVIDERS: ATTEND Internal Medicine Cardiovascular Disease
DX: G45.9 Transient cerebral ischemic attack, unspecified (principal); Q21.12 Patent foramen ovale; R93.1 Abnormal findings on diagnostic imaging of heart and coronary circulation; H53.9 Unspecified visual disturbance; Z68.42 Body mass index [BMI] 45.0-49.9, adult; Z88.5 Allergy status to narcotic agent; Z88.8 Allergy status to other drugs, medicaments and biological substances; Z79.899 Other long term (current) drug therapy
CPT/HCPCS: 93312; 93320; 93325; J2250; J3010

== ENCOUNTER 2024-09-15 08:31 | Emergency (ER) | payer OTHER ==
[~2024-09-15] VITALS: Ht 162.6 cm; Wt 127.3 kg
[2024-09-15] MEDS ORDERED: ISOVUE-370 76% 100ML VIAL As Ordered ONE (08:53)
[2024-09-15 09:13] LABS: BASO % 0.7 % (0.0-1.0); EOS # 0.1 10^3/uL (0.0-0.5); EOS % 1.4 % (0.0-3.0); HEMATOCRIT 38.1 % (36.0-47.0); HEMOGLOBIN 12.1 g/dl (12.0-15.5); LYMPH # 2.6 10^3/uL (1.5-5.0); LYMPH % 44.6 % (24.0-44.0); MEAN CORPUSCULAR HEMOGLOBIN 30.4 pg (27.0-33.0); MEAN CORPUSCULAR HGB CONC 31.8 g/dl (32.0-36.5); MEAN CORPUSCULAR VOLUME 95.7 fl (80.0-96.0); MONO # 0.3 10^3/uL (0.0-0.8); MONO % 5.5 % (2.0-8.0); NEUTROPHILS # 2.7 10^3/uL (1.5-8.5); NEUTROPHILS % 47.3 % (36.0-66.0); PLATELET COUNT, AUTOMATED 159 10^3/uL (150-450); RED BLOOD COUNT 3.98 10^6/uL (4.00-5.40); WHITE BLOOD COUNT 5.8 10^3/uL (4.0-10.0)
[2024-09-15] MEDS ORDERED: FLUO-290 PO (09:19)
[2024-09-15 09:34] LABS: INR 1.02; PARTIAL THROMBOPLASTIN TIME 34.3 SECONDS (24.8-34.2); PROTHROMBIN TIME 13.7 SECONDS (12.5-14.5)
[2024-09-15] MEDS ORDERED: HOME MED LIST COMPLETE! XX SCH (11:25)
[2024-09-15] MEDS ORDERED: ASPI325T48 PO (11:37)
[2024-09-15 12:00] VITALS: BP 125/77; TEMP 96; O2SAT 98
== END 2024-09-15 12:00 | disposition home or self-care (01) ==
LOC: M ED 08:31
DX: G45.9 Transient cerebral ischemic attack, unspecified (principal); E78.5 Hyperlipidemia, unspecified; K21.9 Gastro-esophageal reflux disease without esophagitis; F41.9 Anxiety disorder, unspecified; F32.A Depression, unspecified; G43.909 Migraine, unspecified, not intractable, without status migrainosus; Z79.899 Other long term (current) drug therapy; Z88.5 Allergy status to narcotic agent; Z88.8 Allergy status to other drugs, medicaments and biological substances
CPT/HCPCS: 70450; 70496; 70498; 71045; 80047; 85025; 85610; 85730; 86850; 93005; 93041; 94760; 99285; Q9967

== ENCOUNTER → 2024-10-18 | Outpatient (CLI) | payer OTHER ==
[~2024-10-18] MED LIST changes: +ASPI325T48 PO; +FLUO-290 PO
== END ==
LOC: M SLEEP 20:00
PROVIDERS: ATTEND Physician Assistant
DX: G47.33 Obstructive sleep apnea (adult) (pediatric) (principal)

== ENCOUNTER 2025-06-08 15:34 | Emergency (ER) | payer OTHER ==
[~2025-06-08] VITALS: Ht 165.1 cm; Wt 127.3 kg
[~2025-06-08 15:34] MED LIST changes: +AMIT10TA11 PO; -AMIT10TA7 PO; -IBUP-1022 PO; +IBUP600T42 PO; +LIDO1ADH93 TOP; -LIDO5DIS41 TOP
[2025-06-08 15:44] VITALS: O2SAT 98
[2025-06-08] MEDS ORDERED: IBUP200C28 PO (15:46)
[2025-06-08] MEDS ORDERED: ACET500P3 PO (15:46)
[2025-06-08] MEDS ORDERED: ACET-897 PO (15:46)
[2025-06-08 16:29] LABS: BASO # 0.0 10^3/uL (0.0-0.2); BASO % 0.4 % (0.0-1.0); EOS # 0.1 10^3/uL (0.0-0.5); EOS % 1.4 % (0.0-3.0); LYMPH # 2.5 10^3/uL (1.5-5.0); LYMPH % 35.1 % (24.0-44.0); MONO # 0.5 10^3/uL (0.0-0.8); MONO % 6.8 % (2.0-8.0); NEUTROPHILS # 4.0 10^3/uL (1.5-8.5); NEUTROPHILS % 55.9 % (36.0-66.0); PLATELET COUNT, AUTOMATED 178 10^3/uL (150-450)
[2025-06-08 16:57] LABS: ALT/SGPT 16 U/L (7.0-40); AST/SGOT 14 U/L (<34); CALCIUM LEVEL 8.7 MG/DL (8.5-10.1); CARBON DIOXIDE LEVEL 27 MMOL/L (20-31); CHLORIDE LEVEL 106 MMOL/L (98-107); CREATININE FOR GFR 0.72 MG/DL (0.55-1.30); GLOMERULAR FILTRATION RATE > 90.0 (>51); POTASSIUM SERUM 3.8 MMOL/L (3.5-5.1); SODIUM LEVEL 143 MMOL/L (136-145)
[2025-06-08 17:22] VITALS: TEMP 96.8
[2025-06-08 17:28] VITALS: BP 119/56
== END 2025-06-08 17:41 | disposition home or self-care (01) ==
LOC: M ED 15:34
DX: R07.89 Other chest pain (principal); M94.9 Disorder of cartilage, unspecified; K21.9 Gastro-esophageal reflux disease without esophagitis; E78.5 Hyperlipidemia, unspecified; E66.9 Obesity, unspecified; F41.9 Anxiety disorder, unspecified; F32.A Depression, unspecified; G43.909 Migraine, unspecified, not intractable, without status migrainosus; Z86.73 Personal history of transient ischemic attack (TIA), and cerebral infarction without residual deficits; Z79.899 Other long term (current) drug therapy; Z88.5 Allergy status to narcotic agent; Z88.8 Allergy status to other drugs, medicaments and biological substances

== ENCOUNTER → 2025-06-23 | Outpatient (CLI) | payer OTHER ==
[~2025-06-23] MED LIST changes: +ACET-897 PO; +ACET500P3 PO; +IBUP200C28 PO
== END ==
LOC: M PLAIMG 14:42
PROVIDERS: ATTEND Nurse Practitioner
DX: M43.17 Spondylolisthesis, lumbosacral region (principal)

== ENCOUNTER → 2025-07-07 | Outpatient (CLI) | payer OTHER ==
[~2025-07-07] MED LIST changes: +ISOVUE-370 76% 100 ML VIAL As Ordered ONE
== END ==
LOC: M RAD 15:58
PROVIDERS: ATTEND Nurse Practitioner Family
DX: R10.84 Generalized abdominal pain (principal); I70.0 Atherosclerosis of aorta; M43.06 Spondylolysis, lumbar region; M41.9 Scoliosis, unspecified; M47.815 Spondylosis without myelopathy or radiculopathy, thoracolumbar region
CPT/HCPCS: 74177; Q9967

== ENCOUNTER → 2025-07-13 | Outpatient (CLI) | payer OTHER ==
[~2025-07-13] MED LIST changes: -ISOVUE-370 76% 100 ML VIAL As Ordered ONE
== END ==
LOC: M RAD 12:13
PROVIDERS: ATTEND Nurse Practitioner Family
DX: R05.9 Cough, unspecified (principal)

== ENCOUNTER → 2025-07-29 | Outpatient (REF) | payer OTHER ==
[2025-07-29 14:03] LABS: BASO # 0.0 10^3/uL (0.0-0.2); BASO % 0.6 % (0.0-1.0); EOS # 0.1 10^3/uL (0.0-0.5); EOS % 1.4 % (0.0-3.0); LYMPH # 2.5 10^3/uL (1.5-5.0); LYMPH % 34.4 % (24.0-44.0); MONO # 0.5 10^3/uL (0.0-0.8); MONO % 7.0 % (2.0-8.0); NEUTROPHILS # 4.0 10^3/uL (1.5-8.5); NEUTROPHILS % 56.2 % (36.0-66.0); PLATELET COUNT, AUTOMATED 196 10^3/uL (150-450)
[2025-07-29 14:31] LABS: ALT/SGPT 18 U/L (7.0-40); AST/SGOT 13 U/L (<34); CALCIUM LEVEL 8.5 MG/DL (8.5-10.1); CARBON DIOXIDE LEVEL 29 MMOL/L (20-31); CHLORIDE LEVEL 104 MMOL/L (98-107); CHOLESTEROL LEVEL 220 MG/DL (<200); CHOLESTEROL RISK RATIO 4.05 (<5); CPK CREATINE PHOSPHOKINASE 44 U/L (34-145); CREATININE FOR GFR 0.68 MG/DL (0.55-1.30); GLOMERULAR FILTRATION RATE > 90.0 (>51); LDL CHOLESTEROL 126.8 MG/DL (<100); MAGNESIUM LEVEL 1.8 MG/DL (1.8-2.4); NON-HDL-C 165.8 MG/DL; POTASSIUM SERUM 4.3 MMOL/L (3.5-5.1); SODIUM LEVEL 143 MMOL/L (136-145); TRIGLYCERIDES LEVEL 195 MG/DL (<150)
[2025-07-29 14:36] LABS: FREE T4 1.17 NG/DL (0.89-1.76)
== END ==
LOC: M PLALAB 13:20
PROVIDERS: ATTEND Nurse Practitioner Family
DX: R07.89 Other chest pain (principal); E78.2 Mixed hyperlipidemia

== ENCOUNTER → 2025-08-21 | Outpatient (CLI) | payer OTHER | LOC: M RAD 15:44 | PROVIDERS: ATTEND Nurse Practitioner Family | DX: Z87.891 Personal history of nicotine dependence (principal) ==